=== PATIENT | male | born 1965 | race Caucasian/White ===

== ENCOUNTER 2023-01-06 17:20 | Emergency (ER) | payer BC, OTHER ==
[2023-01-06 17:31] VITALS: PULSE 85; TEMP 98.2
[2023-01-06 18:31] LABS: HCT 44.5 % (39.0-53.0); HGB 15.1 gm/dL (13.0-17.5); MCH 30.4 pg (25.0-35.0); MCHC 33.9 g/dL (31.0-37.0); MCV 89.7 fL (80.0-100.0); Mean Platelet Volume 8.1; Platelet Count 239 k/uL (150-450); RBC 4.96 m/uL (4.30-5.90); RDW 13.2 % (11.5-15.5); WBC 6.1 k/uL (3.8-10.6)
--- NOTE | 2023-01-06 18:44 | ED ---
General Adult HPI - General Chief complaint: Altered Mental Status Stated complaint: ALZHEIMERS OBSERVATION Time Seen by Provider: 01/06/23 17:41 Source: patient, family, police, RN notes reviewed, old records reviewed Mode of arrival: EMS Limitations: altered mental status - History of Present Illness Initial comments: 57-year-old male who is presented for mental health evaluation per patient has known diagnosis of dementia and has had worsening agitation over the past several months. The police and they called to the house innumerable times for b bozena. There's been several medication changes which have not successfully improved the patient's energy level or agitation level. He himself is not able to give any historical details. His is at bedside and local farmer general is also available. Patient has been petitioned for mental health evaluation. - Related Data Allergies Allergy/AdvReac Type Severity Reaction Status Date / Time No Known Allergies Allergy Verified 01/06/23 17:31 Review of Systems ROS Statement: Those systems with pertinent positive or pertinent negative responses have been documented in the HPI. ROS Other: All systems not noted in ROS Statement are negative. Past Medical History Past Medical History: Dementia Additional Past Medical History / Comment(s): Alzheimers General Exam Limitations: altered mental status General appearance: alert, in no apparent distress Head exam: Present: atraumatic, normocephalic Eye exam: Present: normal appearance, PERRL ENT exam: Present: normal exam Neck exam: Present: normal inspection. Absent: tenderness Respiratory exam: Present: normal lung sounds bilaterally. Absent: respiratory distress Cardiovascular Exam: Present: regular rate, normal rhythm GI/Abdominal exam: Present: soft. Absent: distended Extremities exam: Present: normal inspection Neurological exam: Present: alert, CN II-XII intact, normal gait. Absent: oriented X3, motor sensory deficit Psychiatric exam: Present: agitated, anxious Skin exam: Present: warm, dry, intact Course Vital Signs 01/06/23 17:27 Temperature 98.2 F Pulse Rate 85 Respiratory 18 Rate Blood Pressure 154/98 O2 Sat by Pulse 97 Oximetry - Reevaluation(s) Reevaluation #1: 01/06/23 1900 Cleared for EPS Reevaluation #2: 01/06/23 2100 Patient care signed out at shift change awaiting disposition Medical Decision Making - Medical Decision Making Was pt. sent in by a medical professional or institution (Dr., PA, PATENT LEATHER SORTER, urgent care, hospital, or fpc...) When possible be specific @ -No Did you speak to anyone other than the patient for history (EMS, parent, family, police, friend...)? What history was obtained from this source @ -No Did you review nursing and triage notes (agree or disagree)? Why? @ -I reviewed and agree with nursing and triage notes Were old charts reviewed (outside hosp., previous admission, EMS record, old EKG, old radiological studies, urgent care reports/EKG's, fpc records)? Report findings @ -No old charts were reviewed Differential Diagnosis (chest pain, altered mental status, abdominal pain women, abdominal pain men, vaginal bleeding, weakness, fever, dyspnea, syncope, headache, dizziness, GI bleed, back pain, seizure, CVA, palpatations, mental health, musculoskeletal)? @ -not applicable EKG interpreted by me (3pts min.). @ -As above X-rays interpreted by me (1pt min.). @ -None done CT interpreted by me (1pt min.). @ -None done U/S interpreted by me (1pt. min.). @ -None done What testing was considered but not performed or refused? (CT, X-rays, U/S, labs)? Why? @ -None What meds were considered but not given or refused? Why? @ -None Did you discuss the management of the patient with other professionals (professionals i.e. FISH Arriola, [facility] LEATHER SORTER, lab, RT, psych nurse, social media marketer, concrete craftsman, teacher, asset protection officer, shoe parts caser)? Give summary @ Patient patient was evaluated by EPS and ultimately requested discharge and will follow with neurology on Sunday Was smoking cessation discussed for >3mins.? @ -No Was critical care preformed (if so, how long)? @ -No Were there social determinants of health that impacted care today? How? (Homelessness, low income, unemployed, alcoholism, drug addiction, transpo rtation, low edu. Level, literacy, decrease access to med. care, group home, rehab)? @ -No Was there de-escalation of care discussed even if they declined (Discuss DNR or withdrawal of care, Hospice)? DNR status @ -No What co-morbidities impacted this encounter? (DM, HTN, Smoking, COPD, CAD, Cancer, CVA, ARF, Chemo, Hep., AIDS, mental health diagnosis, sleep apnea, morbid obesity)? @ -[Alzheimer dementia Was patient admitted / discharged? Hospital course, mention meds given and route, prescriptions, significant lab abnormalities, going to OR and other pertinent info. @ -[Patient discharged Undiagnosed new problem with uncertain prognosis? @ -No Drug Therapy requiring intensive monitoring for toxicity (Heparin, Nitro, Insulin, Cardizem)? @ -No Were any procedures done? @ -No Diagnosis/symptom? @ Dementia Acute, or Chronic, or Acute on Chronic? @Chronic Uncomplicated (without systemic symptoms) or Complicated (systemic symptoms)? @ -default Side effects of treatment? @ -No Exacerbation, Progression, or Severe Exacerbation? @ -No Poses a threat to life or bodily function? How? (Chest pain, [place], [place], pneumonia, PE, COPD, DKA, ARF, appy, cholecystitis, CVA, Diverticulitis, Homicidal, Suicidal, threat to staff... and all critical care pts) @ -No - Lab Data Result diagrams: 01/06/23 18:14 01/06/23 17:54 Lab Results 01/06/23 01/06/23 01/06/23 Range/Units 17:54 17:54 18:14 WBC 6.1 (3.8-10.6) k/uL RBC 4.96 (4.30-5.90) m/uL Hgb 15.1 (13.0-17.5) gm/dL Hct 44.5 (39.0-53.0) % MCV 89.7 (80.0-100.0) fL MCH 30.4 (25.0-35.0) pg MCHC 33.9 (31.0-37.0) g/dL RDW 13.2 (11.5-15.5) % Plt Count 239 (150-450) k/uL MPV 8.1 Sodium 140 (137-145) mmol/L Potassium 4.1 (3.5-5.1) mmol/L Chloride 106 (98-107) mmol/L Carbon Dioxide 27 (22-30) mmol/L Anion Gap 7 mmol/L BUN 13 (9-20) mg/dL Creatinine 0.72 (0.66-1.25) mg/dL Est GFR (CKD-EPI)AfAm >90 (>60 ml/min/1.73 sqM) Est GFR (CKD-EPI)NonAf >90 (>60 ml/min/1.73 sqM) Glucose 93 (74-99) mg/dL Calcium 9.1 (8.4-10.2) mg/dL Total Bilirubin 0.5 (0.2-1.3) mg/dL AST 33 (17-59) U/L ALT 29 (4-49) U/L Alkaline Phosphatase 63 (38-126) U/L Total Protein 6.9 (6.3-8.2) g/dL Albumin 4.2 (3.5-5.0) g/dL Coronavirus (PCR) Not Detected (Not Detectd) Disposition Clinical Impression: Dementia Disposition: HOME SELF-CARE Condition: Fair Instructions (If sedation given, give patient instructions): Alzheimer Disease (DC), Dementia (ED) Is patient prescribed a controlled substance at d/c from ED?: No Referrals: Bryant Musa MD [Primary Care Provider] - 1-2 days Time of Disposition: 20:05
[2023-01-06] MEDS ORDERED: LORazepam 2 MG/ML INJ IV STA (18:52)
[2023-01-06 19:55] LABS: ALT 29 U/L (4-49); AST 33 U/L (17-59); African American GFR (CKD) >90 (>60 ml/min/1.73 sqM); Albumin 4.2 g/dL (3.5-5.0); Alkaline Phosphatase 63 U/L (38-126); Anion Gap 7 mmol/L; Blood Urea Nitrogen 13 mg/dL (9-20); Calcium 9.1 mg/dL (8.4-10.2); Carbon Dioxide 27 mmol/L (22-30); Chloride 106 mmol/L (98-107); Glucose 93 mg/dL (74-99); Non-African American GFR(CKD) >90 (>60 ml/min/1.73 sqM); Potassium 4.1 mmol/L (3.5-5.1); Sodium 140 mmol/L (137-145); Total Bilirubin 0.5 mg/dL (0.2-1.3); Total Protein 6.9 g/dL (6.3-8.2)
[2023-01-06 20:28] VITALS: BP 144/95; RESP 20
== END 2023-01-06 20:28 | disposition home or self-care (01) ==
LOC: EC 17:20
DX: G30.9 Alzheimer's disease, unspecified (principal); F02.80 Dementia in other diseases classified elsewhere, unspecified severity, without behavioral disturbance, psychotic disturbance, mood disturbance, and anxiety; Z20.822 Contact with and (suspected) exposure to COVID-19
CPT/HCPCS: 96374; 82075; 36415; 80053; 85027; 87635; 99285; J2060; 99284

== ENCOUNTER 2024-05-31 15:50 | Inpatient (IN) | payer BC, OTHER ==
--- NOTE | 2024-05-31 16:00 | ED ---
Altered Mental Status HPI - General Stated Complaint: AMS Time Seen by Provider: 05/31/24 15:52 Source: RN notes reviewed, old records reviewed Mode of arrival: EMS Limitations: altered mental status, physical limitation - History of Present Illness Initial Comments: This is a 58-year-old male to the ER. Patient has underlying significant dementia unable to provide accurate history but per staffing at facility patient's mental health is significantly deteriorated, changed change in mental capacity and responsiveness. Patient is unable to give any history here in the emergency department MD Complaint: altered mental status, decreased responsiveness, weakness -: unknown Severity: moderate Consistency of Symptoms: getting worse Context: history of similar presentation Associated Symptoms: weakness Treatments Prior to Arrival: oxygen - Related Data Home Medications Medication Instructions Recorded Confirmed FLUoxetine HCL [Sarafem] 60 mg PO MOTUWETHFR 05/31/24 05/31/24 Haloperidol Oral Soln [Haldol Oral 2 mg PO DAILY 05/31/24 05/31/24 Soln] Valproic Acid Oral Soln [Depakene 500 mg PO BID 05/31/24 05/31/24 Syrup] Previous Rx's Medication Instructions Recorded Memantine [Namenda] 5 mg PO BID 30 Days #60 tab 06/06/24 Ertapenem [INVanz] 1 gm IVPB DAILY #28 each 06/07/24 Fluconazole [Diflucan] 200 mg PO DAILY 14 Days #14 tab 06/07/24 Allergies Allergy/AdvReac Type Severity Reaction Status Date / Time No Known Allergies Allergy Verified 06/02/24 13:01 Review of Systems ROS Statement: Those systems with pertinent positive or pertinent negative responses have been documented in the HPI. ROS Other: All systems not noted in ROS Statement are negative. Past Medical History Past Medical History: Dementia Additional Past Medical History / Comment(s): Alzheimers General Exam Limitations: altered mental status, physical limitation General appearance: alert, in no apparent distress Head exam: Present: atraumatic, normocephalic, normal inspection Eye exam: Present: normal appearance, PERRL, EOMI. Absent: scleral icterus, conjunctival injection, periorbital swelling ENT exam: Present: normal exam, mucous membranes moist Neck exam: Present: normal inspection. Absent: tenderness, meningismus, lymphadenopathy Respiratory exam: Present: normal lung sounds bilaterally. Absent: respiratory distress, wheezes, rales, rhonchi, stridor Cardiovascular Exam: Present: regular rate, normal rhythm, normal heart sounds. Absent: systolic murmur, diastolic murmur, rubs, gallop, clicks GI/Abdominal exam: Present: soft, normal bowel sounds. Absent: distended, tenderness, guarding, rebound, rigid Extremities exam: Present: normal inspection, full ROM, normal capillary refill. Absent: tenderness, pedal edema, joint swelling, calf tenderness Back exam: Present: normal inspection Neurological exam: Present: alert, oriented X3, CN II-XII intact Psychiatric exam: Present: normal affect, normal mood Skin exam: Present: warm, dry, intact, normal color. Absent: rash Course Vital Signs 05/31/24 05/31/24 05/31/24 16:19 17:18 19:04 Temperature 97.6 F Pulse Rate 72 74 89 Respiratory 18 18 16 Rate Blood Pressure 95/82 111/63 121/84 O2 Sat by Pulse 100 97 99 Oximetry 05/31/24 20:47 Temperature 98.4 F Pulse Rate 89 Respiratory 16 Rate Blood Pressure 103/63 O2 Sat by Pulse 97 Oximetry - Reevaluation(s) Reevaluation #1: 05/31/24 16:32 Medical records reviewed Reevaluation #2: 05/31/24 17:42 No change in symptoms here in the ER Reevaluation #3: 05/31/24 17:42 Patient informed of results questions answered Reevaluation #4: Was pt. sent in by a medical professional or institution (, PA, CAR CUSTOMIZER, urgent care, hospital, or fci...) When possible be specific @ -no Did you speak to anyone other than the patient for history (EMS, parent, family, police, friend...)? What history was obtained from this source @ -no Did you review nursing and triage notes (agree or disagree)? Why? @ -agree Are old charts reviewed (outside hosp., previous admission, EMS record, old EKG, old radiological studies, urgent care reports/EKG's, fci records)? Report findings @ -yes Differential Diagnosis (chest pain, altered mental status, abdominal pain women, abdominal pain men, vaginal bleeding, weakness, fever, dyspnea, syncope, headache, dizziness, GI bleed, back pain, seizure, CVA, palpatations, mental health, musculoskeletal)? @ -prior EKG interpreted by me (3pts min.). @ -yes X-rays interpreted by me (1pt min.). @ -yes negative for acute disease CT interpreted by me (1pt min.). @ -Yes negative for acute disease U/S interpreted by me (1pt. min.). @ -no What testing was considered but not performed or refused? (CT, X-rays, U/S, labs)? Why? @ -none What meds were considered but not given or refused? Why? @ -none Did you discuss the management of the patient with other professionals (professionals i.e. , PA, CAR CUSTOMIZER, lab, RT, psych nurse, social worker aide, sales representative door to door, teacher, jail officer, director of casework)? Give summary @ -no Was smoking cessation discussed for >3mins.? @ -no Was critical care preformed (if so, how long)? @ -no Were there social determinants of health that impacted care today? How? (Homelessness, low income, unemployed, alcoholism, drug addiction, transportation, low edu. Level, literacy, decrease access to med. care, halfway, rehab)? @ -none Was there de-escalation of care discussed even if they declined (Discuss DNR or withdrawal of care, Hospice)? DNR status @ -no What co-morbidities impacted this encounter? (DM, HTN, Smoking, COPD, CAD, Cancer, CVA, ARF, Chemo, Hep., AIDS, mental health diagnosis, sleep apnea, morbid obesity)? @ -none Was patient admitted / discharged? Hospital course, mention meds given and route, prescriptions, significant lab abnormalities, going to OR and other pertinent info. @ - 58 male, patient has had increasing weakness and difficulty living alone to the emergency department with weakness today, patient has significant weakness unable to take care of himself at home unsafe to be at home patient cannot be discharged home as he is unsafe at home Admitted Undiagnosed new problem with uncertain prognosis? @ -no Drug Therapy requiring intensive monitoring for toxicity (Heparin, Nitro, Insulin, Cardizem)? @ -no Were any procedures done? @ -no Diagnosis/symptom? @ -Weakness and debility Acute, or Chronic, or Acute on Chronic? @ -Acute Uncomplicated (without systemic symptoms) or Complicated (systemic symptoms)? @ -Complicated Side effects of treatment? @ -no Exacerbation, Progression, or Severe Exacerbation? @ -exacerbation Poses a threat to life or bodily function? How? (Chest pain, [place], [place], pneumonia, PE, COPD, DKA, ARF, appy, cholecystitis, CVA, Diverticulitis, Homicidal, Suicidal, threat to staff... and all critical care pts) @ -yes severe weakness Reevaluation #5: Differential Altered Mental Status: Hypoglycemia, DKA, hypercapnia, ETOH, overdose, CO poisoning, trauma, myxedema coma, HTN encephalopathy, infection, encephalitis, psychosis, intercranial hemorrhage, hepatic encephalopathy, meningitis, CVA, this is not meant to be an all-inclusive list - Consultations Consultation #1: Spoke with sound who agrees to admit this patient sound Medical Decision Making - Medical Decision Making 58 male, patient has had increasing weakness and difficulty living alone to the emergency department with weakness today, patient has significant weakness unable to take care of himself at home unsafe to be at home patient cannot be discharged home as he is unsafe at home - Lab Data Result diagrams: 06/06/24 04:31 06/06/24 04:24 Lab Results 05/31/24 05/31/24 05/31/24 Range/Units 16:34 16:34 16:34 WBC 13.1 H (3.8-10.6) k/uL RBC 4.24 L (4.30-5.90) m/uL Hgb 13.3 (13.0-17.5) gm/dL Hct 39.9 (39.0-53.0) % MCV 94.1 (80.0-100.0) fL MCH 31.5 (25.0-35.0) pg MCHC 33.4 (31.0-37.0) g/dL RDW 13.4 (11.5-15.5) % Plt Count 191 (150-450) k/uL Estimated Plt Count (Adequate) MPV 8.8 Immature Gran % (Auto) % Absolute Nucleated RBC % Neutrophils % 92 % Lymphocytes % 3 % Monocytes % 3 % Eosinophils % 1 % Basophils % 0 % Immature Gran # (0.00-0.04) X 10*3/uL Neutrophils # 12.0 H (1.3-7.7) k/uL Lymphocytes # 0.4 L (1.0-4.8) k/uL Monocytes # 0.3 (0-1.0) k/uL Eosinophils # 0.1 (0-0.7) k/uL Basophils # 0.0 (0-0.2) k/uL NRBC/100 WBC Diff (0.00-0.01) X 10*3/uL Manual Slide Review PT 11.6 (10.0-12.5) sec INR 1.1 (<1.2) APTT 28.3 (22.0-30.0) sec Sodium (137-145) mmol/L Potassium (3.5-5.1) mmol/L Chloride (98-107) mmol/L Carbon Dioxide (22-30) mmol/L Anion Gap mmol/L BUN (9-20) mg/dL Creatinine (0.66-1.25) mg/dL Est GFR (CKD-EPI) (>=60) Est GFR (CKD-EPI)AfAm (>60 ml/min/1.73 sqM) Est GFR (CKD-EPI)NonAf (>60 ml/min/1.73 sqM) BUN/Creatinine Ratio (12.00-20.00) Ratio Glucose (74-99) mg/dL POC Glucose (mg/dL) (70-110) mg/dL POC Glu Metal Furrer ID Calcium (8.4-10.2) mg/dL Phosphorus (2.5-4.5) mg/dL Magnesium (1.6-2.3) mg/dL Total Bilirubin (0.2-1.3) mg/dL AST (17-59) U/L ALT (4-49) U/L Alkaline Phosphatase (38-126) U/L Ammonia (<30) umol/L Troponin I (0.000-0.034) ng/mL Total Protein (6.3-8.2) g/dL Albumin (3.5-5.0) g/dL Globulin (1.6-3.3) g/dL Albumin/Globulin Ratio (1.60-3.17) Ratio Vitamin B12 (200.0-944.0) pg/mL RBC Folate (280 - 791) ng/mL TSH (0.465-4.680) mIU/L Urine Color Yellow Urine Appearance Clear (Clear) Urine pH 6.0 (5.0-8.0) Ur Specific [place] 1.032 (1.001-1.035) Urine Protein 1+ H (Negative) Urine Glucose (UA) Negative (Negative) Urine Ketones Negative (Negative) Urine Blood Small H (Negative) Urine Nitrite Negative (Negative) Urine Bilirubin Negative (Negative) Urine Urobilinogen 2.0 (<2.0) mg/dL Ur Leukocyte Esterase Negative (Negative) Urine RBC 1 (0-5) /hpf Urine WBC 1 (0-5) /hpf Urine Mucus Moderate H (None) /hpf Urine Opiates Screen Not Detected (NotDetected) Ur Oxycodone Screen Not Detected (NotDetected) Urine Methadone Screen Not Detected (NotDetected) Ur Barbiturates Screen Not Detected (NotDetected) Valproic Acid ug/mL U Tricyclic Antidepress Not Detected (NotDetected) Ur Phencyclidine Scrn Not Detected (NotDetected) Ur Amphetamines Screen Not Detected (NotDetected) U Methamphetamines Scrn Not Detected (NotDetected) U Benzodiazepines Scrn Detected H (NotDetected) Urine Cocaine Screen Not Detected (NotDetected) U Marijuana (THC) Screen Not Detected (NotDetected) Serum Alcohol mg/dL 05/31/24 05/31/24 05/31/24 Range/Units 16:34 16:34 16:34 WBC (3.8-10.6) k/uL RBC (4.30-5.90) m/uL Hgb (13.0-17.5) gm/dL Hct (39.0-53.0) % MCV (80.0-100.0) fL MCH (25.0-35.0) pg MCHC (31.0-37.0) g/dL RDW (11.5-15.5) % Plt Count (150-450) k/uL Estimated Plt Count (Adequate) MPV Immature Gran % (Auto) % Absolute Nucleated RBC % Neutrophils % % Lymphocytes % % Monocytes % % Eosinophils % % Basophils % % Immature Gran # (0.00-0.04) X 10*3/uL Neutrophils # (1.3-7.7) k/uL Lymphocytes # (1.0-4.8) k/uL Monocytes # (0-1.0) k/uL Eosinophils # (0-0.7) k/uL Basophils # (0-0.2) k/uL NRBC/100 WBC Diff (0.00-0.01) X 10*3/uL Manual Slide Review PT (10.0-12.5) sec INR (<1.2) APTT (22.0-30.0) sec Sodium 140 (137-145) mmol/L Potassium 3.9 (3.5-5.1) mmol/L Chloride 103 (98-107) mmol/L Carbon Dioxide 34 H (22-30) mmol/L Anion Gap 3 mmol/L BUN 28 H (9-20) mg/dL Creatinine 0.58 L (0.66-1.25) mg/dL Est GFR (CKD-EPI) (>=60) Est GFR (CKD-EPI)AfAm >90 (>60 ml/min/1.73 sqM) Est GFR (CKD-EPI)NonAf >90 (>60 ml/min/1.73 sqM) BUN/Creatinine Ratio (12.00-20.00) Ratio Glucose 90 (74-99) mg/dL POC Glucose (mg/dL) (70-110) mg/dL POC Glu Metal Furrer ID Calcium 9.2 (8.4-10.2) mg/dL Phosphorus 2.9 (2.5-4.5) mg/dL Magnesium 2.3 (1.6-2.3) mg/dL Total Bilirubin 0.4 (0.2-1.3) mg/dL AST 35 (17-59) U/L ALT 29 (4-49) U/L Alkaline Phosphatase 75 (38-126) U/L Ammonia <9 (<30) umol/L Troponin I <0.012 (0.000-0.034) ng/mL Total Protein 5.0 L (6.3-8.2) g/dL Albumin 2.4 L (3.5-5.0) g/dL Globulin (1.6-3.3) g/dL Albumin/Globulin Ratio (1.60-3.17) Ratio Vitamin B12 (200.0-944.0) pg/mL RBC Folate (280 - 791) ng/mL TSH 1.150 (0.465-4.680) mIU/L Urine Color Urine Appearance (Clear) Urine pH (5.0-8.0) Ur Specific [place] (1.001-1.035) Urine Protein (Negative) Urine Glucose (UA) (Negative) Urine Ketones (Negative) Urine Blood (Negative) Urine Nitrite (Negative) Urine Bilirubin (Negative) Urine Urobilinogen (<2.0) mg/dL Ur Leukocyte Esterase (Negative) Urine RBC (0-5) /hpf Urine WBC (0-5) /hpf Urine Mucus (None) /hpf Urine Opiates Screen (NotDetected) Ur Oxycodone Screen (NotDetected) Urine Methadone Screen (NotDetected) Ur Barbiturates Screen (NotDetected) Valproic Acid ug/mL U Tricyclic Antidepress (NotDetected) Ur Phencyclidine Scrn (NotDetected) Ur Amphetamines Screen (NotDetected) U Methamphetamines Scrn (NotDetected) U Benzodiazepines Scrn (NotDetected) Urine Cocaine Screen (NotDetected) U Marijuana (THC) Screen (NotDetected) Serum Alcohol <10 mg/dL 05/31/24 06/01/24 06/01/24 Range/Units 16:39 05:18 05:18 WBC 12.41 H (3.8-10.6) k/uL RBC 3.82 L (4.30-5.90) m/uL Hgb 11.6 L (13.0-17.5) gm/dL Hct 36.1 L (39.0-53.0) % MCV 94.5 (80.0-100.0) fL MCH 30.4 (25.0-35.0) pg MCHC 32.1 (31.0-37.0) g/dL RDW 14.3 (11.5-15.5) % Plt Count 224 (150-450) k/uL Estimated Plt Count Adequate (Adequate) MPV 12.2 Immature Gran % (Auto) 0.60 % Absolute Nucleated RBC 0 % Neutrophils % 88.6 % Lymphocytes % 4.1 % Monocytes % 6.4 % Eosinophils % 0.1 % Basophils % 0.2 % Immature Gran # 0.08 H (0.00-0.04) X 10*3/uL Neutrophils # 10.98 H (1.3-7.7) k/uL Lymphocytes # 0.51 L (1.0-4.8) k/uL Monocytes # 0.80 (0-1.0) k/uL Eosinophils # 0.01 L (0-0.7) k/uL Basophils # 0.03 (0-0.2) k/uL NRBC/100 WBC Diff 0 (0.00-0.01) X 10*3/uL Manual Slide Review Morph Only PT (10.0-12.5) sec INR (<1.2) APTT (22.0-30.0) sec Sodium 147 H (137-145) mmol/L Potassium 3.7 (3.5-5.1) mmol/L Chloride 110 H (98-107) mmol/L Carbon Dioxide 27.2 (22-30) mmol/L Anion Gap 9.80 mmol/L BUN 21.0 (9-20) mg/dL Creatinine 0.5 L (0.66-1.25) mg/dL Est GFR (CKD-EPI) 117 (>=60) Est GFR (CKD-EPI)AfAm (>60 ml/min/1.73 sqM) Est GFR (CKD-EPI)NonAf (>60 ml/min/1.73 sqM) BUN/Creatinine Ratio 42.00 H (12.00-20.00) Ratio Glucose 79 (74-99) mg/dL POC Glucose (mg/dL) 90 (70-110) mg/dL POC Glu Metal Furrer ID Janae Austin Calcium 8.3 L (8.4-10.2) mg/dL Phosphorus 2.5 (2.5-4.5) mg/dL Magnesium 1.9 (1.6-2.3) mg/dL Total Bilirubin 0.4 (0.2-1.3) mg/dL AST 33 (17-59) U/L ALT 29 (4-49) U/L Alkaline Phosphatase 65 (38-126) U/L Ammonia (<30) umol/L Troponin I (0.000-0.034) ng/mL Total Protein 4.3 L (6.3-8.2) g/dL Albumin 2.3 L (3.5-5.0) g/dL Globulin 2.0 (1.6-3.3) g/dL Albumin/Globulin Ratio 1.15 L (1.60-3.17) Ratio Vitamin B12 745.0 (200.0-944.0) pg/mL RBC Folate (280 - 791) ng/mL TSH (0.465-4.680) mIU/L Urine Color Urine Appearance (Clear) Urine pH (5.0-8.0) Ur Specific [place] (1.001-1.035) Urine Protein (Negative) Urine Glucose (UA) (Negative) Urine Ketones (Negative) Urine Blood (Negative) Urine Nitrite (Negative) Urine Bilirubin (Negative) Urine Urobilinogen (<2.0) mg/dL Ur Leukocyte Esterase (Negative) Urine RBC (0-5) /hpf Urine WBC (0-5) /hpf Urine Mucus (None) /hpf Urine Opiates Screen (NotDetected) Ur Oxycodone Screen (NotDetected) Urine Methadone Screen (NotDetected) Ur Barbiturates Screen (NotDetected) Valproic Acid ug/mL U Tricyclic Antidepress (NotDetected) Ur Phencyclidine Scrn (NotDetected) Ur Amphetamines Screen (NotDetected) U Methamphetamines Scrn (NotDetected) U Benzodiazepines Scrn (NotDetected) Urine Cocaine Screen (NotDetected) U Marijuana (THC) Screen (NotDetected) Serum Alcohol mg/dL 06/01/24 06/01/24 Range/Units 05:18 05:18 WBC (3.8-10.6) k/uL RBC (4.30-5.90) m/uL Hgb (13.0-17.5) gm/dL Hct (39.0-53.0) % MCV (80.0-100.0) fL MCH (25.0-35.0) pg MCHC (31.0-37.0) g/dL RDW (11.5-15.5) % Plt Count (150-450) k/uL Estimated Plt Count (Adequate) MPV Immature Gran % (Auto) % Absolute Nucleated RBC % Neutrophils % % Lymphocytes % % Monocytes % % Eosinophils % % Basophils % % Immature Gran # (0.00-0.04) X 10*3/uL Neutrophils # (1.3-7.7) k/uL Lymphocytes # (1.0-4.8) k/uL Monocytes # (0-1.0) k/uL Eosinophils # (0-0.7) k/uL Basophils # (0-0.2) k/uL NRBC/100 WBC Diff (0.00-0.01) X 10*3/uL Manual Slide Review PT (10.0-12.5) sec INR (<1.2) APTT (22.0-30.0) sec Sodium (137-145) mmol/L Potassium (3.5-5.1) mmol/L Chloride (98-107) mmol/L Carbon Dioxide (22-30) mmol/L Anion Gap mmol/L BUN (9-20) mg/dL Creatinine (0.66-1.25) mg/dL Est GFR (CKD-EPI) (>=60) Est GFR (CKD-EPI)AfAm (>60 ml/min/1.73 sqM) Est GFR (CKD-EPI)NonAf (>60 ml/min/1.73 sqM) BUN/Creatinine Ratio (12.00-20.00) Ratio Glucose (74-99) mg/dL POC Glucose (mg/dL) (70-110) mg/dL POC Glu Metal Furrer ID Calcium (8.4-10.2) mg/dL Phosphorus (2.5-4.5) mg/dL Magnesium (1.6-2.3) mg/dL Total Bilirubin (0.2-1.3) mg/dL AST (17-59) U/L ALT (4-49) U/L Alkaline Phosphatase (38-126) U/L Ammonia (<30) umol/L Troponin I (0.000-0.034) ng/mL Total Protein (6.3-8.2) g/dL Albumin (3.5-5.0) g/dL Globulin (1.6-3.3) g/dL Albumin/Globulin Ratio (1.60-3.17) Ratio Vitamin B12 (200.0-944.0) pg/mL RBC Folate 599 (280 - 791) ng/mL TSH (0.465-4.680) mIU/L Urine Color Urine Appearance (Clear) Urine pH (5.0-8.0) Ur Specific [place] (1.001-1.035) Urine Protein (Negative) Urine Glucose (UA) (Negative) Urine Ketones (Negative) Urine Blood (Negative) Urine Nitrite (Negative) Urine Bilirubin (Negative) Urine Urobilinogen (<2.0) mg/dL Ur Leukocyte Esterase (Negative) Urine RBC (0-5) /hpf Urine WBC (0-5) /hpf Urine Mucus (None) /hpf Urine Opiates Screen (NotDetected) Ur Oxycodone Screen (NotDetected) Urine Methadone Screen (NotDetected) Ur Barbiturates Screen (NotDetected) Valproic Acid 18.1 ug/mL U Tricyclic Antidepress (NotDetected) Ur Phencyclidine Scrn (NotDetected) Ur Amphetamines Screen (NotDetected) U Methamphetamines Scrn (NotDetected) U Benzodiazepines Scrn (NotDetected) Urine Cocaine Screen (NotDetected) U Marijuana (THC) Screen (NotDetected) Serum Alcohol mg/dL - EKG Data -: EKG Interpreted by Me (EKG is sinus 80 KS 142 QRS 94 QTc 425) - Radiology Data Radiology results: report reviewed (CT brain chest x-ray negative for acute disease), image reviewed Disposition Clinical Impression: Altered mental status, Delirium due to general medical condition, Dementia, Weakness Disposition: ADMITTED IP TO THIS [facility] Condition: Stable Is patient prescribed a controlled substance at d/c from ED?: No Time of Disposition: 17:40
[2024-05-31] MEDS: SODIUM CHLORIDE 0.9% 500 ML 500 ML IV ONE (16:37)
[2024-05-31] MEDS: SODIUM CHLORIDE 0.9% 1,000 ML IV ONE ×2 (16:37→18:15)
[2024-05-31 16:41] LABS: Glucose,Whole Blood 90 mg/dL (70-110)
[2024-05-31 16:48] LABS: Basophils % (A) 0 %; Eosinophils # (A) 0.1 k/uL (0-0.7); Eosinophils % (A) 1 %; HCT 39.9 % (39.0-53.0); HGB 13.3 gm/dL (13.0-17.5); Lymphocytes # (A) 0.4 k/uL (1.0-4.8); Lymphocytes % (A) 3 %; MCH 31.5 pg (25.0-35.0); MCHC 33.4 g/dL (31.0-37.0); MCV 94.1 fL (80.0-100.0); Mean Platelet Volume 8.8; Monocytes # (A) 0.3 k/uL (0-1.0); Monocytes % (A) 3 %; Neutrophils % (A) 92 %; Platelet Count 191 k/uL (150-450); RBC 4.24 m/uL (4.30-5.90); RDW 13.4 % (11.5-15.5); WBC 13.1 k/uL (3.8-10.6)
[2024-05-31 16:53] LABS: Appearance,Urine Clear (Clear); Bilirubin,Urine Negative (Negative); Blood,Urine Small (Negative); Color,Urine Yellow; Glucose,Urine (UA) Negative (Negative); Ketones,Urine Negative (Negative); Leukocyte Esterase,Urine Negative (Negative); Mucus,Urine Moderate /hpf; Nitrite,Urine Negative (Negative); Protein,Urine 1+ (Negative); RBC,Urine 1 /hpf (0-5); Specific Gravity,Urine 1.032 (1.001-1.035); WBC,Urine 1 /hpf (0-5)
[2024-05-31 17:00] LABS: ALT 29 U/L (4-49); AST 35 U/L (17-59); African American GFR (CKD) >90 (>60 ml/min/1.73 sqM); Albumin 2.4 g/dL (3.5-5.0); Alcohol <10 mg/dL; Alkaline Phosphatase 75 U/L (38-126); Anion Gap 3 mmol/L; Blood Urea Nitrogen 28 mg/dL (9-20); Calcium 9.2 mg/dL (8.4-10.2); Carbon Dioxide 34 mmol/L (22-30); Chloride 103 mmol/L (98-107); Glucose 90 mg/dL (74-99); Magnesium 2.3 mg/dL (1.6-2.3); Non-African American GFR(CKD) >90 (>60 ml/min/1.73 sqM); Phosphorus 2.9 mg/dL (2.5-4.5); Potassium 3.9 mmol/L (3.5-5.1); Sodium 140 mmol/L (137-145); Total Bilirubin 0.4 mg/dL (0.2-1.3)
--- NOTE | 2024-05-31 17:04 | XR ---
EXAMINATION TYPE: XR chest 2V DATE OF EXAM: 05/31/2024 4:54 PM COMPARISON: None CLINICAL INDICATION: Male, 58 years old with history of altered mental status; MERGED WITH [facility] TECHNIQUE: XR chest 2V Frontal and lateral views of the chest. FINDINGS: Lungs/Pleura: There is no evidence of pleural effusion, focal consolidation, or pneumothorax. Pulmonary vascularity: Unremarkable. Heart/mediastinum: Cardiomediastinal silhouette is unremarkable. Musculoskeletal: No acute osseous pathology. IMPRESSION: No acute cardiopulmonary disease/process. [facility], , 05/31/2024 5:01 PM
[2024-05-31 17:05] LABS: INR 1.1 (<1.2); Partial Thromboplastin Time 28.3 sec (22.0-30.0); Prothrombin Time 11.6 sec (10.0-12.5)
--- NOTE | 2024-05-31 17:07 | CT ---
EXAMINATION TYPE: CT brain wo con DATE OF EXAM: 05/31/2024 4:51 PM COMPARISON: None. CLINICAL INDICATION: Male, 58 years old with history of Altered mental status, AMS TECHNIQUE: Brain: Axial CT images of the brain were obtained with coronal and sagittal reformats created and rev iewed. Contrast used: None. Oral contrast used: None. CT DLP: 1125.4 mGycm, Automated exposure control for dose reduction was used. FINDINGS: Brain: Extra-axial spaces: No abnormal extra-axial fluid collections. Ventricular system: Dilatation in proportion to cerebral atrophy. Cerebral parenchyma: Cerebral atrophy. No acute intraparenchymal hemorrhage or mass effect. The kim -white junction is well differentiated. Scattered hypoattenuating areas are seen within the white mat ter. Cerebellum: Unremarkable. Mass effect: No evidence of midline shift. Intracranial vasculature: Atherosclerotic calcifications of the intracranial vessels. Soft tissues: Normal. Calvarium/osseous structures: No depressed skull fracture. Paranasal sinuses and mastoid air cells: Mild scattered paranasal sinus disease. Visualized orbits: Orbital contents are intact. IMPRESSION: 1. No acute intracranial process. 2. Nonspecific white matter changes, likely secondary to chronic small vessel ischemic disease. [facility], , 05/31/2024 5:05 PM
[2024-05-31 17:13] LABS: Amphetamine Screen,Urine Not Detected (NotDetected); Barbiturate Screen,Urine Not Detected (NotDetected); Benzodiazepines Screen,Urine Detected (NotDetected); Cocaine Screen,Urine Not Detected (NotDetected); Methadone Screen, Urine Not Detected (NotDetected); Opiate Screen,Urine Not Detected (NotDetected); Oxycodone Screen, Urine Not Detected (NotDetected); Phencyclidine Screen,Urine Not Detected (NotDetected); Tricyclic Antidepressant,Urine Not Detected (NotDetected); Urn Cannabinoid Scrn Not Detected (NotDetected)
[2024-05-31] MEDS ORDERED: NALOXONE 0.4 MG/ML 1 ML VIAL IV PRN (18:38)
[2024-05-31] MEDS ORDERED: MORPHINE SULFATE 4 MG/ML SYRINGE IV PRN (18:38)
[2024-05-31] MEDS: SODIUM CHLORIDE 0.9% 1,000 ML IV SCH (19:09)
--- NOTE | 2024-06-01 00:37 | P.HPIM ---
History of Present Illness H&P Date: 06/01/24 Patient is a 58-year-old male with PMH of dementia, possible Alzheimer's disease, is brought to the emergency department via EMS with concerns regarding altered mental status. Patient is unable to provide any meaningful history at this time. History is obtained from patient's Nirmala via telephone call. 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 According to the , he was never diagnosed with Alzheimer's disease and believe that his dementia could also be linked to his exposure to ch emical from car paints which he has been doing since the age of 7. Normally, he is active, generally independent in his ADLs and stays in a happy mood. According to her, he has been more confused, delirious, irritable since he got COVID-19 infection in April 2024. He is also refusing his medications and food resulting in weakness and weight loss. She also noticed mild redness and tenderness on his buttock crease a month ago after he has been struggling to sit because of pain. Since, past few days he has been complaining of more pain with movements. Patient was examined by the physician at the [facility] 3 days ago where he was was prescribed Rocephin. Of note, there is a positive family history of dementia in patient's father however is unsure. No history of polysubstance use. No history of seizure disorder. Laboratory data: WBC 13.1, hemoglobin 13.3, hematocrit 39.9, platelet count 191, PT 11.6, INR 1.1, APTT 28.3, sodium 140, potassium 3.9, chloride 103, bicarb 34, BUN 28, creatinine 0.58, glucose 190, magnesium 2.3, calcium 9.2, AST 35, ALT 29, ALP 75, TSH 1.15. UA is remarkable for proteinuria and mild hematuria UDS positive for benzodiazepine Images: Chest x-ray interpreted independently shows no acute cardiopulmonary process EKG interpreted independently shows normal sinus rhythm. CA interval 142 ms. QRS duration 94 ms. QTc 425. Normal R wave progression. Brain CT shows cerebral atrophy with no acute intraparenchymal hemorrhage or mass effect. Otherwise no acute intracranial process. Vitals: Tmax 98.4 F, pulse rate 89, respiratory rate 16, blood pressure 103/63, oxygen saturation 97% on room air Review of systems: Unable to obtain due to mental status Social history: Tobacco: None Alcohol: Social Recreational drugs: None Family History: Possible dementia in father Physical examination: Vital signs reviewed General: non toxic, no distress, appears at stated age, underweight Derm: 7 cm intergluteal cleft unstageable necrotic ulcer surrounded by moderate to severe erythema associated with purulent discharge and a foul smell Head: atraumatic, normocephalic, symmetric Eyes: EOMI, no lid lag, anicteric sclera, pupils equal round reactive to light ENT: Nose and ears atraumatic Neck: No cervical lymphadenopathy, trachea midline, supple Mouth: no lip lesion, mucus membranes moist Cardiovascular: S1S2 reg, no murmur, positive dorsalis pedis pulse bilateral, no edema Lungs: CTA bilateral, no rhonchi, no rales, no accessory muscle use Abdominal: soft, nontender to palpation, no guarding Ext: muscle strength 5 out of 5 in all 4 extremities grossly, no gross muscle atrophy, no contractures, Neuro: CN II-XI grossly intact, no gross focal neuro deficits Psych: Patient is confused with altered mentation, AO x 0 Assessment/Plan: This is a 58-year-old male with possible history of Alzheimer's/dementia brought to the ER via EMS for altered mental status. History obtained from patient's .. Case was discussed with the Emergency Room provider and decision was made to admit the patient for altered mental status likely due to acute toxic metabolic encephalopathy #Altered mental status likely secondary to toxic metabolic encephalopathy (Infectious versus metabolic versus COVID-19 encephalopathy versus polysubstance use) #Alzheimer's dementia reported by spouse WBC 13.1 Sepsis criteria:05/17 Chest x-ray interpreted independently shows no acute cardiopulmonary process Brain CT shows cerebral atrophy with no acute intraparenchymal hemorrhage or mass effect. Otherwise no acute intracranial process. Consult neurology Patient is currently not at his baseline mentation Fall precautions PT/OT UDS positive for benzodiazepine Patient on valproic acid 500 mg p.o. twice daily and haloperidol 2 mg p.o. daily for agitation; resume meds Check levels of valproic acid Order Vitamin b12 and rbc folate # Intragluteal cleft necrotic ulcer Obtain wound culture Blood culture x 2 sets IV Zosyn 3.375 g IVP every 8 hour and IV vancomycin dosing per pharmacy Consult infectious disease Consult wound care CBC tomorrow am #Suspected contraction alkalosis likely in the setting of dehydration Bicarb 34 IV normal saline at 75 cc/h Continue monitor BMP BMP tomorrow am DVT prophylaxis: Lovenox 40 mg subcu daily GI prophylaxis: Protonix 40 mg IV daily F: IV normal saline at 75 cc/h E: Replete as needed N: Regular A: Patient ambulatory at baseline The patient is admitted with an anticipated more than 2 midnight stay for evaluation of acute metabolic encephalopathy CODE STATUS: Full code Discussed with: Nirmala who is POA Anticipated discharge place: Pending clinical course Dictation was produced using [employer] dictation software. Please excuse any grammatical, word or spelling errors. Past Medical History Past Medical History: Dementia Additional Past Medical History / Comment(s): Alzheimers History of Any Multi-Drug Resistant Organisms: Unobtainable Additional Past Surgical History / Comment(s): eye surgery metal flake removed from eye in past Past Psychological History: Unable to Obtain Smoking Status: Unknown if ever smoked Past Alcohol Use History: Unable to Obtain Past Drug Use History: Unable to Obtain Medications and Allergies Home Medications Medication Instructions Recorded Confirmed Type FLUoxetine HCL [Sarafem] 60 mg PO MOTUWETHFR 05/31/24 05/31/24 History Haloperidol Oral Soln [Haldol Oral 2 mg PO DAILY 05/31/24 05/31/24 History Soln] Valproic Acid Oral Soln [Depakene 500 mg PO BID 05/31/24 05/31/24 History Syrup] cefTRIAXone [Rocephin] 1 gm IM DAILY 05/31/24 05/31/24 History Allergies Allergy/AdvReac Type Severity Reaction Status Date / Time No Known Allergies Allergy Verified 05/31/24 19:05 Physical Exam Vitals: Vital Signs Temp Pulse Pulse Resp BP BP Pulse Ox 05/31/24 23:07 99.2 F 65 107/68 97 05/31/24 20:47 98.4 F 89 16 103/63 97 05/31/24 19:04 89 16 121/84 99 05/31/24 17:18 74 18 111/63 97 05/31/24 16:19 97.6 F 72 18 95/82 100 Intake and Output 05/31/24 05/31/24 06/01/24 14:59 22:59 06:59 Output Total 300 Balance -300 Output: Urine 300 Other: Weight 65.771 kg Results CBC & Chem 7: 05/31/24 16:34 05/31/24 16:34 Labs: Abnormal Lab Results - Last 24 Hours (Table) 05/31/24 05/31/24 05/31/24 Range/Units 16:34 16:34 16:34 WBC 13.1 H (3.8-10.6) k/uL RBC 4.24 L (4.30-5.90) m/uL Neutrophils # 12.0 H (1.3-7.7) k/uL Lymphocytes # 0.4 L (1.0-4.8) k/uL Carbon Dioxide 34 H (22-30) mmol/L BUN 28 H (9-20) mg/dL Creatinine 0.58 L (0.66-1.25) mg/dL Total Protein 5.0 L (6.3-8.2) g/dL Albumin 2.4 L (3.5-5.0) g/dL Urine Protein 1+ H (Negative) Urine Blood Small H (Negative) Urine Mucus Moderate H (None) /hpf U Benzodiazepines Scrn Detected H (NotDetected) Thrombosis Risk Factor Assmnt - Choose All That Apply Any of the Below Risk Factors Present?: Yes Each Factor Represents 1 point: Age 41-60 years Each Risk Factor Represents 3 Points: Family history of DVT/PE Thrombosis Risk Factor Assessment Total Risk Factor Score: 4 Thrombosis Risk Factor Assessment Level: Moderate Risk
[2024-06-01] MEDS ORDERED: VANCOMYCIN IV PER PHARMACY 1 EACH MISC MISCELLANE PRN (01:55)
[2024-06-01] MEDS: PIPERACILLIN-TAZOBACTAM 3.375 GM in SODIUM CHLORIDE 0.9% 100 ML IVPB SCH (03:32)
[2024-06-01] MEDS: VANCOMYCIN 1,500 MG in SODIUM CHLORIDE 0.9% 500 ML 500 ML IVPB ONE (03:49)
[2024-06-01] MEDS: HALOPERIDOL ORAL SOLN 10 MG/5 ML CUP PO SCH (08:43)
[2024-06-01] MEDS: VALPROIC ACID ORAL SOLN 250 MG/5 ML CUP PO SCH (08:44)
[2024-06-01] MEDS: PANTOPRAZOLE 40 MG/10 ML VIAL IV SCH (08:56)
[2024-06-01 11:27] LABS: HCT 36.1 % (39.6-50.0); HGB 11.6 g/dL (13.0-17.0); MCH 30.4 pg (27.0-32.0); MCHC 32.1 g/dL (32.0-37.0); MCV 94.5 FL (80.0-97.0); Mean Platelet Volume 12.2 FL (9.5-12.2); NRBC Per 100 WBC 0 X 10*3/uL (0.00-0.01); Platelet Count 224 X 10*3/uL (140-440); RBC 3.82 X 10*6/uL (4.40-5.60); RDW 14.3 % (11.5-14.5); WBC 12.41 X 10*3/uL (4.50-10.00)
[2024-06-01 12:26] LABS: Basophils # (A) 0.03 X 10*3/uL (0.00-0.10); Basophils % (A) 0.2 %; Eosinophils # (A) 0.01 X 10*3/uL (0.04-0.35); Eosinophils % (A) 0.1 %; Lymphocytes # (A) 0.51 X 10*3/uL (0.90-5.00); Lymphocytes % (A) 4.1 %; Monocytes % (A) 6.4 %; Neutrophils # (A) 10.98 X 10*3/uL (1.80-7.70); Neutrophils % (A) 88.6 %
[2024-06-01 12:53] LABS: ALT 29 U/L (10-49); AST 33 U/L (14-35); Albumin 2.3 g/dL (3.8-4.9); Albumin/Globulin Ratio 1.15 Ratio (1.60-3.17); Alkaline Phosphatase 65 U/L (41-126); Calcium 8.3 mg/dL (8.7-10.3); Carbon Dioxide 27.2 mmol/L (21.6-31.8); Chloride 110 mmol/L (96-109); Glucose 79 mg/dL (70-110); Magnesium 1.9 mg/dL (1.5-2.4); Phosphorus 2.5 mg/dL (2.4-5.1); Potassium 3.7 mmol/L (3.5-5.5); Sodium 147 mmol/L (135-145); Total Bilirubin 0.4 mg/dL (0.3-1.2); Total Protein 4.3 g/dL (6.2-8.2)
[2024-06-01] MEDS: VANCOMYCIN 1,250 MG in SODIUM CHLORIDE 0.9% 250 ML IVPB SCH (12:58)
[2024-06-01] MEDS: SODIUM CHLORIDE 0.45% 1,000 ML IV SCH (15:31)
--- NOTE | 2024-06-01 15:31 | P.CNNES ---
History of Present Illness Consult date: 06/01/24 Reason for Consult: Altered mental status History of Present Illness: The patient is a 58-year-old male who was seen in neurologic consultation on June 01, 2024, in collaboration with Chas Beyer, via teleneurology. History is obtained from the patient's who is present at the bedside at the time of the evaluation. She reports that her has been having difficulty with his memory and thinking for a few years now. He has seen a neurologist and has had testing done. He has been given a preliminary diagnosis of Alzheimer's type dementia. In April 2024, the patient developed a COVID-19 infection. This occurred around Taylor time. At that time, the patient's mental status declined significantly. More recently, the patient has a wound infection which has continued to get worse, despite antibiotic treatment. Again, the patient's mental status has worsened with the worsening infection. Patient's reports that she is unable to care for him at home. Prior to the infections, the patient was able to walk and talk. He reportedly was quite agitated, running up and down stairs. He had been given a prescription for a Haldol as well as valproic acid, for agitation. Patient was able to have a conversation. His reports that he was talking nonstop. The patient was reportedly seen by psychiatry who felt that the patient did not have Alzheimer's type dementia but had mental status changes secondary to history of toxin exposure (paints). More recently, the patient is unable to walk. He is not eating. He is unable to care for himself/his ADLs. CT scan of the brain performed in the emergency department did not reveal any signs of acute hemorrhage or infarct. In my review of these images, I agree that there is no evidence of acute hemorrhage or infarct. There is however a significant degree of cerebral atrophy, out of proportion to the patient's age. Past Medical History Past Medical History: Dementia Additional Past Medical History / Comment(s): Alzheimers History of Any Multi-Drug Resistant Organisms: Unobtainable Additional Past Surgical History / Comment(s): eye surgery metal flake removed from eye in past Past Psychological History: Unable to Obtain Smoking Status: Unknown if ever smoked Past Alcohol Use History: Unable to Obtain Past Drug Use History: Unable to Obtain Medications and Allergies Home Medications Medication Instructions Recorded Confirmed Type FLUoxetine HCL [Sarafem] 60 mg PO MOTUWETHFR 05/31/24 05/31/24 History Haloperidol Oral Soln [Haldol Oral 2 mg PO DAILY 05/31/24 05/31/24 History Soln] Valproic Acid Oral Soln [Depakene 500 mg PO BID 05/31/24 05/31/24 History Syrup] cefTRIAXone [Rocephin] 1 gm IM DAILY 05/31/24 05/31/24 History Allergies Allergy/AdvReac Type Severity Reaction Status Date / Time No Known Allergies Allergy Verified 05/31/24 19:05 Physical Examination - Vital Signs Vital Signs: Vital Signs Temp Pulse Pulse Resp BP BP Pulse Ox 06/01/24 07:21 98.1 F 91 20 96/60 99 06/01/24 02:00 98.7 F 86 16 115/69 93 L 05/31/24 23:07 99.2 F 65 107/68 97 05/31/24 20:47 98.4 F 89 16 103/63 97 05/31/24 19:04 89 16 121/84 99 05/31/24 17:18 74 18 111/63 97 05/31/24 16:19 97.6 F 72 18 95/82 100 Intake and Output 05/31/24 06/01/24 06/01/24 22:59 06:59 14:59 Output Total 300 Balance -300 Output: Urine 300 Other: # Voids 1 Weight 65.771 kg General: Patient is reclining in the bed. He is well-nourished, well-developed and in no acute distress. HEENT: Head is atraumatic, normocephalic. Fundus not visualized. There is no scleral icterus. Mucous membranes are moist. Neck: Supple without carotid bruits. Heart: Regular rate and rhythm Lungs: Clear to auscultation Extremities: Without edema Neurological examination Mental status: Patient is awake and alert. His speech is nonsensical. He is unable to follow any commands. He is unable to state his 's name. He is unable to name objects. Cranial nerves: Pupils are equal at 2 mm and reactive. Visual jarrell are full to confrontation. Extraocular movements grossly intact. There is no nystagmus. There is no obvious facial asymmetry. Hearing is grossly intact. The patient is unable to cooperate with further cranial nerve testing. Motor: Formal strength testing cannot be carried out. The patient is moving all 4 extremities. Sensation: Intact to noxious stimulation. Coordination: Unable to be carried out at this time. Deep tendon reflexes: Unable to be carried out at this time. Plantar responses are equivocal. Gait: Not assessed Results - Laboratory Findings CBC and BMP: 06/01/24 05:18 06/01/24 05:18 Abnormal Lab Findings: Abnormal Labs 05/31/24 05/31/24 05/31/24 16:34 16:34 16:34 WBC 13.1 H RBC 4.24 L Neutrophils # 12.0 H Lymphocytes # 0.4 L Carbon Dioxide 34 H BUN 28 H Creatinine 0.58 L Total Protein 5.0 L Albumin 2.4 L Urine Protein 1+ H Urine Blood Small H Urine Mucus Moderate H U Benzodiazepines Scrn Detected H Assessment and Plan Assessment: 1. Delirium secondary to wound infection, COVID-19 infection, in the setting of baseline dementia 2. Dementia of uncertain etiology 3. Wound infection with elevated white blood cell count Plan: 1. Primary team treatment of wound infection 2. Consider psychiatry evaluation 3. Consider placement 4. Hold sedative/benzodiazepines Thank you for allowing us to participate in the care of this patient Dr. Reed will assume neurologic coverage of this patient as of June 02, 2024 Time with Patient: Greater than 30 (60 minutes were spent caring for this patient today including, obtaining a history, examining the patient, reviewing imaging, chart documentation, labs and creating this note)
--- NOTE | 2024-06-01 16:50 | P.CON ---
Consult Note - . Consult date: 06/01/24 Assessment/Plan:: This is a 58-year-old male evaluated for sacral decubitus ulcer. Patient has underlying significant dementia unable to provide accurate history but per staffing at facility patient's mental health is significantly deteriorated, changed change in mental capacity and responsiveness. Patient is unable to give any history here in the emergency department Review of Systems ROS Statement: Those systems with pertinent positive or pertinent negative responses have been documented in the HPI. ROS Other: All systems not noted in ROS Statement are negative. Past Medical History Past Medical History: Dementia Additional Past Medical History / Comment(s): Alzheimers General Exam Limitations: altered mental status, physical limitation General appearance: alert, in no apparent distress Head exam: Present: atraumatic, normocephalic, normal inspection Eye exam: Present: normal appearance, PERRL, EOMI. Absent: scleral icterus, conjunctival injection, periorbital swelling ENT exam: Present: normal exam, mucous membranes moist Neck exam: Present: normal inspection. Absent: tenderness, meningismus, lymphadenopathy Respiratory exam: Present: normal lung sounds bilaterally. Absent: respiratory distress, wheezes, rales, rhonchi, stridor Cardiovascular Exam: Present: regular rate, normal rhythm, normal heart sounds. Absent: systolic murmur, diastolic murmur, rubs, gallop, clicks GI/Abdominal exam: Present: soft, normal bowel sounds. Absent: distended, tenderness, guarding, rebound, rigid Extremities exam: Present: normal inspection, full ROM, normal capillary refill. Absent: tenderness, pedal edema, joint swelling, calf tenderness Back exam: Present: normal inspection Neurological exam: Present: alert, oriented X3, CN II-XII intact Psychiatric exam: Present: normal affect, normal mood Skin exam: Present: warm, dry, intact, normal color. Absent: rash 58 year old male with Stage IV Sacral Decubitus Ulcer -Will plan for debridement in operating room tomorrow -NPO/midnight Barry Red DO [facility] [phone]
[2024-06-01] MEDS: AMPICILLIN-SULBACTAM 3 GM in SODIUM CHLORIDE 0.9% 100 ML IVPB SCH (17:40)
--- NOTE | 2024-06-01 20:57 | P.CONS ---
History of Present Illness - Reason for Consult Consult date: 06/01/24 Necrotic intergluteal ulcer Requesting physician: Kaushal Guo - Chief Complaint Mental status changes x days - History of Present Illness Patient is a 58-year-old male with a past medical history significant for dementia COVID-19 patient has been brought into the hospital for evaluation of mental status changes as the patient noted to have been more confused delirious seem to have been bedbound and has developed pressure ulcer on sacral area that the pain has been getting worst for more than a month now patient has been complaining of more pain to the sacral area but unable to quantify it any further and did have some foul-smelling but denies any fever patient on presentation to the hospital was afebrile did have 1 low-grade fever of 99.2 last night patient was not tachycardic hypotensive or hypoxic he did have white count 13.1 with a left shift BUN and creatinine has been normal liver isms are normal urine has been negative urine testing was positive for benzo local cultures were obtained did have a chest x-ray that was reported negative for acute pulmonary disease process patient was started on vancomycin and Zosyn has been admitted to hospital infectious disease was consulted for further management of antibiotic therapy most information has been obtained from review the chart talking to nursing staff the patient cannot provide medical history Review of Systems Positive points has been mentioned in HPI complete review could not be obtained because of his underlying mental status Past Medical History Past Medical History: Dementia Additional Past Medical History / Comment(s): Alzheimers History of Any Multi-Drug Resistant Organisms: Unobtainable Additional Past Surgical History / Comment(s): eye surgery metal flake removed from eye in past Past Psychological History: Unable to Obtain Smoking Status: Unknown if ever smoked Past Alcohol Use History: Unable to Obtain Past Drug Use History: Unable to Obtain Medications and Allergies Home Medications Medication Instructions Recorded Confirmed Type FLUoxetine HCL [Sarafem] 60 mg PO MOTUWETHFR 05/31/24 05/31/24 History Haloperidol Oral Soln [Haldol Oral 2 mg PO DAILY 05/31/24 05/31/24 History Soln] Valproic Acid Oral Soln [Depakene 500 mg PO BID 05/31/24 05/31/24 History Syrup] cefTRIAXone [Rocephin] 1 gm IM DAILY 05/31/24 05/31/24 History Allergies Allergy/AdvReac Type Severity Reaction Status Date / Time No Known Allergies Allergy Verified 05/31/24 19:05 Physical Exam Vitals: Vital Signs Temp Pulse Pulse Resp BP BP Pulse Ox 06/01/24 07:21 98.1 F 91 20 96/60 99 06/01/24 02:00 98.7 F 86 16 115/69 93 L 05/31/24 23:07 99.2 F 65 107/68 97 05/31/24 20:47 98.4 F 89 16 103/63 97 05/31/24 19:04 89 16 121/84 99 05/31/24 17:18 74 18 111/63 97 05/31/24 16:19 97.6 F 72 18 95/82 100 Intake and Output 05/31/24 06/01/24 06/01/24 22:59 06:59 14:59 Output Total 300 Balance -300 Output: Urine 300 Other: # Voids 1 Weight 65.771 kg GENERAL DESCRIPTION: Middle-age male lying in bed, no distress. No tachypnea or accessory muscle of respiration use. HEENT: Shows Pallor , no scleral icterus. Oral mucous membrane is dry. NECK: Trachea central, no thyromegaly. LUNGS: Unlabored breathing. Clear to auscultation anteriorly. No wheeze or crac kle. HEART: S1, S2, regular rate and rhythm. No loud murmur ABDOMEN: Soft, no tenderness , guarding or rigidity, no organomegaly EXTREMITIES: No edema of feet. SKIN: Patient did have a unstageable sacral pressure ulcer with fluctuance some foul-smelling NEUROLOGICAL: The patient is awake, but Pleasantly confused orientation could not be determined Results CBC & Chem 7: 06/01/24 05:18 06/02/24 10:44 Labs: Abnormal Lab Results - Last 24 Hours (Table) 05/31/24 05/31/24 05/31/24 Range/Units 16:34 16:34 16:34 WBC 13.1 H (3.8-10.6) k/uL RBC 4.24 L (4.30-5.90) m/uL Hgb (13.0-17.0) g/dL Hct (39.6-50.0) % Neutrophils # 12.0 H (1.3-7.7) k/uL Lymphocytes # 0.4 L (1.0-4.8) k/uL Carbon Dioxide 34 H (22-30) mmol/L BUN 28 H (9-20) mg/dL Creatinine 0.58 L (0.66-1.25) mg/dL Total Protein 5.0 L (6.3-8.2) g/dL Albumin 2.4 L (3.5-5.0) g/dL Urine Protein 1+ H (Negative) Urine Blood Small H (Negative) Urine Mucus Moderate H (None) /hpf U Benzodiazepines Scrn Detected H (NotDetected) 06/01/24 Range/Units 05:18 WBC 12.41 H (3.8-10.6) k/uL RBC 3.82 L (4.30-5.90) m/uL Hgb 11.6 L (13.0-17.0) g/dL Hct 36.1 L (39.6-50.0) % Neutrophils # (1.3-7.7) k/uL Lymphocytes # (1.0-4.8) k/uL Carbon Dioxide (22-30) mmol/L BUN (9-20) mg/dL Creatinine (0.66-1.25) mg/dL Total Protein (6.3-8.2) g/dL Albumin (3.5-5.0) g/dL Urine Protein (Negative) Urine Blood (Negative) Urine Mucus (None) /hpf U Benzodiazepines Scrn (NotDetected) Assessment and Plan (1) Unstageable pressure ulcer of sacral region Current Visit: Yes Status: Acute Code(s): L89.150 - PRESSURE ULCER OF SACRAL REGION, UNSTAGEABLE SNOMED Code(s): 80712881083089957 (2) Leukocytosis Current Visit: Yes Status: Acute Code(s): D72.829 - ELEVATED WHITE BLOOD CELL COUNT, UNSPECIFIED SNOMED Code(s): 632183813 Plan: 1patient with unstageable sacral pressure ulcer with concern for fluctuation possible abscess will need to cover for polymicrobial riaz associated with such infection including gram-positive as well as gram-negative 2leukocytosis likely related to the infected sacral pressure ulcer 3patient benefit from surgical debridement and deep culture for the general surgery should be consulted 4continue with vancomycin pharmacy to dose however switch Zosyn to Unasyn decrease risk of nephrotoxicity We will follow on clinical condition and cultures to further adjust medication i f needed Thank you for this consultation we will follow the patient along with you Dictation was produced using [employer] dictation software. please excuse any grammatical, word or spelling errors. Time with Patient: Greater than 30
[2024-06-02] MEDS: FLUoxetine HCL 20 MG CAP PO SCH (10:19)
[2024-06-02 11:20] LABS: African American GFR (CKD) >90 (>60 ml/min/1.73 sqM); Non-African American GFR(CKD) >90 (>60 ml/min/1.73 sqM)
[2024-06-02 11:21] LABS: African American GFR (CKD) >90 (>60 ml/min/1.73 sqM); Anion Gap 5 mmol/L; Blood Urea Nitrogen 17 mg/dL (9-20); Calcium 8.1 mg/dL (8.4-10.2); Carbon Dioxide 28 mmol/L (22-30); Chloride 110 mmol/L (98-107); Glucose 85 mg/dL (74-99); Non-African American GFR(CKD) >90 (>60 ml/min/1.73 sqM); Potassium 3.3 mmol/L (3.5-5.1); Sodium 143 mmol/L (137-145)
--- NOTE | 2024-06-02 11:57 | P.PN ---
Subjective Progress Note Date: 06/02/24 Principal diagnosis: Reason for follow-up is infected sacral pressure ulcer Patient is a 58-year-old male with a past medical history significant for dementia COVID-19 patient has been brought into the hospital for evaluation of mental status changes as the patient noted to have been more confused delirious and also noticed to have worsening of the wound to the sacral area probably this consultation. On today's evaluation that is 06/02/2023, patient has been afebrile, patient is breathing comfortably and is currently on room air, patient remains to be pleasantly confused not a very good historian no vomiting diarrhea and the changes reported by the nursing staff. Patient did have a creatinine 0.5 point CBC is pending from today culture from the back is currently growing yeast and gram-negative bacilli Objective - Vital Signs Vital signs: Vital Signs Temp 98.2 F 06/02/24 07:39 Pulse 64 06/02/24 07:39 Resp 16 06/02/24 07:39 BP 102/59 06/02/24 07:39 Pulse Ox 93 L 06/02/24 07:39 FiO2 Intake & Output 06/01/24 06/02/24 06/02/24 18:59 06:59 18:59 Output Total 250 Balance -250 Output: Urine 250 Other: Voiding Method External Catheter Incontinent External Catheter # Voids 5 2 - Exam GENERAL DESCRIPTION: Middle-age male lying in bed in no distress RESPIRATORY SYSTEM: Unlabored breathing , decreased breath sounds at bases HEART: S1 S2 regular rate and rhythm , ABDOMEN: Soft , no tenderness, sacral wound is currently dressed EXTREMITIES: No edema feet - Labs CBC & Chem 7: 06/01/24 05:18 06/02/24 10:44 Labs: Abnormal Lab Results - Last 24 Hours (Table) 06/01/24 06/01/24 06/02/24 Range/Units 05:18 05:18 10:44 Immature Gran # 0.08 H (0.00-0.04) X 10*3/uL Neutrophils # 10.98 H (1.80-7.70) X 10*3/uL Lymphocytes # 0.51 L (0.90-5.00) X 10*3/uL Eosinophils # 0.01 L (0.04-0.35) X 10*3/uL Sodium 147 H (135-145) mmol/L Potassium (3.5-5.1) mmol/L Chloride 110 H (96-109) mmol/L Creatinine 0.5 L 0.51 L (0.6-1.5) mg/dL BUN/Creatinine Ratio 42.00 H (12.00-20.00) Ratio Calcium 8.3 L (8.7-10.3) mg/dL Total Protein 4.3 L (6.2-8.2) g/dL Albumin 2.3 L (3.8-4.9) g/dL Albumin/Globulin Ratio 1.15 L (1.60-3.17) Ratio 06/02/24 Range/Units 10:44 Immature Gran # (0.00-0.04) X 10*3/uL Neutrophils # (1.80-7.70) X 10*3/uL Lymphocytes # (0.90-5.00) X 10*3/uL Eosinophils # (0.04-0.35) X 10*3/uL Sodium (135-145) mmol/L Potassium 3.3 L (3.5-5.1) mmol/L Chloride 110 H (96-109) mmol/L Creatinine 0.51 L (0.6-1.5) mg/dL BUN/Creatinine Ratio (12.00-20.00) Ratio Calcium 8.1 L (8.7-10.3) mg/dL Total Protein (6.2-8.2) g/dL Albumin (3.8-4.9) g/dL Albumin/Globulin Ratio (1.60-3.17) Ratio Microbiology - Last 24 Hours (Table) 06/01/24 03:20 Gram Stain - Preliminary Buttock Wound Culture - Preliminary Yeast species Gram Neg Bacilli Assessment and Plan (1) Unstageable pressure ulcer of sacral region Current Visit: Yes Status: Acute Code(s): L89.150 - PRESSURE ULCER OF SACRAL REGION, UNSTAGEABLE SNOMED Code(s): 07515114089888275 (2) Leukocytosis Current Visit: Yes Status: Acute Code(s): D72.829 - ELEVATED WHITE BLOOD CELL COUNT, UNSPECIFIED SNOMED Code(s): 650146842 Plan: 1patient with unstageable sacral pressure ulcer with concern for fluctuation possible abscess will need to cover for polymicrobial riaz associated with such infection including gram-positive as well as gram-negative 2leukocytosis likely related to the infected sacral pressure ulcer 3patient has been eval by general surgery currently waiting for surgical debridement and deep culture discussed again with the nursing staff 4patient to continue with vancomycin pharmacy to dose along with Unasyn while waiting for deep OR culture to be finalized Dictation was produced using [email or web address] dictation software. please excuse any grammatical, word or spelling errors. Time with Patient: Less than 30
[2024-06-02] MEDS: VANCOMYCIN TROUGH DUE 1 EACH MISC MISCELLANE ONE (12:20)
[2024-06-02] MEDS: IV FLUID CONTINUATION 1,000 ML IV ONE (13:13)
[2024-06-02] MEDS: LACTATED RINGERS 1,000 ML BAG IV STA (13:17)
[2024-06-02] MEDS: ONDANSETRON 4 MG/2 ML VIAL IVP PRN (13:17)
[2024-06-02] MEDS: DEXAMETHASONE SOD PHOSPHATE 4 MG/ML 1 ML VIAL IVP STA (13:18)
--- NOTE | 2024-06-02 14:11 | P.PN ---
Subjective Progress Note Date: 06/02/24 58-year-old male with PMH of dementia, possible Alzheimer's disease, is brought to the emergency department via EMS with concerns regarding altered mental status. Patient is unable to provide any meaningful history at this time. History is obtained from patient's Nirmala via telephone call. 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 She also noticed mild redness and tenderness on his buttock crease a month ago after he has been struggling to sit because of pain. In the ED he underwent extensive evaluation. BP 95/82, HR 72, T 97.6F, RR 18, 100% on RA. CBC, Coag panel, CMP significant for WBC 13.1, RBC 4.24, bicarb 34, BUN 28, Cr 0.58, alb 2.4. Trop < 0.012, EKG NSR. Ammonia < 9. Mag 2.3. TSH 1.15. B12 745. CXR neg. CT brain neg. Patient is admitted for further workup and management. Start on Vancomycin and Zosyn for necrotic sacral wound, ID consulted and Zosyn switched to Unasyn. Surgery consulted with plans for debridement on 06/02. Neurology consulted for altered mentation, recommending avoiding sedative medications and consideration for Psyc consult. 06/02 Patient was seen and examined. Limited communications. Appears comfortable. BMP significant for K 3.3, Cl 110, Cr 0.51, Ca 8.1. Vanc trough 13.4. WCx growing GNB and yeast. Antibiotics include Vancomycin and Unasyn. Plans for debridement today. General: non toxic, no distress, appears at stated age Derm: warm, dry Head: atraumatic, normocephalic, symmetric Eyes: EOMI, no lid lag, anicteric sclera Mouth: no lip lesion, mucus membranes moist Cardiovascular: S1S2 reg, no murmur Lungs: CTA bilateral, no rhonchi, no rales , no accessory muscle use Ext: no gross muscle atrophy, no edema, no contractures, necrotic sacral wound dressing c/d/i Neuro: no focal neuro deficits Psych: Alert, oriented x 0 Based on my assessment of this patient, this patient meets a high complexity level of care. Acute metabolic encephalopathy likely secondary to dementia: Worsened with infection. Ammonia, B12, TSH, CT brain within normal limits. Fall precautions. Frequent re-direction. Avoid sedative medications. Valproic acid 500 mg PO BID and Haloperidol 2 mg PO QD. Follow folate. Neurology on board. Sacral wound: Continue Vancomycin dosed per pharmacy. Monitor renal function and trough for toxicity. Continue Unasyn 3g IV TID. Follow WCx. Plans for debridement. ID and Surgery on board. Hypokalemia: KCl 40 meq PO x 1. Recheck tomorrow. CODE STATUS: FULL CODE. DVT Prophylaxis: Lovenox SQ GI Prophylaxis: Protonix IV Designated medical POA if patient is not able to make medical decisions for themselves: I have reviewed the following technology methodology consultant notes: Surgery, Neurology, ID. I have reviewed the results of the following tests: BMP, Vanc trough, WCx. I have ordered the following tests: BMP, Vanc trough in the AM. I have discussed the care of this patient with the following independent historian: I have independently interpreted the following test below: I have discussed the management of this patient with the following physician: Objective - Vital Signs Vital signs: Vital Signs Temp 98.2 F 06/02/24 07:39 Pulse 64 06/02/24 07:39 Resp 16 06/02/24 07:39 BP 102/59 06/02/24 07:39 Pulse Ox 93 L 06/02/24 07:39 FiO2 Intake & Output 06/01/24 06/02/24 06/02/24 18:59 06:59 18:59 Output Total 250 Balance -250 Output: Urine 250 Other: Voiding Method External Catheter Incontinent External Catheter # Voids 5 2 - Labs CBC & Chem 7: 06/01/24 05:18 06/02/24 10:44 Labs: Abnormal Lab Results - Last 24 Hours (Table) 06/01/24 06/01/24 06/02/24 Range/Units 05:18 05:18 10:44 Immature Gran # 0.08 H (0.00-0.04) X 10*3/uL Neutrophils # 10.98 H (1.80-7.70) X 10*3/uL Lymphocytes # 0.51 L (0.90-5.00) X 10*3/uL Eosinophils # 0.01 L (0.04-0.35) X 10*3/uL Sodium 147 H (135-145) mmol/L Potassium (3.5-5.1) mmol/L Chloride 110 H (96-109) mmol/L Creatinine 0.5 L 0.51 L (0.6-1.5) mg/dL BUN/Creatinine Ratio 42.00 H (12.00-20.00) Ratio Calcium 8.3 L (8.7-10.3) mg/dL Total Protein 4.3 L (6.2-8.2) g/dL Albumin 2.3 L (3.8-4.9) g/dL Albumin/Globulin Ratio 1.15 L (1.60-3.17) Ratio 06/02/24 Range/Units 10:44 Immature Gran # (0.00-0.04) X 10*3/uL Neutrophils # (1.80-7.70) X 10*3/uL Lymphocytes # (0.90-5.00) X 10*3/uL Eosinophils # (0.04-0.35) X 10*3/uL Sodium (135-145) mmol/L Potassium 3.3 L (3.5-5.1) mmol/L Chloride 110 H (96-109) mmol/L Creatinine 0.51 L (0.6-1.5) mg/dL BUN/Creatinine Ratio (12.00-20.00) Ratio Calcium 8.1 L (8.7-10.3) mg/dL Total Protein (6.2-8.2) g/dL Albumin (3.8-4.9) g/dL Albumin/Globulin Ratio (1.60-3.17) Ratio Microbiology - Last 24 Hours (Table) 06/01/24 03:20 Gram Stain - Preliminary Buttock Wound Culture - Preliminary Yeast species Gram Neg Bacilli
[2024-06-02] MEDS ORDERED: PROPOFOL 10 MG/ML 20 ML VIAL IV ONE (14:23)
[2024-06-02] MEDS ORDERED: PHENYLEPHRINE-0.9% NACL SYG 1,000 MCG/10 ML SYRINGE ONE (14:23)
[2024-06-02] MEDS ORDERED: fentaNYL (PF) 50 MCG/ML 2 ML AMP ONE (14:23)
[2024-06-02] MEDS: LIDOCAINE 1%-EPI 1:100,000 20 ML VIAL SQ ONE ×2 (14:42→14:43)
[2024-06-02] MEDS: POTASSIUM BICARBONATE/CIT AC 20 MEQ TABLET.EFF PO ONE (16:16)
--- NOTE | 2024-06-02 21:06 | P.OP ---
Date of Procedure: 06/02/24 Preoperative Diagnosis: Infected sacral decubitus ulcer, unstageable Postoperative Diagnosis: Infected stage III decubitus ulcer Procedure(s) Performed: Excisional debridement of sacral decubitus ulcer, measuring 4 x 5 x 3 cm with undermining of 5 cm superiorly and 5 cm inferiorly Anesthesia: MAC Surgeon: Jerica Kiser Pathology: other (Cultures of sacral decubitus ulcer) Condition: stable Disposition: floor Indications for Procedure: 58-year-old male with concern for infected sacral decubitus ulcer. Plan is for surgical debridement and washout of this area with cultures to be obtained. Patient's did provide consent for this procedure after risks, benefits and alternatives were provided. Operative Findings: 4 x 5 x 4 cm sacral decubitus ulcer, stage III with 5 cm of undermining superiorly and inferiorly in the right lower extremity Description of Procedure: Patient was brought to the operating suite and anesthesia did provide sedation. Patient was placed in left lateral cubitus position. Patient was prepped and draped in regular sterile fashion. Excisional debridement was performed with sharp 15 blade scalpel and leathery eschar was removed. Underneath, immediate purulent material was noted and cultures were taken. Sharp excisional debridement was done at all edges of the necrotic tissue until bleeding was noted. The total decubitus ulcer measured 4 x 5 x 4 cm. This is a stage III ulcer up to the deep subcutaneous layer and muscular layer. The undermining was noted superiorly approximately 5 cm and inferiorly towards the right gluteus of approximately 5 cm as well. Copious amounts irrigation was placed in the wound. Packing was placed. Sterile dressing applied. Patient was awakened and taken to postanesthesia care unit in stable condition.
[2024-06-03 04:22] LABS: HCT 34.3 % (39.0-53.0); HGB 11.2 gm/dL (13.0-17.5); MCH 31.1 pg (25.0-35.0); MCHC 32.5 g/dL (31.0-37.0); MCV 95.7 fL (80.0-100.0); Mean Platelet Volume 8.3; Platelet Count 276 k/uL (150-450); RBC 3.58 m/uL (4.30-5.90); RDW 14.1 % (11.5-15.5); WBC 12.2 k/uL (3.8-10.6)
[2024-06-03 04:41] LABS: African American GFR (CKD) >90 (>60 ml/min/1.73 sqM); Anion Gap 2 mmol/L; Blood Urea Nitrogen 18 mg/dL (9-20); Calcium 8.1 mg/dL (8.4-10.2); Carbon Dioxide 30 mmol/L (22-30); Chloride 110 mmol/L (98-107); Glucose 97 mg/dL (74-99); Non-African American GFR(CKD) >90 (>60 ml/min/1.73 sqM); Potassium 3.7 mmol/L (3.5-5.1); Sodium 142 mmol/L (137-145)
[2024-06-03] MEDS: ENOXAPARIN 40 MG/0.4 ML SYRINGE SQ SCH (09:13)
--- NOTE | 2024-06-03 10:08 | P.CONS ---
History of Present Illness - Reason for Consult Consult date: 06/03/24 wound care - History of Present Illness This is a 58-year-old patient being seen on 4 S. for a stage III pressure ulcer. Patient underwent a surgical debridement approximate size of ulceration is 4 x 5 x 3 cm with undermining superior at 5 cm and undermining inferior at 5 cm. Wound edges are not attached to the wound base granulation seen throughout wound bed. Slough and nonviable tissue present. Patient's past medical history significant for dementia Review of systems: Unable to obtain due to mental status Review Of Systems: Constitutional: No fever, no chills, no night sweats. No weight change. No weakness, fatigue or lethargy. No daytime sleepiness. Integumentary:reports wounds, no lesions. No rash or pruritus. No unusual bruising. No change in hair or nails. Assessment: 1. Stage III pressure ulcer of sacrum Plan: 1.Apply absorptive silver rope collagen saline moistened gauze, bordered foam. Change Sunday. Turn patient every 2 hours. Utilize a air- filled cushion while sitting. Patient would benefit from advanced wound care and wound care setting. We would be happy to see him upon discharge. Thank you for the consultation any questions please contact the wound care c enter DNP note has been reviewed and discussed with Dr. Malloy and the impression and plan of care has been directed as dictated. Past Medical History Past Medical History: Dementia Additional Past Medical History / Comment(s): Alzheimers History of Any Multi-Drug Resistant Organisms: Unobtainable Additional Past Surgical History / Comment(s): eye surgery metal flake removed from eye in past Past Psychological History: Unable to Obtain Smoking Status: Unknown if ever smoked Past Alcohol Use History: Unable to Obtain Past Drug Use History: Unable to Obtain Medications and Allergies Home Medications Medication Instructions Recorded Confirmed Type FLUoxetine HCL [Sarafem] 60 mg PO MOTUWETHFR 05/31/24 05/31/24 History Haloperidol Oral Soln [Haldol Oral 2 mg PO DAILY 05/31/24 05/31/24 History Soln] Valproic Acid Oral Soln [Depakene 500 mg PO BID 05/31/24 05/31/24 History Syrup] cefTRIAXone [Rocephin] 1 gm IM DAILY 05/31/24 05/31/24 History Allergies Allergy/AdvReac Type Severity Reaction Status Date / Time No Known Allergies Allergy Verified 06/02/24 13:01 Physical Exam Vitals: Vital Signs Temp Pulse Pulse Resp BP BP Pulse Ox 06/03/24 07:20 98.3 F 63 17 102/60 95 06/03/24 02:00 98 F 63 14 112/66 93 L 06/02/24 20:07 98.9 F 70 18 102/63 93 L 06/02/24 16:29 98.1 F 60 16 114/75 98 06/02/24 15:52 75 17 107/70 95 06/02/24 15:37 74 16 104/70 94 L 06/02/24 15:22 79 16 124/68 97 06/02/24 15:07 98.9 F 84 16 99/67 94 L 06/02/24 13:05 98.0 F 75 18 102/59 96 Intake and Output 06/02/24 06/03/24 06/03/24 22:59 06:59 14:59 Intake Total 100 Output Total 300 350 Balance -200 -350 Intake: IV 100 Output: Urine 300 350 Other: Voiding Method Incontinent External Catheter Weight 65.771 kg Results CBC & Chem 7: 06/03/24 03:50 06/03/24 03:50 Labs: Abnormal Lab Results - Last 24 Hours (Table) 06/02/24 06/02/24 06/03/24 Range/Units 10:44 10:44 03:50 WBC 12.2 H (3.8-10.6) k/uL RBC 3.58 L (4.30-5.90) m/uL Hgb 11.2 L (13.0-17.5) gm/dL Hct 34.3 L (39.0-53.0) % Potassium 3.3 L (3.5-5.1) mmol/L Chloride 110 H (98-107) mmol/L Creatinine 0.51 L 0.51 L (0.66-1.25) mg/dL Calcium 8.1 L (8.4-10.2) mg/dL 06/03/24 Range/Units 03:50 WBC (3.8-10.6) k/uL RBC (4.30-5.90) m/uL Hgb (13.0-17.5) gm/dL Hct (39.0-53.0) % Potassium (3.5-5.1) mmol/L Chloride 110 H (98-107) mmol/L Creatinine 0.52 L (0.66-1.25) mg/dL Calcium 8.1 L (8.4-10.2) mg/dL Microbiology - Last 24 Hours (Table) 06/01/24 03:20 Gram Stain - Final Buttock Wound Culture - Final Jeni albicans Escherichia coli ESBL 06/02/24 15:00 Gram Stain - Preliminary Other - Other 06/01/24 05:18 Blood Culture - Preliminary Blood Assessment and Plan (1) Stage III pressure ulcer of sacral region Current Visit: Yes Status: Acute Code(s): L89.153 - PRESSURE ULCER OF SACRAL REGION, STAGE 3 SNOMED Code(s): 41801834118178
--- NOTE | 2024-06-03 10:47 | P.PN ---
Subjective Progress Note Date: 06/02/24 Patient was initially seen by Dr. Carvajal. Please refer to her note for details. Patient is a 58-year-old male admitted with delirium with a pre-existing history of dementia. Patient has recent history of COVID-19 infection. Now has wound infection. Head CT showed severe atrophy. I personally reviewed CT head, agree with the findings. Patient's has mentioned that patient has memory difficulties going on for a few years now. He has seen neurologist and diagnosis of Alzheimer's type dementia has been made. In April 2024, patient developed a COVID infection. This occurred around [place] time. After that patient's mentation declined significantly. At present patient has a wound infection which has continued to get worse despite antibiotic treatment. His mentation has worsened with worsening infection. Patient's reports that she is unable to care for him at home. Prior to infection the patient was able to walk and talk. He reportedly was quite agitated, running up and down stairs. He has been given prescription of Haldol and valproic acid for agitation. His mentioned that he was talking nonstop. The psychiatrist has seen the patient, who believes patient does not have Alzheimer's type dementia but has mental status change secondary to history of toxin exposure (paints). More recently, patient is unable to walk, not eating. Patient appears to have significant dementia, very confused as per examination below. Objective - Vital Signs Vital signs: Vital Signs Temp 98.1 F 06/02/24 16:29 Pulse 60 06/02/24 16:29 Resp 16 06/02/24 16:29 BP 114/75 06/02/24 16:29 Pulse Ox 98 06/02/24 16:29 FiO2 Intake & Output 06/01/24 06/02/24 06/02/24 18:59 06:59 18:59 Intake Total 400 Output Total 250 20 Balance -250 380 Weight 65.771 kg Intake: IV 400 Output: Urine 250 Estimated Blood Loss 20 Other: Voiding Method External Catheter Incontinent External Catheter # Voids 5 2 - Exam Patient is alert and awake, but has a very vacant look. Patient could not tell me his name, could not tell me the current month or the year. He is oriented x 0. Patient has positive palmomental reflex. He has positive snout reflex. 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 Sometimes he moans with pain. He mumbles. Examination was very limited because of his mentation. - Labs CBC & Chem 7: 06/03/24 03:50 06/03/24 03:50 Labs: Abnormal Lab Results - Last 24 Hours (Table) 06/02/24 06/02/24 Range/Units 10:44 10:44 Potassium 3.3 L (3.5-5.1) mmol/L Chloride 110 H (98-107) mmol/L Creatinine 0.51 L 0.51 L (0.66-1.25) mg/dL Calcium 8.1 L (8.4-10.2) mg/dL Microbiology - Last 24 Hours (Table) 06/01/24 05:18 Blood Culture - Preliminary Blood 06/01/24 03:20 Gram Stain - Preliminary Buttock Wound Culture - Preliminary Yeast species Gram Neg Bacilli Assessment and Plan Assessment: 1. Delirium secondary to wound infection, COVID-19 infection, in the setting of baseline dementia 2. Dementia of uncertain etiology, appears advanced. 3. Wound infection with elevated white blood cell count Plan: 1. Primary team treatment of wound infection and other medical management. 2. Consider psychiatry evaluation 3. Consider placement 4. Hold sedative/benzodiazepines 5. Check EEG. May consider MRI brain if not done in the past. 6. B12 745, RBC folate 599 which is normal. TSH normal 1.15. We will check RPR.
[2024-06-03 11:08] VITALS: BMI 18.6
--- NOTE | 2024-06-03 11:39 | P.PN ---
Subjective Progress Note Date: 06/03/24 Hospital course: Patient is a very pleasant 58-year-old male with a past medical history of dementia. He presented to the emergency department 05/31/2023 secondary to concerns of worsening altered mental status status post COVID-19 infection April 2024. Upon arrival to our facility, patient underwent evaluation in the emergency department. Vital signs upon arrival show blood pressure 95/82, heart rate 72, respiratory rate 18, temp 97.6 F, and SpO2 100% on room air. EKG completed showing normal sinus rhythm at 80 bpm with nonspecific T wave abnormalities. CT brain negative for acute intracranial process showing nonspecific white matter changes likely secondary to chronic small vessel ischemic disease. Chest x-ray negative for acute cardiopulmonary process. Labs completed and reviewed. CBC showing leukocytosis with WBC count of 13.1. Coagulation profile normal findings. BMP showing hypercarbia with bicarb of 34 and prerenal azotemia with BUN of 28. Blood glucose was 90. Magnesium 2.3. Liver profile unremarkable with the exception of hypoalbuminemia with albumin of 2.4. Troponin was negative at less than 0.012. Urinalysis negative for infection. Urine drug screen positive for benzodiazepines otherwise negative. Valproic acid subtherapeutic at 18.1. Patient was found to have a large sacral decubitus ulcer present on arrival. He was admitted under our services with consultation to neurology and general surgery. On 06/02/2024 patient underwent excisional debridement of sacral decubitus ulcer. Patient started on broad-spe ctrum antibiotics and infectious disease was consulted for management. Physical exam: Vital signs reviewed and stable. General: Nontoxic, no distress and appears stated age. Derm: Skin warm and dry, normal coloration for ethnicity. Patient with dressing to sacrum status postdebridement of ulcer on 06/02/2024. Head: Atraumatic, normocephalic and symmetric. Eyes: EOM's intact, no lid lag, and anicteric sclera Mouth: no lip lesions, mucus membranes moist Cardiovascular: regular rate and rhythm with normal S1S2, no murmur, positive posterior tibial pulses bilaterally, and cap refill < 2 seconds. Lungs: Respirations even, regular, and unlabored on room air. Lungs CTA bilaterally, no rhonchi, no rales, no wheezing, and no accessory muscle usage. Abdominal: soft, nontender to palpation, no guarding, no appreciable organomegaly Ext: ROM intact. No gross muscle atrophy, no edema, no contractures Neuro: Speech clear, face symmetrical and CN II-XII grossly intact with no noted focal neuro deficits. GCS 14. Patient with mild resting tremors in upper extremities and face. Psych: Alert and oriented to person only and confused to place, time, and situation. Patient following limited commands. Assessment and Plan of Care: Acute metabolic encephalopathy, unclear cause possibly secondary to infected sacral ulcer resulting in delirium and underlying dementia Large decubitus sacral ulcer Dementia -Neurology following, reviewed documentation in chart. -Neurochecks every 4 hours and maintain fall precautions -Continue Prozac 60 mg daily, Haldol 2 mg daily, and valproic acid 500 mg twice daily. -Follow-up on EEG. -Consult Physical and Occupational Therapy. -Continue IV antibiotics with Invanz 1 g daily and vancomycin 1250 mg IVPB every 8 hours. Close monitoring of renal function and vancomycin trough for any signs of vancomycin associated renal toxicity. -Follow-up on Gram stain and blood culture results. Initial wound culture positive for Jeni albicans and ESBL E. coli. -Infectious disease following. Discontinued Unasyn and started patient on Invanz 1 g daily. -DVT prophylaxis with Lovenox. Data and imaging reviewed: Wound culture positive for Jeni albicans and ESBL E. coli. Morning labs reviewed. CBC showing leukocytosis with WBC count of 12.2 and normocytic anemia with hemoglobin of 11.2. BMP showing hyperchloremia with chloride of 110 otherwise normal findings. Blood glucose 97. Vital signs reviewed. Blood pressure 102/60, heart rate 63, respiratory rate 17, temp 98.3 F, and SpO2 of 95% on room air. CODE STATUS: Full code DVT prophylaxis: Lovenox Anticipated discharge date: Pending clinical course Anticipated discharge place: Pending clinical course Patient was seen independently by Nurse Pracitioner. This document was prepared using [employer] dictation software. Please allow for errors in weaving loom operator, while rare they do occur. Gabriel Gannon NP rendered care for this patient independently, reviewed the findings and plan as documented in the note above and agree with plan. I did not physically speak with or examine the patient on this date. Objective - Vital Signs Vital signs: Vital Signs Temp 98.3 F 06/03/24 07:20 Pulse 63 06/03/24 07:20 Resp 17 06/03/24 07:20 BP 102/60 06/03/24 07:20 Pulse Ox 95 06/03/24 07:20 FiO2 Intake & Output 06/02/24 06/03/24 06/03/24 18:59 06:59 18:59 Intake Total 400 Output Total 320 350 Balance 80 -350 Weight 65.771 kg Intake: IV 400 Output: Urine 300 350 Estimated Blood Loss 20 Other: Voiding Method Incontinent Incontinent External Catheter External Catheter - Labs CBC & Chem 7: 06/03/24 03:50 06/03/24 03:50 Labs: Abnormal Lab Results - Last 24 Hours (Table) 06/02/24 06/02/24 06/03/24 Range/Units 10:44 10:44 03:50 WBC 12.2 H (3.8-10.6) k/uL RBC 3.58 L (4.30-5.90) m/uL Hgb 11.2 L (13.0-17.5) gm/dL Hct 34.3 L (39.0-53.0) % Potassium 3.3 L (3.5-5.1) mmol/L Chloride 110 H (98-107) mmol/L Creatinine 0.51 L 0.51 L (0.66-1.25) mg/dL Calcium 8.1 L (8.4-10.2) mg/dL 06/03/24 Range/Units 03:50 WBC (3.8-10.6) k/uL RBC (4.30-5.90) m/uL Hgb (13.0-17.5) gm/dL Hct (39.0-53.0) % Potassium (3.5-5.1) mmol/L Chloride 110 H (98-107) mmol/L Creatinine 0.52 L (0.66-1.25) mg/dL Calcium 8.1 L (8.4-10.2) mg/dL Microbiology - Last 24 Hours (Table) 06/02/24 15:00 Gram Stain - Preliminary Other - Other 06/01/24 05:18 Blood Culture - Preliminary Blood 06/01/24 03:20 Gram Stain - Preliminary Buttock Wound Culture - Preliminary Yeast species Gram Neg Bacilli
--- NOTE | 2024-06-03 14:13 | P.PN ---
Subjective Progress Note Date: 06/03/24 SURGICAL PROGRESS NOTE CHIEF COMPLAINT: Sacral decubitus ulcer HISTORY OF PRESENT ILLNESS: Patient is postop day #1 status post excisional debridement of sacral decubitus ulcer. Patient lying in bed comfortably. No new complaints. Afebrile. Cultures pending. WBC 12.2 PHYSICAL EXAM: VITAL SIGNS: Reviewed. GENERAL: Well-developed in no acute distress. HEENT: No sclera icterus. Extraocular movements grossly intact. Moist buccal mucosa. Head is atraumatic, normocephalic. ABDOMEN: Soft. Nondistended. Nontender. NEUROLOGIC: Alert and oriented. Cranial nerves II through XII grossly intact. ASSESSMENT: 1. Infected stage III decubitus ulcer PLAN: -Continue local wound care -Continue offloading -Antibiotics per infectious disease Physician Bariatric Program Coordinator note has been reviewed by physician. Signing provider agrees with the documented findings, assessment, and plan of care. Objective - Vital Signs Vital signs: Vital Signs Temp 98.3 F 06/03/24 07:20 Pulse 63 06/03/24 07:20 Resp 17 06/03/24 07:20 BP 102/60 06/03/24 07:20 Pulse Ox 95 06/03/24 07:20 FiO2 Intake & Output 06/02/24 06/03/24 06/03/24 18:59 06:59 18:59 Intake Total 400 Output Total 320 350 Balance 80 -350 Weight 65.771 kg 65.771 kg Intake: IV 400 Output: Urine 300 350 Estimated Blood Loss 20 Other: Voiding Method Incontinent Incontinent Incontinent External Catheter External Catheter External Catheter - Labs CBC & Chem 7: 06/03/24 03:50 06/03/24 03:50 Labs: Abnormal Lab Results - Last 24 Hours (Table) 06/03/24 06/03/24 Range/Units 03:50 03:50 WBC 12.2 H (3.8-10.6) k/uL RBC 3.58 L (4.30-5.90) m/uL Hgb 11.2 L (13.0-17.5) gm/dL Hct 34.3 L (39.0-53.0) % Chloride 110 H (98-107) mmol/L Creatinine 0.52 L (0.66-1.25) mg/dL Calcium 8.1 L (8.4-10.2) mg/dL Microbiology - Last 24 Hours (Table) 06/01/24 05:18 Blood Culture - Preliminary Blood 06/01/24 03:20 Anaerobic Culture - Preliminary Buttock 06/01/24 03:20 Gram Stain - Final Buttock Wound Culture - Final Jeni albicans Escherichia coli ESBL 06/02/24 15:00 Gram Stain - Preliminary Other - Other
--- NOTE | 2024-06-03 15:45 | P.PN ---
Subjective Progress Note Date: 06/03/24 Principal diagnosis: Reason for follow-up is infected sacral pressure ulcer Patient is a 58-year-old male with a past medical history significant for dementia COVID-19 patient has been brought into the hospital for evaluation of mental status changes as the patient noted to have been more confused delirious and also noticed to have worsening of the wound to the sacral area probably this consultation.Patient is status post excisional debridement of his sacral pressure ulcer extending to the deep subcutaneous layer and muscular layer but not involving the bone On today's evaluation that is 06/03/2024, Patient is afebrile this morning patient remains stable on room air in no respiratory distress evaluated good historian no vomiting diarrhea any changes reported by the nursing staff. Patient white count is 12.2, creatinine 0.52 initial culture grew ESBL E. coli and Jeni albicans all cultures are pending Objective - Vital Signs Vital signs: Vital Signs Temp 98.3 F 06/03/24 07:20 Pulse 63 06/03/24 07:20 Resp 17 06/03/24 07:20 BP 102/60 06/03/24 07:20 Pulse Ox 95 06/03/24 07:20 FiO2 Intake & Output 06/02/24 06/03/24 06/03/24 18:59 06:59 18:59 Intake Total 400 Output Total 320 350 Balance 80 -350 Weight 65.771 kg 65.771 kg Intake: IV 400 Output: Urine 300 350 Estimated Blood Loss 20 Other: Voiding Method Incontinent Incontinent Incontinent External Catheter External Catheter External Catheter - Exam GENERAL DESCRIPTION: Middle-age male lying in bed in no distress RESPIRATORY SYSTEM: Unlabored breathing , decreased breath sounds at bases HEART: S1 S2 regular rate and rhythm , ABDOMEN: Soft , no tenderness, sacral wound is deep currently packed with silver dressing per wound care EXTREMITIES: No edema feet - Labs CBC & Chem 7: 06/03/24 03:50 06/03/24 03:50 Labs: Abnormal Lab Results - Last 24 Hours (Table) 06/03/24 06/03/24 Range/Units 03:50 03:50 WBC 12.2 H (3.8-10.6) k/uL RBC 3.58 L (4.30-5.90) m/uL Hgb 11.2 L (13.0-17.5) gm/dL Hct 34.3 L (39.0-53.0) % Chloride 110 H (98-107) mmol/L Creatinine 0.52 L (0.66-1.25) mg/dL Calcium 8.1 L (8.4-10.2) mg/dL Microbiology - Last 24 Hours (Table) 06/01/24 03:20 Gram Stain - Final Buttock Wound Culture - Final Jeni albicans Escherichia coli ESBL 06/02/24 15:00 Gram Stain - Preliminary Other - Other 06/01/24 05:18 Blood Culture - Preliminary Blood Assessment and Plan (1) Unstageable pressure ulcer of sacral region Current Visit: Yes Status: Acute Code(s): L89.150 - PRESSURE ULCER OF SACRAL REGION, UNSTAGEABLE SNOMED Code(s): 37983671600315550 (2) Leukocytosis Current Visit: Yes Status: Acute Code(s): D72.829 - ELEVATED WHITE BLOOD CELL COUNT, UNSPECIFIED SNOMED Code(s): 456185985 Plan: 1patient with unstageable sacral pressure ulcer with concern for fluctuation possible abscess will need to cover for polymicrobial riaz associated with such infection including gram-positive as well as gram-negative 2leukocytosis likely related to the infected sacral pressure ulcer 3patient has been eval by general surgery status post surgical debridement extending down to the muscular layer but not involving the board 4patient initial culture grew ESBL and Jeni OR cultures are pending we will continue vancomycin switch Unasyn to Invanz wait for the deep OR culture to determine discharge antibiotic will need a PICC line Dictation was produced using [employer] dictation software. please excuse any grammatical, word or spelling errors.
[2024-06-03] MEDS: ERTAPENEM 1 GM in SODIUM CHLORIDE 0.9% 50 ML IVPB SCH (16:08)
--- NOTE | 2024-06-03 17:16 | P.PN ---
Subjective Progress Note Date: 06/03/24 06/03/2024: Patient was seen for a follow-up. Patient continues to be very confused, mumbling, delirious. No new change. 06/02/2024: Patient was initially seen by Dr. Carvajal. Please refer to her note for details. Patient is a 58-year-old male admitted with delirium with a pre-existing history of dementia. Patient has recent history of COVID-19 infection. Now has wound infection. Head CT showed severe atrophy. I personally reviewed CT head, agree with the findings. Patient's has mentioned that patient has memory difficulties going on for a few years now. He has seen neurologist and diagnosis of Alzheimer's type dementia has been made. In April 2024, patient developed a COVID infection. This occurred around [place] time. After that patient's mentation declined significantly. At present patient has a wound infection which has continued to get worse despite antibiotic treatment. His mentation has worsened with worsening infection. Patient's reports that she is unable to care for him at home. Prior to infection the patient was able to walk and talk. He reportedly was quite agitated, running up and down stairs. He has been given prescription of Haldol and valproic acid for agitation. His mentioned that he was talking nonstop. The psychiatrist has seen the patient, who believes patient does not have Alzheimer's type dementia but has mental status change secondary to history of toxin exposure (paints). More recently, patient is unable to walk, not eating. Patient appears to have significant dementia, very confused as per examination below. Objective - Vital Signs Vital signs: Vital Signs Temp 98.6 F 06/03/24 14:00 Pulse 63 06/03/24 14:00 Resp 17 06/03/24 14:00 BP 98/56 06/03/24 14:00 Pulse Ox 95 06/03/24 14:00 FiO2 Intake & Output 06/02/24 06/03/24 06/03/24 18:59 06:59 18:59 Intake Total 400 200 Output Total 320 350 400 Balance 80 -350 -200 Weight 65.771 kg 65.771 kg Intake: IV 400 Oral 200 Output: Urine 300 350 400 Estimated Blood Loss 20 Other: Voiding Method Incontinent Incontinent Incontinent External Catheter External Catheter External Catheter - Exam Patient is alert and awake, but has a very vacant look. Patient could not tell me his name, could not tell me the current month or the year. He is oriented x 0. Patient has positive palmomental reflex. He has positive snout reflex. His show host are okay. Sometimes he moans with pain. He mumbles with unintelligible speech. Examination was very limited because of his mentation. Patient's tone is moderate to severely increased bilaterally. home aide was helping him eat his dinner. She states that earlier he was awake and rambling but is eating well. He is more shaky. I did not notice any tremors at rest. Slight tremulousness of outstretched hands. He did not cooperate. - Labs CBC & Chem 7: 06/03/24 14:37 06/04/24 03:11 Labs: Abnormal Lab Results - Last 24 Hours (Table) 06/03/24 06/03/24 Range/Units 03:50 03:50 WBC 12.2 H (3.8-10.6) k/uL RBC 3.58 L (4.30-5.90) m/uL Hgb 11.2 L (13.0-17.5) gm/dL Hct 34.3 L (39.0-53.0) % Chloride 110 H (98-107) mmol/L Creatinine 0.52 L (0.66-1.25) mg/dL Calcium 8.1 L (8.4-10.2) mg/dL Microbiology - Last 24 Hours (Table) 06/01/24 05:18 Blood Culture - Preliminary Blood 06/01/24 03:20 Anaerobic Culture - Preliminary Buttock 06/01/24 03:20 Gram Stain - Final Buttock Wound Culture - Final Jeni albicans Escherichia coli ESBL 06/02/24 15:00 Gram Stain - Preliminary Other - Other Assessment and Plan Assessment: 1. Delirium secondary to wound infection, COVID-19 infection, in the setting of baseline dementia 2. Dementia of uncertain etiology, appears advanced. 3. Wound infection (unstageable pressure ulcer of sacral region) with elevated white blood cell count Plan: 1. Primary team treatment of wound infection and other medical management. 2. Consider psychiatry evaluation 3. Consider placement 4. Hold sedative/benzodiazepines 5. EEG was abnormal due to background slowing of moderate degree. This is suggestive of generalized cerebral dysfunction as can be seen with toxic metabolic encephalopathy or related to diffuse structural brain abnormality or perhaps some neurodegenerative process. Clinical correlation is recommended. No focal, lateralized or epileptiform activity was seen. 6. B12 745, RBC folate 599 which is normal. TSH normal 1.15. We will check RPR. Patient's brought outside records from [facility], in which patient had GABRIEL scan on 12/20/2022, which was incomplete study. MRI of the brain without contrast performed on 03/18/2021 for "memory loss" revealed moderate brain atrophy predominating in the frontal lobe. We will get collateral history from patient's . Patient may benefit from Sinemet. Patient currently not on any cognitive enhancing medication. Patient currently on Invanz for wound infection. ID following.
[2024-06-03 19:09] LABS: Basophils # (A) 0.01 X 10*3/uL (0.00-0.10); Basophils % (A) 0.1 %; Eosinophils # (A) 0.02 X 10*3/uL (0.04-0.35); Eosinophils % (A) 0.2 %; HGB 12.2 g/dL (13.0-17.0); Lymphocytes # (A) 1.61 X 10*3/uL (0.90-5.00); MCHC 31.3 g/dL (32.0-37.0); MCV 95.8 FL (80.0-97.0); Mean Platelet Volume 11.2 FL (9.5-12.2); Monocytes % (A) 7.3 %; NRBC Per 100 WBC 0 X 10*3/uL (0.00-0.01); Neutrophils # (A) 9.53 X 10*3/uL (1.80-7.70); Neutrophils % (A) 77.1 %; Platelet Count 292 X 10*3/uL (140-440); RBC 4.07 X 10*6/uL (4.40-5.60); RBC Morphology Normal (Normal); RDW 14.6 % (11.5-14.5); WBC 12.35 X 10*3/uL (4.50-10.00)
--- NOTE | 2024-06-03 23:47 | EEG ---
ELECTROENCEPHALOGRAM REPORT PREAMBLE: This is a 58-year-old male with dementia with altered mental status. CURRENT MEDICATIONS: 1. Lovenox. 2. Haldol. 3. Protonix. 4. Depakene. 5. Vancomycin. EEG FINDINGS: This is a 21-channel digital EEG recorded with video component, utilizing 10/20 international system with referential and bipolar montages. The recording starts and continues with presence of diffuse, low amplitude, 4 to 5 hertz theta activity is seen diffusely in bihemispheric region. Background does not seem to be reactive to eye opening or closing. The patient was noticed to be mumbling frequently during the study and some movement artifacts were seen as well. Different stages of sleep were not seen. No focal or generalized epileptiform activity was seen. Photic stimulation was not performed. IMPRESSION: Abnormal EEG due to background slowing of moderate degree. This is suggestive of generalized cerebral dysfunction as can be seen with toxic metabolic encephalopathy or related to diffuse structural brain abnormality or perhaps some neurodegenerative process. No focal, lateralized, or epileptiform activity was seen. MMODL / IJN: [id number] /
[2024-06-04 09:16] LABS: BUN/Creat Ratio 38.75 Ratio (12.00-20.00); Blood Urea Nitrogen 15.5 mg/dL (9.0-27.0); Calcium 7.8 mg/dL (8.7-10.3); Carbon Dioxide 27.3 mmol/L (21.6-31.8); Chloride 112 mmol/L (96-109); Glucose 100 mg/dL (70-110); Magnesium 2.1 mg/dL (1.5-2.4); Potassium 3.7 mmol/L (3.5-5.5); Sodium 146 mmol/L (135-145)
--- NOTE | 2024-06-04 11:37 | P.PN ---
Subjective Progress Note Date: 06/04/24 Hospital course: Patient is a very pleasant 58-year-old male with a past medical history of dementia. He presented to the emergency department 05/31/2023 secondary to concerns of worsening altered mental status status post COVID-19 infection April 2024. Upon arrival to our facility, patient underwent evaluation in the emergency department. Vital signs upon arrival show blood pressure 95/82, heart rate 72, respiratory rate 18, temp 97.6 F, and SpO2 100% on room air. EKG completed showing normal sinus rhythm at 80 bpm with nonspecific T wave abnormalities. CT brain negative for acute intracranial process showing nonspecific white matter changes likely secondary to chronic small vessel ischemic disease. Chest x-ray negative for acute cardiopulmonary process. Labs completed and reviewed. CBC showing leukocytosis with WBC count of 13.1. Coagulation profile normal findings. BMP showing hypercarbia with bicarb of 34 and prerenal azotemia with BUN of 28. Blood glucose was 90. Magnesium 2.3. Liver profile unremarkable with the exception of hypoalbuminemia with albumin of 2.4. Troponin was negative at less than 0.012. Urinalysis negative for infection. Urine drug screen positive for benzodiazepines otherwise negative. Valproic acid subtherapeutic at 18.1. Patient was found to have a large sacral decubitus ulcer present on arrival. He was admitted under our services with consultation to neurology and general surgery. On 06/02/2024 patient underwent excisional debridement of sacral decubitus ulcer. Patient started on broad-spe ctrum antibiotics and infectious disease was consulted for management. Wound Culture from infected decubitus sacral ulcer positive for Jeni albicans and ESBL E. coli. Physical exam: Patient seen and fully evaluated at bedside this morning. She is more awake and alert this morning but remains oriented to self only. Previously noted resting tremors in upper extremities and face have resolved. Vital signs reviewed and stable. General: Nontoxic, no distress and appears stated age. Derm: Skin warm and dry, normal coloration for ethnicity. Patient with dressing to sacrum status postdebridement of ulcer on 06/02/2024. Head: Atraumatic, normocephalic and symmetric. Eyes: EOM's intact, no lid lag, and anicteric sclera Mouth: no lip lesions, mucus membranes moist Cardiovascular: regular rate and rhythm with normal S1S2, no murmur, positive po sterior tibial pulses bilaterally, and cap refill < 2 seconds. Lungs: Respirations even, regular, and unlabored on room air. Lungs CTA bilaterally, no rhonchi, no rales, no wheezing, and no accessory muscle usage. Abdominal: soft, nontender to palpation, no guarding, no appreciable organomegaly Ext: ROM intact. No gross muscle atrophy, no edema, no contractures Neuro: Speech clear, face symmetrical and CN II-XII grossly intact with no noted focal neuro deficits. GCS 14. Psych: Alert and oriented to person only and confused to place, time, and situation. Patient following limited commands. Assessment and Plan of Care: Acute metabolic encephalopathy, unclear cause possibly secondary to infected sacral ulcer resulting in delirium and underlying dementia ESBL E. coli and Jeni albicans infection of Large decubitus sacral ulcer Dementia, suspect advanced dementia with acute delirium, secondary to above -Wound Culture from infected decubitus sacral ulcer positive for Jeni albicans and ESBL E. coli. -Blood cultures showing no growth to date. -General Surgery following took patient for excisional debridement of sacral decubitus ulcer on 06/02/2024. -Neurology following, reviewed documentation in chart. -Continue neurochecks every 4 hours and maintain fall precautions -Continue Prozac 60 mg daily, Haldol 2 mg daily, and valproic acid 500 mg twice daily. -EEG reported to be abnormal due to background slowing of moderate degree suggestive of generalized cerebral dysfunction as can be seen with toxic metabolic encephalopathy or related to diffuse structural brain abnormality/neurodegenerative process. No focal, lateralized, or epileptiform activity was reported. -Physical and Occupational Therapy following. -Continue IV antibiotics with Invanz 1 g daily and vancomycin 1250 mg IVPB every 8 hours. Close monitoring of renal function and vancomycin trough for any signs of vancomycin associated renal toxicity. -Follow-up on Gram stain and blood culture results. Initial wound culture p ositive for Jeni albicans and ESBL E. coli. -Infectious disease following. Reviewed documentation in chart. -DVT prophylaxis with Lovenox. Data and imaging reviewed: Wound culture positive for Jeni albicans and ESBL E. coli. Blood culture showing no growth to date. Morning labs reviewed. CBC showing leukocytosis with WBC count of 12.35 and normocytic anemia with hemoglobin of 12.2. BMP showing hyperchloremic hypernatremia with sodium of 146 and chloride of 112. Magnesium 2.1. Vancomycin trough therapeutic at 17.9. Vital signs reviewed. Blood pressure 107/65, heart rate 49, respiratory rate 17, temp 97.2 F, and SpO2 of 97% on room air. CODE STATUS: Full code DVT prophylaxis: Lovenox Anticipated discharge date: Pending clinical course Anticipated discharge place: Pending clinical course Patient was seen independently by Nurse Pracitioner. This document was prepared using [employer] dictation software. Please allow for errors in bobbin coil winder, while rare they do occur. Gabriel Gannon NP rendered care for this patient independently, reviewed the findings and plan as documented in the note above and agree with plan. I did n ot physically speak with or examine the patient on this date. Objective - Vital Signs Vital signs: Vital Signs Temp 97.2 F L 06/04/24 07:45 Pulse 49 L 06/04/24 07:45 Resp 17 06/04/24 07:45 BP 107/65 06/04/24 07:45 Pulse Ox 97 06/04/24 07:45 FiO2 Intake & Output 06/03/24 06/04/24 06/04/24 18:59 06:59 18:59 Intake Total 600 Output Total 400 500 Balance 200 -500 Weight 65.771 kg Intake: Oral 600 Output: Urine 400 500 Other: Voiding Method Incontinent Incontinent External Catheter External Catheter # Voids 1 - Labs CBC & Chem 7: 06/03/24 14:37 06/04/24 03:11 Labs: Abnormal Lab Results - Last 24 Hours (Table) 06/03/24 Range/Units 14:37 WBC 12.35 H (4.50-10.00) X 10*3/uL RBC 4.07 L (4.40-5.60) X 10*6/uL Hgb 12.2 L (13.0-17.0) g/dL Hct 39.0 L (39.6-50.0) % MCHC 31.3 L (32.0-37.0) g/dL RDW 14.6 H (11.5-14.5) % Immature Gran # 0.28 H (0.00-0.04) X 10*3/uL Neutrophils # 9.53 H (1.80-7.70) X 10*3/uL Eosinophils # 0.02 L (0.04-0.35) X 10*3/uL Microbiology - Last 24 Hours (Table) 06/01/24 03:20 Anaerobic Culture - Final Buttock Anaerobic Gm Negative Bacilli Anaerobic Gm Negative Bacilli#2 06/02/24 15:00 Gram Stain - Preliminary Other - Other Wound Culture - Preliminary 06/01/24 05:18 Blood Culture - Preliminary Blood 06/01/24 03:20 Gram Stain - Final Buttock Wound Culture - Final Jeni albicans Escherichia coli ESBL
--- NOTE | 2024-06-04 12:18 | P.PN ---
Subjective Progress Note Date: 06/04/24 Principal diagnosis: Reason for follow-up is infected sacral pressure ulcer Patient is a 58-year-old male with a past medical history significant for dementia COVID-19 patient has been brought into the hospital for evaluation of mental status changes as the patient noted to have been more confused delirious and also noticed to have worsening of the wound to the sacral area probably this consultation.Patient is status post excisional debridement of his sacral pressure ulcer extending to the deep subcutaneous layer and muscular layer but not involving the bone On today's evaluation that is 06/04/2024,the patient has been afebrile patient is breathing comfortably currently on room air patient remains to be pleasantly confused unable to provide reliable history no vomiting or diarrhea has been reported. Patient did have a creatinine 0.4 Vanco trough is 17.9 OR cultures currently pending Objective - Vital Signs Vital signs: Vital Signs Temp 97.2 F L 06/04/24 07:45 Pulse 49 L 06/04/24 07:45 Resp 17 06/04/24 07:45 BP 107/65 06/04/24 07:45 Pulse Ox 97 06/04/24 07:45 FiO2 Intake & Output 06/03/24 06/04/24 06/04/24 18:59 06:59 18:59 Intake Total 600 Output Total 400 500 Balance 200 -500 Weight 65.771 kg Intake: Oral 600 Output: Urine 400 500 Other: Voiding Method Incontinent Incontinent Incontinent External Catheter External Catheter External Catheter # Voids 1 - Exam GENERAL DESCRIPTION: Middle-age male lying in bed in no distress RESPIRATORY SYSTEM: Unlabored breathing , decreased breath sounds at bases HEART: S1 S2 regular rate and rhythm , ABDOMEN: Soft , no tenderness, sacral wound is deep currently packed with silver dressing per wound care EXTREMITIES: No edema feet - Labs CBC & Chem 7: 06/03/24 14:37 06/04/24 03:11 Labs: Abnormal Lab Results - Last 24 Hours (Table) 06/03/24 06/04/24 Range/Units 14:37 03:11 WBC 12.35 H (4.50-10.00) X 10*3/uL RBC 4.07 L (4.40-5.60) X 10*6/uL Hgb 12.2 L (13.0-17.0) g/dL Hct 39.0 L (39.6-50.0) % MCHC 31.3 L (32.0-37.0) g/dL RDW 14.6 H (11.5-14.5) % Immature Gran # 0.28 H (0.00-0.04) X 10*3/uL Neutrophils # 9.53 H (1.80-7.70) X 10*3/uL Eosinophils # 0.02 L (0.04-0.35) X 10*3/uL Sodium 146 H (135-145) mmol/L Chloride 112 H (96-109) mmol/L Creatinine 0.4 L (0.6-1.5) mg/dL BUN/Creatinine Ratio 38.75 H (12.00-20.00) Ratio Calcium 7.8 L (8.7-10.3) mg/dL Microbiology - Last 24 Hours (Table) 06/01/24 03:20 Anaerobic Culture - Final Buttock Anaerobic Gm Negative Bacilli Anaerobic Gm Negative Bacilli#2 06/02/24 15:00 Gram Stain - Preliminary Other - Other Wound Culture - Preliminary 06/01/24 05:18 Blood Culture - Preliminary Blood 06/01/24 03:20 Gram Stain - Final Buttock Wound Culture - Final Jeni albicans Escherichia coli ESBL Assessment and Plan (1) Unstageable pressure ulcer of sacral region Current Visit: Yes Status: Acute Code(s): L89.150 - PRESSURE ULCER OF SACRAL REGION, UNSTAGEABLE SNOMED Code(s): 30138549142606446 (2) Leukocytosis Current Visit: Yes Status: Acute Code(s): D72.829 - ELEVATED WHITE BLOOD CELL COUNT, UNSPECIFIED SNOMED Code(s): 277328609 Plan: 1patient with unstageable sacral pressure ulcer with concern for fluctuation possible abscess will need to cover for polymicrobial riaz associated with such infection including gram-positive as well as gram-negative 2leukocytosis likely related to the infected sacral pressure ulcer 3patient has been eval by general surgery status post surgical debridement extending down to the muscular layer but not involving the bone 4patient initial culture grew ESBL and Jeni OR cultures are pending we will continue vancomycin along with Invanz wait for the deep OR culture to determine discharge antibiotic, will order PICC line Dictation was produced using [employer] software. please excuse any gramm atical, word or spelling errors. Time with Patient: Less than 30
[2024-06-04] MEDS: DEXTROSE 5%-0.45% NACL 1,000 ML IV SCH (12:32)
[2024-06-05 09:11] LABS: Magnesium 2.1 mg/dL (1.5-2.4)
[2024-06-05 09:15] LABS: HCT 33.9 % (39.6-50.0); MCH 30.9 pg (27.0-32.0); MCHC 32.4 g/dL (32.0-37.0); MCV 95.2 FL (80.0-97.0); Mean Platelet Volume 10.7 FL (9.5-12.2); NRBC Per 100 WBC 0 X 10*3/uL (0.00-0.01); Platelet Count 269 X 10*3/uL (140-440); RBC 3.56 X 10*6/uL (4.40-5.60); RDW 13.8 % (11.5-14.5); WBC 6.06 X 10*3/uL (4.50-10.00)
[2024-06-05 10:02] LABS: ALT 21 U/L (10-49); AST 16 U/L (14-35); Albumin/Globulin Ratio 0.95 Ratio (1.60-3.17); Alkaline Phosphatase 55 U/L (41-126); Blood Urea Nitrogen 9.9 mg/dL (9.0-27.0); Calcium 7.5 mg/dL (8.7-10.3); Carbon Dioxide 28.5 mmol/L (21.6-31.8); Chloride 109 mmol/L (96-109); Globulin 2.1 g/dL (1.6-3.3); Glucose 110 mg/dL (70-110); Potassium 3.6 mmol/L (3.5-5.5); Sodium 143 mmol/L (135-145); Total Bilirubin 0.4 mg/dL (0.3-1.2); Total Protein 4.1 g/dL (6.2-8.2)
--- NOTE | 2024-06-05 11:48 | P.PN ---
Subjective Progress Note Date: 06/04/24 06/04/2024: Patient was seen for follow-up. Patient is much more alert and awake. He denies headache. The nurse reports that he spit out his Depakote but was able to take his Haldol. Patient appears pleasant. Please refer to examination below. 06/03/2024: Patient was seen for a follow-up. Patient continues to be very confused, mumbling, delirious. No new change. 06/02/2024: Patient was initially seen by Dr. Carvajal. Please refer to her note for details. Patient is a 58-year-old male admitted with delirium with a pre-existing history of dementia. Patient has recent history of COVID-19 infection. Now has wound infection. Head CT showed severe atrophy. I personally reviewed CT head, agree with the findings. Patient's has mentioned that patient has memory difficulties going on for a few years now. He has seen neurologist and diagnosis of Alzheimer's type dementia has been made. In April 2024, patient developed a COVID infection. This occurred around [place] time. After that patient's mentation declined significantly. At present patient has a wound infection which has continued to get worse despite antibiotic treatment. His mentation has worsened with worsening infection. Patient's reports that she is unable to care for him at home. Prior to infection the patient was able to walk and talk. He reportedly was quite agitated, running up and down stairs. He has been given prescription of Haldol and valproic acid for agitation. His mentioned that he was talking nonstop. The psychiatrist has seen the patient, who believes patient does not have Alzheimer's type dementia but has mental status change secondary to history of toxin exposure (paints). More recently, patient is unable to walk, not eating. Patient appears to have significant dementia, very confused as per examination below. Objective - Vital Signs Vital signs: Vital Signs Temp 98.7 F 06/04/24 13:45 Pulse 60 06/04/24 13:45 Resp 16 06/04/24 13:45 BP 111/64 06/04/24 13:45 Pulse Ox 95 06/04/24 13:45 FiO2 Intake & Output 06/03/24 06/04/24 06/04/24 18:59 06:59 18:59 Intake Total 600 Output Total 400 500 Balance 200 -500 Weight 65.771 kg Intake: Oral 600 Output: Urine 400 500 Other: Voiding Method Incontinent Incontinent Incontinent External Catheter External Catheter External Catheter # Voids 1 - Exam Patient is alert and awake, appears more interactive, makes eye contact and tries to speak. His speech is still with poor content, but sometimes speaks clearly. When I asked "how old are you", patient replied "how old am I?" When I asked where he lives, patient states "I live in ...., Where am I at?". He knows his name Maurilio. Patient's tone is moderately increased bilaterally. No obvious resting tremors noted. - Labs CBC & Chem 7: 06/05/24 04:09 06/05/24 04:09 Labs: Abnormal Lab Results - Last 24 Hours (Table) 06/03/24 06/04/24 Range/Units 14:37 03:11 WBC 12.35 H (4.50-10.00) X 10*3/uL RBC 4.07 L (4.40-5.60) X 10*6/uL Hgb 12.2 L (13.0-17.0) g/dL Hct 39.0 L (39.6-50.0) % MCHC 31.3 L (32.0-37.0) g/dL RDW 14.6 H (11.5-14.5) % Immature Gran # 0.28 H (0.00-0.04) X 10*3/uL Neutrophils # 9.53 H (1.80-7.70) X 10*3/uL Eosinophils # 0.02 L (0.04-0.35) X 10*3/uL Sodium 146 H (135-145) mmol/L Chloride 112 H (96-109) mmol/L Creatinine 0.4 L (0.6-1.5) mg/dL BUN/Creatinine Ratio 38.75 H (12.00-20.00) Ratio Calcium 7.8 L (8.7-10.3) mg/dL Microbiology - Last 24 Hours (Table) 06/01/24 05:18 Blood Culture - Preliminary Blood 06/01/24 03:20 Anaerobic Culture - Final Buttock Anaerobic Gm Negative Bacilli Anaerobic Gm Negative Bacilli#2 06/02/24 15:00 Gram Stain - Preliminary Other - Other Wound Culture - Preliminary Assessment and Plan Assessment: 1. Delirium secondary to wound infection, COVID-19 infection, in the setting of baseline dementia 2. Dementia of uncertain etiology, appears advanced. 3. Wound infection (unstageable pressure ulcer of sacral region) with elevated white blood cell count Plan: 1. Primary team treatment of wound infection and other medical management. 2. Consider psychiatry evaluation 3. Consider placement 4. Hold sedative/benzodiazepines 5. EEG was abnormal due to background slowing of moderate degree. This is suggestive of generalized cerebral dysfunction as can be seen with toxic metabolic encephalopathy or related to diffuse structural brain abnormality or perhaps some neurodegenerative process. Clinical correlation is recommended. No focal, lateralized or epileptiform activity was seen. 6. B12 745, RBC folate 599 which is normal. TSH normal 1.15. We will check RPR. Patient's brought outside records from [facility], in which patient had GABRIEL scan on 12/20/2022, which was incomplete study. MRI of the brain without contrast performed on 03/18/2021 for "memory loss" revealed moderate brain atrophy predominating in the frontal lobe. I spoke to patient's on the phone. She mentions that patient has progressive loss of memory over the last 2 to 3 years. He used to paint since age 11 and did not use any mask or protective device. He stopped painting when he got sick 3 years ago. She is not sure if patient was exposed to these toxins that led to this dementia. She was also exposed to black mold. Patient has previously seen Dr. Garcia at [facility] who diagnosed him with Alzhei addy's dementia. He is also seen neurologist at [facility] in [place]. He was tried on Aricept 10 mg which did not work, therefore it was stopped. Never tried on Namenda. Patient's denies any family history of dementia and his parents or grandparents. We will try Namenda 5 mg twice daily. Patient's will try to bring the results of PET scan. We will consider lumbar puncture, if cleared by ID. Patient may benefit from Sinemet. Patient currently on Invanz for wound infection. ID following.
[2024-06-05] MEDS: MEMANTINE 5 MG TAB PO SCH (12:13)
[2024-06-05] MEDS: FLUCONAZOLE 100 MG TAB PO SCH (12:13)
--- NOTE | 2024-06-05 12:16 | P.PN ---
Subjective Progress Note Date: 06/05/24 Principal diagnosis: Reason for follow-up is infected sacral pressure ulcer Patient is a 58-year-old male with a past medical history significant for dementia COVID-19 patient has been brought into the hospital for evaluation of mental status changes as the patient noted to have been more confused delirious and also noticed to have worsening of the wound to the sacral area probably this consultation.Patient is status post excisional debridement of his sacral pressure ulcer extending to the deep subcutaneous layer and muscular layer but not involving the bone On today's evaluation that is 06/05/2024,the patient remains to be afebrile, patient is on room air not requiring supplemental oxygen and does not seem to be any distress patient is sleepy comfortable no other changes reported by nursing staff. Patient white count 6.06, creatinine 0.5 OR culture now growing Jeni albicans Objective - Vital Signs Vital signs: Vital Signs Temp 96.8 F L 06/05/24 07:35 Pulse 55 L 06/05/24 07:35 Resp 16 06/05/24 07:35 BP 111/72 06/05/24 07:35 Pulse Ox 96 06/05/24 07:35 FiO2 Intake & Output 06/04/24 06/05/24 06/05/24 18:59 06:59 18:59 Output Total 625 900 Balance -625 -900 Output: Urine 625 900 Other: Voiding Method Incontinent Incontinent External Catheter External Catheter # Bowel Movements 0 - Exam GENERAL DESCRIPTION: Middle-age male lying in bed in no distress RESPIRATORY SYSTEM: Unlabored breathing , decreased breath sounds at bases HEART: S1 S2 regular rate and rhythm , ABDOMEN: Soft , no tenderness, sacral wound is deep currently packed with silver dressing per wound care EXTREMITIES: No edema feet - Labs CBC & Chem 7: 06/05/24 04:09 06/05/24 04:09 Labs: Abnormal Lab Results - Last 24 Hours (Table) 06/05/24 06/05/24 Range/Units 04:09 04:09 RBC 3.56 L (4.40-5.60) X 10*6/uL Hgb 11.0 L (13.0-17.0) g/dL Hct 33.9 L (39.6-50.0) % Creatinine 0.5 L (0.6-1.5) mg/dL Calcium 7.5 L (8.7-10.3) mg/dL Total Protein 4.1 L (6.2-8.2) g/dL Albumin 2.0 L (3.8-4.9) g/dL Albumin/Globulin Ratio 0.95 L (1.60-3.17) Ratio Microbiology - Last 24 Hours (Table) 06/02/24 15:00 Anaerobic Culture - Preliminary Other - Other 06/02/24 15:00 Gram Stain - Final Other - Other Wound Culture - Final Jeni albicans 06/01/24 05:18 Blood Culture - Preliminary Blood 06/01/24 03:20 Anaerobic Culture - Final Buttock Anaerobic Gm Negative Bacilli Anaerobic Gm Negative Bacilli#2 Assessment and Plan (1) Unstageable pressure ulcer of sacral region Current Visit: Yes Status: Acute Code(s): L89.150 - PRESSURE ULCER OF SACRAL REGION, UNSTAGEABLE SNOMED Code(s): 78187692887302439 (2) Leukocytosis Current Visit: Yes Status: Acute Code(s): D72.829 - ELEVATED WHITE BLOOD CELL COUNT, UNSPECIFIED SNOMED Code(s): 935670570 Plan: 1patient with unstageable sacral pressure ulcer with concern for fluctuation possible abscess will need to cover for polymicrobial riaz associated with such infection including gram-positive as well as gram-negative 2leukocytosis likely related to the infected sacral pressure ulcer 3patient has been eval by general surgery status post surgical debridement extending down to the muscular layer but not involving the bone 4patient initial culture grew ESBL and Jeni OR cultures are currently growing Jeni albicans we will continue with Invanz add oral Diflucan and discontinue vancomycin Dictation was produced using [email or web address] dictation software. please excuse any grammatical, word or spelling errors.
--- NOTE | 2024-06-05 14:48 | P.PN ---
Subjective Progress Note Date: 06/05/24 Hospital course: Patient is a very pleasant 58-year-old male with a past medical history of dementia. He presented to the emergency department 05/31/2023 secondary to concerns of worsening altered mental status status post COVID-19 infection April 2024. Upon arrival to our facility, patient underwent evaluation in the emergency department. Vital signs upon arrival show blood pressure 95/82, heart rate 72, respiratory rate 18, temp 97.6 F, and SpO2 100% on room air. EKG completed showing normal sinus rhythm at 80 bpm with nonspecific T wave abnormalities. CT brain negative for acute intracranial process showing nonspecific white matter changes likely secondary to chronic small vessel ischemic disease. Chest x-ray negative for acute cardiopulmonary process. Labs completed and reviewed. CBC showing leukocytosis with WBC count of 13.1. Coagulation profile normal findings. BMP showing hypercarbia with bicarb of 34 and prerenal azotemia with BUN of 28. Blood glucose was 90. Magnesium 2.3. Liver profile unremarkable with the exception of hypoalbuminemia with albumin of 2.4. Troponin was negative at less than 0.012. Urinalysis negative for infection. Urine drug screen positive for benzodiazepines otherwise negative. Valproic acid subtherapeutic at 18.1. Patient was found to have a large sacral decubitus ulcer present on arrival. He was admitted under our services with consultation to neurology and general surgery. On 06/02/2024 patient underwent excisional debridement of sacral decubitus ulcer. Patient started on broad-spe ctrum antibiotics and infectious disease was consulted for management. Wound Culture from infected decubitus sacral ulcer positive for Jeni albicans and ESBL E. coli. Physical exam: Patient seen and fully evaluated at bedside this morning. Patient's mentation unchanged. He remains alert to self only. Repeating swear words similar to a Tourette's pattern. No noted tremors today. Vital signs reviewed and stable. General: Nontoxic, no distress and appears stated age. Derm: Skin warm and dry, normal coloration for ethnicity. Patient with dressing to sacrum status postdebridement of ulcer on 06/02/2024. Head: Atraumatic, normocephalic and symmetric. Eyes: EOM's intact, no lid lag, and anicteric sclera Mouth: no lip lesions, mucus membranes moist Cardiovascular: regular rate and rhythm with normal S1S2, no murmur, positive posterior tibial pulses bilaterally, and cap refill < 2 seconds. Lungs: Respirations even, regular, and unlabored on room air. Lungs CTA bilaterally, no rhonchi, no rales, no wheezing, and no accessory muscle usage. Abdominal: soft, nontender to palpation, no guarding, no appreciable organomegaly Ext: ROM intact. No gross muscle atrophy, no edema, no contractures Neuro: Speech clear, face symmetrical, GCS 14. Pt continuously repeating swear words similar to a Tourette's pattern. No noted tremors today. Psych: Alert and oriented to person only and confused to place, time, and situation. Patient following very limited commands. Assessment and Plan of Care: Acute metabolic encephalopathy, unclear cause possibly secondary to infected sa cral ulcer resulting in delirium and underlying dementia ESBL E. coli and Jeni albicans infection of Large decubitus sacral ulcer Dementia, suspect advanced dementia with acute delirium, secondary to above -Wound Culture from infected decubitus sacral ulcer positive for Jeni albicans and ESBL E. coli. -Blood cultures showing no growth to date. -General Surgery following took patient for excisional debridement of sacral decubitus ulcer on 06/02/2024. -Infectious disease following. Discussed plan of care. Discontinued vancomycin and starting patient on Diflucan 200 mg daily in addition to Invanz 1 g daily. -Neurology following, starting patient on Namenda 5 mg twice daily -Continue neurochecks every 4 hours and maintain fall precautions -Continue Prozac 60 mg daily, Haldol 2 mg daily, and valproic acid 500 mg twice daily. -EEG reported to be abnormal due to background slowing of moderate degree suggestive of generalized cerebral dysfunction as can be seen with toxic metabolic encephalopathy or related to diffuse structural brain abnormality/neurodegenerative process. No focal, lateralized, or epileptiform activity was reported. -Physical and Occupational Therapy following. -Continue IV antibiotics with Invanz 1 g daily along with Diflucan 200 mg daily. -Midline was placed in anticipation of discharge on IV antibiotics Data and imaging reviewed: Wound culture positive for Jeni albicans and ESBL E. coli. Blood culture showing no growth to date. Morning labs reviewed. CBC showing resolution of leukocytosis with WBC count of 6.06. Hemoglobin remained stable at 11.0. BMP unremarkable. Blood glucose 110. Magnesium 2.1. Liver profile unremarkable with the exception of hypoalbuminemia with albumin of 2.0. Syphilis treponema nonreactive. Vital signs reviewed. Blood pressure 111/72, heart rate 55, respiratory rate 16, temp 96.8 F axillary and SpO2 of 96% on room air. CODE STATUS: Full code DVT prophylaxis: Lovenox Anticipated discharge date: Pending clinical course Anticipated discharge place: Pending clinical course, patient will likely need SNF placement vs long-term care facility Patient was seen independently by Nurse Pracitioner. This document was prepared using [employer] dictation software. Please allow for errors in dice table person, while rare they do occur. Gabriel Gannon NP rendered care for this patient independently, reviewed the findings and plan as documented in the note above and agree with plan. I did not physically speak with or examine the patient on this date. Objective - Vital Signs Vital signs: Vital Signs Temp 96.8 F L 06/05/24 07:35 Pulse 55 L 06/05/24 07:35 Resp 16 06/05/24 07:35 BP 111/72 06/05/24 07:35 Pulse Ox 96 06/05/24 07:35 FiO2 Intake & Output 06/04/24 06/05/24 06/05/24 18:59 06:59 18:59 Output Total 625 900 Balance -625 -900 Output: Urine 625 900 Other: Voiding Method Incontinent Incontinent External Catheter External Catheter # Bowel Movements 0 - Labs CBC & Chem 7: 06/05/24 04:09 06/05/24 04:09 Labs: Abnormal Lab Results - Last 24 Hours (Table) 06/05/24 Range/Units 04:09 RBC 3.56 L (4.40-5.60) X 10*6/uL Hgb 11.0 L (13.0-17.0) g/dL Hct 33.9 L (39.6-50.0) % Microbiology - Last 24 Hours (Table) 06/02/24 15:00 Anaerobic Culture - Preliminary Other - Other 06/02/24 15:00 Gram Stain - Final Other - Other Wound Culture - Final Jeni albicans 06/01/24 05:18 Blood Culture - Preliminary Blood 06/01/24 03:20 Anaerobic Culture - Final Buttock Anaerobic Gm Negative Bacilli Anaerobic Gm Negative Bacilli#2
[2024-06-06 05:23] LABS: ALT 29 U/L (4-49); AST 27 U/L (17-59); African American GFR (CKD) >90 (>60 ml/min/1.73 sqM); Albumin/Globulin Ratio 0.8; Alkaline Phosphatase 58 U/L (38-126); Anion Gap 3 mmol/L; Blood Urea Nitrogen 9 mg/dL (9-20); Calcium 7.7 mg/dL (8.4-10.2); Carbon Dioxide 27 mmol/L (22-30); Chloride 106 mmol/L (98-107); Globulin 2.4 g/dL; Glucose 76 mg/dL (74-99); Magnesium 2.3 mg/dL (1.6-2.3); Non-African American GFR(CKD) >90 (>60 ml/min/1.73 sqM); Potassium 3.8 mmol/L (3.5-5.1); Sodium 136 mmol/L (137-145); Total Bilirubin 0.8 mg/dL (0.2-1.3); Total Protein 4.4 g/dL (6.3-8.2)
[2024-06-06 07:38] VITALS: RESP 18
[2024-06-06 08:30] LABS: HCT 35.5 % (39.6-50.0); HGB 11.4 g/dL (13.0-17.0); MCH 30.2 pg (27.0-32.0); MCHC 32.1 g/dL (32.0-37.0); MCV 94.2 FL (80.0-97.0); Mean Platelet Volume 10.7 FL (9.5-12.2); NRBC Per 100 WBC 0 X 10*3/uL (0.00-0.01); Platelet Count 299 X 10*3/uL (140-440); RBC 3.77 X 10*6/uL (4.40-5.60); RDW 13.6 % (11.5-14.5); WBC 6.42 X 10*3/uL (4.50-10.00)
--- NOTE | 2024-06-06 09:27 | P.PN ---
Subjective Progress Note Date: 06/05/24 06/05/2024: Patient was seen for a follow-up. Patient is sleeping at this time. He appears comfortable. 06/04/2024: Patient was seen for follow-up. Patient is much more alert and awake. He denies headache. The nurse reports that he spit out his Depakote but was able to take his Haldol. Patient appears pleasant. Please refer to examination below. 06/03/2024: Patient was seen for a follow-up. Patient continues to be very confused, mumbling, delirious. No new change. 06/02/2024: Patient was initially seen by Dr. Carvajal. Please refer to her note for details. Patient is a 58-year-old male admitted with delirium with a pre-existing history of dementia. Patient has recent history of COVID-19 infection. Now has wound infection. Head CT showed severe atrophy. I personally reviewed CT head, agree with the findings. Patient's has mentioned that patient has memory difficulties going on for a few years now. He has seen neurologist and diagnosis of Alzheimer's type dementia has been made. In April 2024, patient developed a COVID infection. This occurred around [place] time. After that patient's mentation declined significantly. At present patient has a wound infection which has continued to get worse despite antibiotic treatment. His mentation has worsened with worsening infection. Patient's reports that she is unable to care for him at home. Prior to infection the patient was able to walk and talk. He reportedly was quite agitated, running up and down stairs. He has been given pr escription of Haldol and valproic acid for agitation. His mentioned that he was talking nonstop. The psychiatrist has seen the patient, who believes patient does not have Alzheimer's type dementia but has mental status change secondary to history of toxin exposure (paints). More recently, patient is unable to walk, not eating. Patient appears to have significant dementia, very confused as per examination below. Objective - Vital Signs Vital signs: Vital Signs Temp 98 F 06/05/24 14:05 Pulse 64 06/05/24 14:05 Resp 16 06/05/24 14:05 BP 107/67 06/05/24 14:05 Pulse Ox 95 06/05/24 14:05 FiO2 Intake & Output 06/04/24 06/05/24 06/05/24 18:59 06:59 18:59 Output Total 625 900 Balance -625 -900 Weight 65.771 kg Output: Urine 625 900 Other: Voiding Method Incontinent Incontinent External Catheter External Catheter # Bowel Movements 0 - Exam 06/05/2024: Patient is sleeping. Tried to wake him up, but he is not waking up. Will defer detailed examination. 06/04/2024: Patient is alert and awake, appears more interactive, makes eye contact and tries to speak. His speech is still with poor content, but sometimes speaks clearly. When I asked "how old are you", patient replied "how old am I?" When I asked where he lives, patient states "I live in ...., Where am I at?". He knows his name Maurilio. Patient's tone is moderately increased bilaterally. No obvious resting tremors noted. - Labs CBC & Chem 7: 06/06/24 04:31 06/06/24 04:24 Labs: Abnormal Lab Results - Last 24 Hours (Table) 06/05/24 06/05/24 Range/Units 04:09 04:09 RBC 3.56 L (4.40-5.60) X 10*6/uL Hgb 11.0 L (13.0-17.0) g/dL Hct 33.9 L (39.6-50.0) % Creatinine 0.5 L (0.6-1.5) mg/dL Calcium 7.5 L (8.7-10.3) mg/dL Total Protein 4.1 L (6.2-8.2) g/dL Albumin 2.0 L (3.8-4.9) g/dL Albumin/Globulin Ratio 0.95 L (1.60-3.17) Ratio Microbiology - Last 24 Hours (Table) 06/02/24 15:00 Anaerobic Culture - Preliminary Other - Other 06/02/24 15:00 Gram Stain - Final Other - Other Wound Culture - Final Jeni albicans 06/01/24 05:18 Blood Culture - Preliminary Blood Assessment and Plan Assessment: 1. Delirium secondary to wound infection, COVID-19 infection, in the setting of baseline dementia 2. Dementia of uncertain etiology, appears advanced. 3. Wound infection (unstageable pressure ulcer of sacral region) with elevated white blood cell count Plan: 1. Primary team treatment of wound infection and other medical management. 2. Consider psychiatry evaluation 3. Consider placement 4. Hold sedative/benzodiazepines 5. EEG was abnormal due to background slowing of moderate degree. This is suggestive of generalized cerebral dysfunction as can be seen with toxic metabolic encephalopathy or related to diffuse structural brain abnormality or perhaps some neurodegenerative process. Clinical correlation is recommended. No focal, lateralized or epileptiform activity was seen. 6. B12 745, RBC folate 599 which is normal. TSH normal 1.15. RPR negative. Patient's brought outside records from [facility], in which patient had GABRIEL scan on 12/20/2022, which was incomplete study. MRI of the brain without contrast performed on 03/18/2021 for "memory loss" revealed moderate brain atrophy predominating in the frontal lobe. I spoke to patient's on the phone. She mentions that patient has progressive loss of memory over the last 2 to 3 years. He used to paint since age 11 and did not use any mask or protective device. He stopped painting when he got sick 3 years ago. She is not sure if patient was exposed to these toxins that led to this dementia. He was also exposed to black mold. Patient has previously seen Dr. Garcia at [facility] who diagnosed him with Alzheimer's dementia. He is also seen neurologist at [facility] in [place]. He was tried on Aricept 10 mg which did not work, therefore it was stopped. Never tried on Namenda. Patient's denies any family history of dementia in his parents or grandparents. Patient started on Namenda 5 mg twice daily. We will consider lumbar puncture, if cleared by ID. Patient may benefit from Sinemet. Patient on Depakote, level 18.1. Patient currently on Invanz and Diflucan for wound infection. ID following.
[2024-06-06] MEDS ORDERED: VANCOMYCIN TROUGH DUE 1 EACH MISC MISCELLANE ONE (11:00)
--- NOTE | 2024-06-06 14:17 | P.PN ---
Subjective Progress Note Date: 06/06/24 Hospital course: Patient is a very pleasant 58-year-old male with a past medical history of Alzheimer's dementia and mental status change status post exposure to t oxins/paints. He presented to the emergency department 05/31/2023 secondary to concerns of worsening altered mental status status post COVID-19 infection April 2024. Upon arrival to our facility, patient underwent evaluation in the emergency department. Vital signs upon arrival show blood pressure 95/82, heart rate 72, respiratory rate 18, temp 97.6 F, and SpO2 100% on room air. EKG completed showing normal sinus rhythm at 80 bpm with nonspecific T wave abnormalities. CT brain negative for acute intracranial process showing nonspecific white matter changes likely secondary to chronic small vessel ischemic disease. Chest x-ray negative for acute cardiopulmonary process. Labs completed and reviewed. CBC showing leukocytosis with WBC count of 13.1. Coagulation profile normal findings. BMP showing hypercarbia with bicarb of 34 and prerenal azotemia with BUN of 28. Blood glucose was 90. Magnesium 2.3. Liver profile unremarkable with the exception of hypoalbuminemia with albumin of 2.4. Troponin was negative at less than 0.012. Urinalysis negative for infection. Urine drug screen positive for benzodiazepines otherwise negative. Valproic acid subtherapeutic at 18.1. Patient was found to have a large sacral decubitus ulcer present on arrival. He was admitted under our services with consultation to neurology and general surgery. On 06/02/2024 patient underwent excisional debridement of sacral decubitus ulcer. Patient started on broad- spectrum antibiotics and infectious disease was consulted for management. Wound Culture from infected decubitus sacral ulcer positive for Jeni albicans and ESBL E. coli. Physical exam: Patient seen and fully evaluated at bedside this morning. Remains alert to self only but is speaking in more sentences this morning compared to yesterday. He continues to repeat words in almost a Tourette's pattern but also speaking in more fluent sentences this morning. Plan is for discharge to [facility]. Currently awaiting insurance authorization. Vital signs reviewed and stable. General: Nontoxic, no distress and appears stated age. Derm: Skin warm and dry, normal coloration for ethnicity. Patient with dressing to sacrum status postdebridement of ulcer on 06/02/2024. Head: Atraumatic, normocephalic and symmetric. Eyes: EOM's intact, no lid lag, and anicteric sclera Mouth: no lip lesions, mucus membranes moist Cardiovascular: regular rate and rhythm with normal S1S2, no murmur, positive posterior tibial pulses bilaterally, and cap refill < 2 seconds. Lungs: Respirations even, regular, and unlabored on room air. Lungs CTA bilaterally, no rhonchi, no rales, no wheezing, and no accessory muscle usage. Abdominal: soft, nontender to palpation, no guarding, no appreciable organomegaly Ext: ROM intact. No gross muscle atrophy, no edema, no contractures Neuro: Speech clear, face symmetrical, GCS 14. Pt continuously repeating swear words similar to a Tourette's pattern. No noted tremors today. Psych: Alert and oriented to person only and confused to place, time, and situation. Patient following very limited commands. Assessment and Plan of Care: Acute metabolic encephalopathy, unclear cause possibly secondary to infected sacral ulcer resulting in delirium and underlying dementia ESBL E. coli and Jeni albicans infection of Large decubitus sacral ulcer Dementia, suspect advanced dementia with acute delirium, secondary to above -Wound Culture from infected decubitus sacral ulcer positive for Jeni albicans and ESBL E. coli. -Blood cultures showing no growth to date. -General Surgery following took patient for excisional debridement of sacral decubitus ulcer on 06/02/2024. -Infectious disease following. Discussed plan of care. Patient to be discharged to SNF on Diflucan 200 mg daily and Invanz 1 g daily. -Neurology following, starting patient on Namenda 5 mg twice daily. Discussed plan of care with Dr. Reed who plans on discussing with infectious disease possibility of spinal tap to look for an underlying cause of pt's advanced dementia. -Continue neurochecks every 4 hours and maintain fall precautions -Continue Prozac 60 mg daily, Haldol 2 mg daily, and valproic acid 500 mg twice daily. -EEG reported to be abnormal due to background slowing of moderate degree suggestive of generalized cerebral dysfunction as can be seen with toxic metabolic encephalopathy or related to diffuse structural brain abnormality/neurodegenerative process. No focal, lateralized, or epileptiform activity was reported. -Physical and Occupational Therapy following. -Continue IV antibiotics with Invanz 1 g daily along with Diflucan 200 mg daily. -Midline was placed in anticipation of discharge on IV antibiotics Data and imaging reviewed: Wound culture positive for Jeni albicans and ESBL E. coli. Blood culture showing no growth to date. Morning labs reviewed. CBC showing stable hemoglobin of 11.4. BMP remains unremarkable. Liver profile normal findings with exception of hypoalbuminemia with albumin of 2.0. Blood glucose was 76 this morning. Vital signs reviewed. Blood pressure 107/70, heart rate 71, respiratory rate 18, temp 97.5 F, and SpO2 of 94% on room air. CODE STATUS: Full code DVT prophylaxis: Lovenox Anticipated discharge date: Pending insurance authorization Anticipated discharge place: Pending clinical course, patient will likely need SNF placement vs long-term care facility Patient was seen independently by Nurse Pracitioner. This document was prepared using [employer] dictation software. Please allow for errors in permit specialist, while rare they do occur. Gabriel Gannon NP rendered care for this patient independently, reviewed the findings and plan as documented in the note above and agree with plan. I did not physically speak with or examine the patient on this date. Objective - Vital Signs Vital signs: Vital Signs Temp 97.5 F L 06/06/24 07:38 Pulse 71 06/06/24 07:38 Resp 18 06/06/24 07:38 BP 107/70 06/06/24 07:38 Pulse Ox 90 L 06/06/24 07:38 FiO2 Intake & Output 06/05/24 06/06/24 06/06/24 18:59 06:59 18:59 Output Total 750 650 Balance -750 -650 Weight 65.771 kg Output: Urine 750 650 Other: Voiding Method Incontinent Incontinent External Catheter External Catheter # Voids 2 - Labs CBC & Chem 7: 06/06/24 04:31 06/06/24 04:24 Labs: Abnormal Lab Results - Last 24 Hours (Table) 06/05/24 06/06/24 06/06/24 Range/Units 04:09 04:24 04:31 RBC 3.77 L (4.40-5.60) X 10*6/uL Hgb 11.4 L (13.0-17.0) g/dL Hct 35.5 L (39.6-50.0) % Sodium 136 L (137-145) mmol/L Creatinine 0.5 L 0.54 L (0.6-1.5) mg/dL Calcium 7.5 L 7.7 L (8.7-10.3) mg/dL Total Protein 4.1 L 4.4 L (6.2-8.2) g/dL Albumin 2.0 L 2.0 L (3.8-4.9) g/dL Albumin/Globulin Ratio 0.95 L (1.60-3.17) Ratio Microbiology - Last 24 Hours (Table) 06/02/24 15:00 Anaerobic Culture - Final Other - Other Anaerobic Gm Negative Bacilli Anaerobic Gm Negative Bacilli#2
--- NOTE | 2024-06-06 15:23 | P.PN ---
Subjective Progress Note Date: 06/06/24 Principal diagnosis: Reason for follow-up is infected sacral pressure ulcer Patient is a 58-year-old male with a past medical history significant for dementia COVID-19 patient has been brought into the hospital for evaluation of mental status changes as the patient noted to have been more confused delirious and also noticed to have worsening of the wound to the sacral area probably this consultation.Patient is status post excisional debridement of his sacral pressure ulcer extending to the deep subcutaneous layer and muscular layer but not involving the bone On today's evaluation that is 06/06/2024, the patient continues to be afebrile, the patient is on room air and breathing comfortably, the Pt seemed slightly more awake and alert, not available historian no vomiting diarrhea and the changes reported by the nursing staff. Patient white count 6.42, creatinine 0.54 all culture mostly with anaerobes and Jeni albicans Objective - Vital Signs Vital signs: Vital Signs Temp 97.5 F L 06/06/24 07:38 Pulse 71 06/06/24 07:38 Resp 18 06/06/24 07:38 BP 107/70 06/06/24 07:38 Pulse Ox 90 L 06/06/24 07:38 FiO2 Intake & Output 06/05/24 06/06/24 06/06/24 18:59 06:59 18:59 Output Total 750 650 Balance -750 -650 Weight 65.771 kg Output: Urine 750 650 Other: Voiding Method Incontinent Incontinent Incontinent External Catheter External Catheter External Catheter # Voids 2 - Exam GENERAL DESCRIPTION: Middle-age male lying in bed in no distress RESPIRATORY SYSTEM: Unlabored breathing , decreased breath sounds at bases HEART: S1 S2 regular rate and rhythm , ABDOMEN: Soft , no tenderness, sacral wound is deep currently packed with silver dressing per wound care EXTREMITIES: No edema feet - Labs CBC & Chem 7: 06/06/24 04:31 06/06/24 04:24 Labs: Abnormal Lab Results - Last 24 Hours (Table) 06/06/24 06/06/24 Range/Units 04:24 04:31 RBC 3.77 L (4.40-5.60) X 10*6/uL Hgb 11.4 L (13.0-17.0) g/dL Hct 35.5 L (39.6-50.0) % Sodium 136 L (137-145) mmol/L Creatinine 0.54 L (0.66-1.25) mg/dL Calcium 7.7 L (8.4-10.2) mg/dL Total Protein 4.4 L (6.3-8.2) g/dL Albumin 2.0 L (3.5-5.0) g/dL Microbiology - Last 24 Hours (Table) 06/02/24 15:00 Anaerobic Culture - Final Other - Other Anaerobic Gm Negative Bacilli Anaerobic Gm Negative Bacilli#2 Assessment and Plan (1) Unstageable pressure ulcer of sacral region Current Visit: Yes Status: Acute Code(s): L89.150 - PRESSURE ULCER OF SACRAL REGION, UNSTAGEABLE SNOMED Code(s): 26837552347176605 (2) Leukocytosis Current Visit: Yes Status: Acute Code(s): D72.829 - ELEVATED WHITE BLOOD CELL COUNT, UNSPECIFIED SNOMED Code(s): 851356366 Plan: 1patient with unstageable sacral pressure ulcer with concern for fluctuation possible abscess will need to cover for polymicrobial riaz associated with such infection including gram-positive as well as gram-negative 2leukocytosis likely related to the infected sacral pressure ulcer 3patient has been eval by general surgery status post surgical debridement extending down to the muscular layer but not involving the bone 4patient initial culture grew ESBL and Jeni OR cultures are currently growing Jeni albicans 5patient is currently being treated with Invanz add oral Diflucan plan is for at least 4-week course of antibiotic therapy depending upon his clinical response Dictation was produced using [employer] dictation software. please excuse any grammatical, word or spelling errors. Time with Patient: Less than 30
[2024-06-07 03:38] VITALS: PULSE 70; TEMP 98.2
[2024-06-07 09:10] VITALS: BP 129/86
--- NOTE | 2024-06-07 09:33 | P.PN ---
Subjective Progress Note Date: 06/06/24 06/06/2024: Patient was seen for a follow-up. Patient is awake, smiling for no reason. Patient states unintelligible speech, like "crazy Daniel ". "If I will stop". 06/05/2024: Patient was seen for a follow-up. Patient is sleeping at this time. He appears comfortable. 06/04/2024: Patient was seen for follow-up. Patient is much more alert and awake. He denies headache. The nurse reports that he spit out his Depakote but was able to take his Haldol. Patient appears pleasant. Please refer to examination below. 06/03/2024: Patient was seen for a follow-up. Patient continues to be very confused, mumbling, delirious. No new change. 06/02/2024: Patient was initially seen by Dr. Carvajal. Please refer to her note for details. Patient is a 58-year-old male admitted with delirium with a pre-existing history of dementia. Patient has recent history of COVID-19 infection. Now has wound infection. Head CT showed severe atrophy. I personally reviewed CT head, agree with the findings. Patient's has mentioned that patient has memory difficulties going on for a few years now. He has seen neurologist and diagnosis of Alzheimer's type dementia has been made. In April 2024, patient developed a COVID infection. This occurred around Taylor time. After that patient's mentation declined significantly. At present patient has a wound infection which has continued to get worse despite antibiotic treatment. His mentation has worsened with worsening infection. Patient's reports that she is unable to care for him at home. Prior to infection the patient was able to walk and talk. He reportedly was quite agitated, running up and down stairs. He has been given prescription of Haldol and valproic acid for agitation. His mentioned that he was talking nonstop. The psychiatrist has seen the patient, who believes patient does not have Alzheimer's type dementia but has mental status change secondary to history of toxin exposure (paints). More recently, patient is u nable to walk, not eating. Patient appears to have significant dementia, very confused as per examination below. Objective - Vital Signs Vital signs: Vital Signs Temp 97.5 F L 06/06/24 14:00 Pulse 85 06/06/24 14:00 Resp 18 06/06/24 14:00 BP 114/72 06/06/24 14:00 Pulse Ox 91 L 06/06/24 14:00 FiO2 Intake & Output 06/05/24 06/06/24 06/06/24 18:59 06:59 18:59 Output Total 750 650 Balance -750 -650 Weight 65.771 kg Output: Urine 750 650 Other: Voiding Method Incontinent Incontinent Incontinent External Catheter External Catheter External Catheter # Voids 2 - Exam Patient is alert and awake. Smiling, mumbling, sometimes speaks clear words otherwise nonsensical speech. Patient does have sacral decubitus ulcer. The lumbar spine area is clear. Patient's tone is moderately increased bilaterally. No obvious resting tremors noted. - Labs CBC & Chem 7: 06/06/24 04:31 06/06/24 04:24 Labs: Abnormal Lab Results - Last 24 Hours (Table) 06/06/24 06/06/24 Range/Units 04:24 04:31 RBC 3.77 L (4.40-5.60) X 10*6/uL Hgb 11.4 L (13.0-17.0) g/dL Hct 35.5 L (39.6-50.0) % Sodium 136 L (137-145) mmol/L Creatinine 0.54 L (0.66-1.25) mg/dL Calcium 7.7 L (8.4-10.2) mg/dL Total Protein 4.4 L (6.3-8.2) g/dL Albumin 2.0 L (3.5-5.0) g/dL Microbiology - Last 24 Hours (Table) 06/01/24 05:18 Blood Culture - Final Blood 06/02/24 15:00 Anaerobic Culture - Final Other - Other Anaerobic Gm Negative Bacilli Anaerobic Gm Negative Bacilli#2 Assessment and Plan Assessment: 1. Delirium secondary to wound infection, COVID-19 infection, in the setting of baseline dementia 2. Dementia of uncertain etiology, appears advanced. 3. Wound infection (unstageable pressure ulcer of sacral region) with elevated white blood cell count Plan: 1. Primary team treatment of wound infection and other medical management. 2. Consider psychiatry evaluation 3. Consider placement 4. Hold sedative/benzodiazepines 5. EEG was abnormal due to background slowing of moderate degree. This is zapata ggestive of generalized cerebral dysfunction as can be seen with toxic metabolic encephalopathy or related to diffuse structural brain abnormality or perhaps some neurodegenerative process. Clinical correlation is recommended. No focal, lateralized or epileptiform activity was seen. 6. B12 745, RBC folate 599 which is normal. TSH normal 1.15. RPR negative. Patient's brought outside records from [facility], in which patient had GABRIEL scan on 12/20/2022, which was incomplete study. MRI of the brain without contrast performed on 03/18/2021 for "memory loss" revealed moderate brain atrophy predominating in the frontal lobe. I spoke to patient's on the phone. She mentions that patient has progressive loss of memory over the last 2 to 3 years. He used to paint since age 11 and did not use any mask or protective device. He stopped painting when he got sick 3 years ago. She is not sure if patient was exposed to these toxins that led to this dementia. He was also exposed to black mold. Patient has previously seen Dr. Garcia at [facility] who diagnosed him with Alzheimer's dementia. He is also seen neurologist at [facility] in [place]. He was tried on Aricept 10 mg which did not work, therefore it was stopped. Never tried on Namenda. Patient's denies any family history of dementia in his parents or grandparents. Patient started on Namenda 5 mg twice daily. Patient has received Lovenox 40 mg subcu today. Cannot have lumbar puncture today. We will perform an LP in the morning. Patient's gave the consent. Patient may benefit from Sinemet. Patient on Depakote, level 18.1. Patient currently on Invanz and Diflucan for wound infection. ID following.
[2024-06-07] MEDS ORDERED: LIDOCAINE 1% INJ 10MG/ML (20 ML MDV) SQ PRN (10:46)
--- NOTE | 2024-06-07 13:49 | P.PN ---
Subjective Progress Note Date: 06/07/24 Principal diagnosis: Reason for follow-up is infected sacral pressure ulcer Patient is a 58-year-old male with a past medical history significant for dementia COVID-19 patient has been brought into the hospital for evaluation of mental status changes as the patient noted to have been more confused delirious and also noticed to have worsening of the wound to the sacral area probably this consultation.Patient is status post excisional debridement of his sacral pressure ulcer extending to the deep subcutaneous layer and muscular layer but not involving the bone On today's evaluation that is 06/07/2024, patient did not have any fever and is currently breathing comfortably on room air in no distress patient was sleepy did not pass any question no vomiting diarrhea and the consult reported by the nursing staff. No new lab has been repeated today culture predominantly with anaerobes Jeni and ESBL E. coli Objective - Vital Signs Vital signs: Vital Signs Temp 98.2 F 06/07/24 02:00 Pulse 70 06/07/24 02:00 Resp 18 06/07/24 07:53 BP 129/86 06/07/24 07:53 Pulse Ox 80 L 06/07/24 02:00 FiO2 Intake & Output 06/06/24 06/07/24 06/07/24 18:59 06:59 18:59 Intake Total 900 Output Total 1800 Balance 900 -1800 Intake: Intake, IV Titration 900 Amount Dextrose 5%-0.45% NaCl 1, 900 000 ml @ 75 mls/hr IV . [id number] [facility] Rx#:[id number] Output: Urine 1800 Other: Voiding Method Incontinent External Catheter External Catheter # Bowel Movements 1 - Exam GENERAL DESCRIPTION: Middle-age male lying in bed in no distress RESPIRATORY SYSTEM: Unlabored breathing , decreased breath sounds at bases HEART: S1 S2 regular rate and rhythm , ABDOMEN: Soft , no tenderness, sacral wound is deep currently packed with silver dressing per wound care EXTREMITIES: No edema feet - Labs CBC & Chem 7: 06/06/24 04:31 06/06/24 04:24 Labs: Microbiology - Last 24 Hours (Table) 06/01/24 05:18 Blood Culture - Final Blood Assessment and Plan (1) Unstageable pressure ulcer of sacral region Current Visit: Yes Status: Acute Code(s): L89.150 - PRESSURE ULCER OF SACRAL REGION, UNSTAGEABLE SNOMED Code(s): 38503552953592805 (2) Leukocytosis Current Visit: Yes Status: Acute Code(s): D72.829 - ELEVATED WHITE BLOOD CELL COUNT, UNSPECIFIED SNOMED Code(s): 435402706 Plan: 1patient with unstageable sacral pressure ulcer with concern for fluctuation possible abscess will need to cover for polymicrobial riaz associated with such infection including gram-positive as well as gram-negative 2leukocytosis likely related to the infected sacral pressure ulcer 3patient has been eval by general surgery status post surgical debridement extending down to the muscular layer but not involving the bone 4patient initial culture grew ESBL and Jeni OR cultures are currently growing Jeni albicans and anaerobes 5patient will be advised a 4-week course of Invanz and 2-week course of oral Diflucan on discharge, this was discussed with MARINE ELECTRICIAN APPRENTICE for admitting team working on discharge Dictation was produced using iversity dictation software. please excuse any grammatical, word or spelling errors. Time with Patient: Less than 30
--- NOTE | 2024-06-07 14:18 | P.DS ---
Providers Date of admission: 06/02/24 10:01 Expected date of discharge: 06/07/24 Attending physician: Ofe Santiago MD Consults: 05/31/24 18:38 Consult Physician Routine Consulting Provider: Rosanna Carvajal Consult Reason/Comments: ams Do you want consulting provider notified?: Yes 06/01/24 02:14 Consult Physician Routine Consulting Provider: Radha Lema Consult Reason/Comments: necrotic intergluteal ulcer Do you want consulting provider notified?: Yes Primary care physician: Supriya Galarza [facility] Hospital Course: Discharge Diagnosis: Acute metabolic encephalopathy, believed to be secondary to infected sacral ulcer resulting in delirium with underlying dementia. ESBL E. coli and Jeni albicans infection of Large decubitus sacral ulcer. Dementia, suspect advanced dementia with acute delirium, secondary to above. Hospital course: Patient is a very pleasant 58-year-old male with a past medical history of Alzheimer's dementia and mental status change status post exposure to toxins/paints. He presented to the emergency department 05/31/2023 secondary to concerns of worsening altered mental status status post COVID-19 infection April 2024. Upon arrival to our facility, patient underwent evaluation in the emergency department. Vital signs upon arrival show blood pressure 95/82, heart rate 72, respiratory rate 18, temp 97.6 F, and SpO2 100% on room air. EKG completed showing normal sinus rhythm at 80 bpm with nonspecific T wave abnormalities. CT brain negative for acute intracranial process showing nonspecific white matter changes likely secondary to chronic small vessel ischemic disease. Chest x-ray negative for acute cardiopulmonary process. Labs completed and reviewed. CBC showing leukocytosis with WBC count of 13.1. Coagulation profile normal findings. BMP showing hypercarbia with bicarb of 34 and prerenal azotemia with BUN of 28. Blood glucose was 90. Magnesium 2.3. Liver profile unremarkable with the exception of hypoalbuminemia with albumin of 2.4. Troponin was negative at less than 0.012. Urinalysis negative for infection. Urine drug screen positive for benzodiazepines otherwise negative. Valproic acid subtherapeutic at 18.1. Patient was found to have a large sacral decubitus ulcer present on arrival. He was admitted under our services with consultation to neurology and general surgery. On 06/02/2024 patient underwent excisional debridement of sacral decubitus ulcer. Patient started on broad- spectrum antibiotics and infectious disease was consulted for management. Wound Culture from infected decubitus sacral ulcer positive for Jeni albicans and ESBL E. coli. Patient maintained on Invanz 1 g daily and Diflucan 200 mg daily. PICC line was placed and patient received authorization to go to [facility]. Patient is medically optimized and per infectious disease instructions prescription was sent for Invanz 1 g daily x 28 days and Diflucan 200 mg x 14 days. Physical exam: Vital signs reviewed and stable. General: Nontoxic, no distress and appears stated age. Derm: Skin warm and dry, normal coloration for ethnicity. Patient with dressing to sacrum status postdebridement of ulcer on 06/02/2024. Head: Atraumatic, normocephalic and symmetric. Eyes: EOM's intact, no lid lag, and anicteric sclera Mouth: no lip lesions, mucus membranes moist Cardiovascular: regular rate and rhythm with normal S1S2, no murmur, positive posterior tibial pulses bilaterally, and cap refill < 2 seconds. Lungs: Respirations even, regular, and unlabored on room air. Lungs CTA bilaterally, no rhonchi, no rales, no wheezing, and no accessory muscle usage. Abdominal: soft, nontender to palpation, no guarding, no appreciable organomegaly Ext: ROM intact. No gross muscle atrophy, no edema, no contractures Neuro: Speech clear, face symmetrical, GCS 14. Pt continuously repeating swear words similar to a Tourette's pattern. No noted tremors today. Psych: Alert and oriented to person only and confused to place, time, and situation. Patient following very limited commands. A total of 35 minutes of time were spent preparing this complex discharge summary. Pt was discharged on 06/07/2024 at 2:19 PM. Patient was seen independently by Nurse Practitioner. This document was prepared using [employer] dictation software. Please allow for errors in enologist while rare they do occur. Gabriel Gannon NP rendered care for this patient independently, reviewed the findings and plan as documented in the note above. I did not physically speak with or examine the patient on this date. Patient Condition at Discharge: Stable Plan - Discharge Summary Discharge Rx Participant: No New Discharge Prescriptions: New Fluconazole [Diflucan] 200 mg PO DAILY 14 Days #14 tab Memantine [Namenda] 5 mg PO BID 30 Days #60 tab Ertapenem [INVanz] 1 gm IVPB DAILY #28 each Continue FLUoxetine HCL [Sarafem] 60 mg PO MOTUWETHFR Valproic Acid Oral Soln [Depakene Syrup] 500 mg PO BID Haloperidol Oral Soln [Haldol Oral Soln] 2 mg PO DAILY Discontinued cefTRIAXone [Rocephin] 1 gm IM DAILY Discharge Medication List FLUoxetine HCL [Sarafem] 60 mg PO MOTUWETHFR 05/31/24 [History] Haloperidol Oral Soln [Haldol Oral Soln] 2 mg PO DAILY 05/31/24 [History] Valproic Acid Oral Soln [Depakene Syrup] 500 mg PO BID 05/31/24 [History] Memantine [Namenda] 5 mg PO BID 30 Days #60 tab 06/06/24 [Rx] Ertapenem [INVanz] 1 gm IVPB DAILY #28 each 06/07/24 [Rx] Fluconazole [Diflucan] 200 mg PO DAILY 14 Days #14 tab 06/07/24 [Rx] Follow up Appointment(s)/Referral(s): Manan Teran [NON-STAFF] - As Needed ProviderCATERINA [NON-STAFF] - 1-2 Days Radha Lema MD [STAFF PHYSICIAN] - 1 Week Patient Instructions/Handouts: How to Prevent Pressure Injuries (DC), Extended Spectrum Beta Lactamase (GEN), Altered Mental Status (ED), Encephalopathy (DC), Chronic Wounds (DC) Activity/Diet/Wound Care/Special Instructions: Activity: As tolerated. Requires assistance, please turn and offload off of sacral ulcer. Diet: Regular diet. Encourage proteien supplement such as Ensure or Premeire Protein 3x daily between meals. Special Instructions: Wound Care : Apply absorptive silver rope collagen saline moistened gauze, bordered foam. Change Tuesdays, , and Saturdays and as needed if contaminated. Check depakote level in one week due to currently being on depakote along with IV Invanz IV antibiotics with Invanz being managed by infectious disease physician, Dr. Lema per his instructions prescription was provided for Invanz 1 g daily x 4 weeks (28 days) along with fluconazole 200 mg daily x 10 days.. Thank you for allowing us to participate in your care, it was truly a pleasure having you for our patient!!! Discharge Disposition: TRANSFER TO SNF/ECF
[2024-06-07 15:11] LABS: Appearance,CSF Clear; CSF Tube Number 2
[2024-06-07 15:15] LABS: Glucose,CSF 41 mg/dL (40-70); Total Protein,CSF 126 mg/dL (12-60)
[2024-06-07 15:42] LABS: Nucleated Cells, CSF 1 u/L (0-5); Red Blood Cell,CSF 32 u/L (0-10)
[2024-06-07 15:43] LABS: Red Blood Cell, CSF Crenated 0 %; Red Blood Cell, CSF Fresh 100 %
--- NOTE | 2024-06-08 10:56 | P.PN ---
Subjective Progress Note Date: 06/07/24 06/07/2024: Patient was seen for follow-up. Patient's Nirmala was also present. Patient is alert and awake, smiling. When he saw the nurse coming, states "There she is !". When I asked who she is, states "#2". Patient then rambles and often makes no sense with poor content. 06/06/2024: Patient was seen for a follow-up. Patient is awake, smiling for no reason. Patient states unintelligible speech, like "crazy Daniel ". "If I will stop". 06/05/2024: Patient was seen for a follow-up. Patient is sleeping at this time. He appears comfortable. 06/04/2024: Patient was seen for follow-up. Patient is much more alert and a wake. He denies headache. The nurse reports that he spit out his Depakote but was able to take his Haldol. Patient appears pleasant. Please refer to examination below. 06/03/2024: Patient was seen for a follow-up. Patient continues to be very confused, mumbling, delirious. No new change. 06/02/2024: Patient was initially seen by Dr. Carvajal. Please refer to her note for details. Patient is a 58-year-old male admitted with delirium with a pre-existing history of dementia. Patient has recent history of COVID-19 infection. Now has wound i nfection. Head CT showed severe atrophy. I personally reviewed CT head, agree with the findings. Patient's has mentioned that patient has memory difficulties going on for a few years now. He has seen neurologist and diagnosis of Alzheimer's type dementia has been made. In April 2024, patient developed a COVID infection. This occurred around Taylor time. After that patient's mentation declined significantly. At present patient has a wound infection which has continued to get worse despite antibiotic treatment. His mentation has worsened with worsening infection. Patient's reports that she is unable to care for him at home. Prior to infection the patient was able to walk and talk. He reportedly was quite agitated, running up and down stairs. He has been given prescription of Haldol and valproic acid for agitation. His mentioned that he was talking nonstop. The psychiatrist has seen the patient, who believes patient does not have Alzheimer's type dementia but has mental status change secondary to history of toxin exposure (paints). More recently, patient is unable to walk, not eating. Patient appears to have significant dementia, very confused as per examination below. Objective - Vital Signs Vital signs: Vital Signs Temp 98.2 F 06/07/24 02:00 Pulse 70 06/07/24 02:00 Resp 18 06/07/24 07:53 BP 129/86 06/07/24 07:53 Pulse Ox 80 L 06/07/24 02:00 FiO2 Intake & Output 06/06/24 06/07/24 06/07/24 18:59 06:59 18:59 Intake Total 900 Output Total 1800 Balance 900 -1800 Intake: Intake, IV Titration 900 Amount Dextrose 5%-0.45% NaCl 1, 900 000 ml @ 75 mls/hr IV . [id number] [facility] Rx#:[id number] Output: Urine 1800 Other: Voiding Method Incontinent External Catheter External Catheter # Bowel Movements 1 - Exam Patient is alert and awake. Smiling, mumbling, sometimes speaks clear words otherwise nonsensical speech. Patient does have sacral decubitus ulcer. The lumbar spine area is clear. Patient's tone is moderately increased bilaterally. No obvious resting tremors noted. - Labs CBC & Chem 7: 06/06/24 04:31 06/06/24 04:24 Labs: Microbiology - Last 24 Hours (Table) 06/01/24 05:18 Blood Culture - Final Blood Assessment and Plan Assessment: 1. Delirium secondary to wound infection, COVID-19 infection, in the setting of baseline dementia 2. Advanced dementia, possible Alzheimer's type. Rule out other causes like CJD. 3. Wound infection (unstageable pressure ulcer of sacral region) with elevated white blood cell count Plan: 1. Primary team treatment of wound infection and other medical management. Patient on Invanz and Diflucan. 2. Consider psychiatry evaluation 3. Consider placement 4. Hold sedative/benzodiazepines 5. EEG was abnormal due to background slowing of moderate degree. This is suggestive of generalized cerebral dysfunction as can be seen with toxic metabolic encephalopathy or related to diffuse structural brain abnormality or perhaps some neurodegenerative process. Clinical correlation is recommended. No focal, lateralized or epileptiform activity was seen. 6. B12 745, RBC folate 599 which is normal. TSH normal 1.15. RPR negative. Patient's brought outside records from [facility], in which patient had GABRIEL scan on 12/20/2022, which was incomplete study. MRI of the brain without contrast performed on 03/18/2021 for "memory loss" revealed moderate brain atrophy predominating in the frontal lobe. Patient also had a PET scan of the brain done at [facility], the result of which is unavailable. I spoke to patient's on the phone. She mentions that patient has progressive loss of memory over the last 2 to 3 years. He used to paint since age 11 and did not use any mask or protective device. He stopped painting when he got sick 3 years ago. She is not sure if patient was exposed to these toxins that led to this dementia. He was also exposed to black mold. Patient has previously seen Dr. Garcia at [facility] who diagnosed him with Alzheimer's dementia. He is also seen neurologist at [facility] in [place]. He was tried on Aricept 10 mg which did not work, therefore it was stopped. Never tried on Namenda. Patient's denies any family history of dementia in his parents or grandparents. Patient started on Namenda 5 mg twice daily, tolerating it well. Lumbar puncture will be performed today. Patient may benefit from Sinemet. Patient on Depakote, level 18.1. Addendum: Cerebrospinal fluid showed: WBC 1, RBC 32, CSF protein 126 (12-60), CSF glucose 41 (40-70). Gram stain showed rare polymorphonuclear leukocytes. No organisms seen. Discussed with ID, patient cleared for discharge. Elevated proteins is of unclear etiology. Awaiting protein 143-3, comprehensive viral detection We will also add CSF for cryptococcal antigen, fungal cultures and MS panel.
--- NOTE | 2024-06-08 11:28 | P.PCN ---
Date of Procedure: 06/07/24 Preoperative Diagnosis: Dementia, rule out CJD Postoperative Diagnosis: Advanced dementia, rule out CJD Procedure(s) Performed: Lumbar puncture Anesthesia: local Surgeon: Bharati Reed Estimated Blood Loss (ml): 0 Condition: stable Disposition: floor Indications for Procedure: Rule out meningitis, encephalitis, CJD Description of Procedure: Informed consent was obtained from patient's . Very detailed risks and benefits of the procedure, and the indication of procedure was explained to them in the presence of nurse. She was informed of the risk of infection, bleeding, numbness, back pain, and the features of post spinal headache and the treatment. Patient was placed in the left lateral recumbent position. The procedure was performed under strict aseptic conditions. L4 lumbar space was identified and marked. Low back region was sterilized with ChloraPrep and then with Betadine, and anesthetized with 1% lidocaine. A spinal needle 20-gauge, 3.5 inch inserted at L4 lumbar space. I was able to enter subarachnoid space in 2nd pass. The spinal fluid was very mildly traumatic, but then cleared up in the second and subsequent tubes. Opening pressure was not checked. About 7-8 cc of spinal fluid was collected in 4 tubes. The flow of spinal fluid was extremely slow, therefore took at least 15 minutes to collect the fluid. Stylette was reintroduced, spinal needle withdrawn. Band-Aid applied. Patient was recommended to lay flat for half an hour. Patient tolerated the procedure very well.
== END 2024-06-07 18:57 | DRG 570 ==
LOC: EC 15:50 → 4SSUR 18:38 → OBSVTOIN 06-02 10:01
PROVIDERS: ADMIT Internal Medicine; ATTEND Internal Medicine
PROC: 0JB70ZZ Excision of Back Subcutaneous Tissue and Fascia, Open Approach (ICD-10-PCS; principal; 2024-06-02 11:05)
PROC: 4A10X4Z Monitoring of Central Nervous Electrical Activity, External Approach (ICD-10-PCS; 2024-06-03)
PROC: 05HB33Z Insertion of Infusion Device into Right Basilic Vein, Percutaneous Approach (ICD-10-PCS; 2024-06-03)
PROC: 009U3ZX Drainage of Spinal Canal, Percutaneous Approach, Diagnostic (ICD-10-PCS; 2024-06-07)
PROC: B01B1ZZ Fluoroscopy of Spinal Cord using Low Osmolar Contrast (ICD-10-PCS; 2024-06-07)
DX: L89.153 Pressure ulcer of sacral region, stage 3 (principal); G93.41 Metabolic encephalopathy; F05 Delirium due to known physiological condition; E88.09 Other disorders of plasma-protein metabolism, not elsewhere classified; E87.6 Hypokalemia; D72.829 Elevated white blood cell count, unspecified; B96.20 Unspecified Escherichia coli [E. coli] as the cause of diseases classified elsewhere; B37.2 Candidiasis of skin and nail; G30.9 Alzheimer's disease, unspecified; F13.90 Sedative, hypnotic, or anxiolytic use, unspecified, uncomplicated; F02.80 Dementia in other diseases classified elsewhere, unspecified severity, without behavioral disturbance, psychotic disturbance, mood disturbance, and anxiety; Z86.16 Personal history of COVID-19; Z79.899 Other long term (current) drug therapy
CPT/HCPCS: 36415; 36573; 70450; 71046; 80048; 80053; 80164; 80202; 80306; 80320; 81001; 82040; 82042; 82140; 82565; 82607; 82747; 82784; 82945; 83735; 83916; 84100; 84157; 84443; 84484; 85025; 85027; 85610; 85730; 86780; 87040; 87070; 87075; 87077; 87102; 87186; 87205; 87496; 87498; 87529; 87798; 89050; 93005; 95816; 96360; 96361; 99285

== ENCOUNTER 2024-11-16 00:08 | Observation (INO) | payer OTHER ==
[2024-11-16 00:45] LABS: Glucose,Whole Blood 107 mg/dL (70-110)
[2024-11-16 00:46] LABS: Basophils # (A) 0.06 10*3/uL (0.00-0.10); Basophils % (A) 1.0 %; Eosinophils # (A) 0.11 10*3/uL (0.04-0.35); Eosinophils % (A) 1.8 %; HCT 43.6 % (39.6-50.0); HGB 15.3 g/dL (13.0-17.0); Lymphocytes # (A) 1.49 10*3/uL (0.90-5.00); Lymphocytes % (A) 24.1 %; MCH 30.8 pg (27.0-32.0); MCHC 35.1 g/dL (32.0-37.0); MCV 87.7 fL (80.0-97.0); Monocytes # (A) 0.48 10*3/uL (0.20-1.00); Monocytes % (A) 7.8 %; Neutrophils # (A) 4.04 10*3/uL (1.80-7.70); Neutrophils % (A) 65.1 %; Platelet Count 206 10*3/uL (140-440); RBC 4.97 10*6/uL (4.40-5.60); RDW 12.2 % (11.5-14.5); WBC 6.19 10*3/uL (4.50-10.00)
--- NOTE | 2024-11-16 00:53 | ED ---
Altered Mental Status HPI - General Chief Complaint: Altered Mental Status Stated Complaint: AMS Time Seen by Provider: 11/16/24 00:19 Source: EMS Mode of arrival: EMS Limitations: altered mental status - History of Present Illness Initial Comments: This patient is a 59-year-old man reportedly with history of dementia, here to have evaluation for altered mental status. The history is from the patient's who states that he has been less active than usual. She states that he will often sit and stare off. He has recently had medication change. The patient is given valproic acid reportedly for mood and this was increased to 7.5 mL twice per day he was previously taking 5 mL twice per day. Patient's states that he also had possibly fallen. She states that he was sitting on the edge of a tub, she went to get something and heard him cry out. When she came back he was hanging onto the edge of the tub and he was sitting with his butto cks lowered over the edge. She is not believe he fell back but states that it is possible he did. MD Complaint: altered mental status -: days(s) Consistency of Symptoms: getting worse Context: change in medication Associated Symptoms: denies other symptoms - Related Data Home Medications Medication Instructions Recorded Confirmed FLUoxetine HCL [Sarafem] 60 mg PO MOTUWETHFR 05/31/24 11/16/24 Valproic Acid Oral Soln [Depakene 375 mg PO BID 05/31/24 11/16/24 Syrup] Ammonium Lactate [Amlactin] 1 applic TOPICAL DAILY 11/16/24 11/16/24 Memantine [Namenda] 5 mg PO DAILY 11/16/24 11/16/24 Nystatin 100,000 Unit/gm Powd 1 applic TOPICAL BID PRN 11/16/24 11/16/24 [Mycostatin Powder] Allergies Allergy/AdvReac Type Severity Reaction Status Date / Time No Known Allergies Allergy Verified 06/02/24 13:01 Review of Systems ROS Statement: Those systems with pertinent positive or pertinent negative responses have been documented in the HPI. ROS Other: All systems not noted in ROS Statement are negative. Constitutional: Denies: fever, chills Respiratory: Denies: cough, dyspnea Cardiovascular: Denies: orthopnea, edema, syncope Gastrointestinal: Denies: vomiting, diarrhea, constipation Genitourinary: Denies: hematuria Musculoskeletal: Denies: joint swelling, arthralgia Skin: Denies: rash Neurological: Denies: weakness Past Medical History Past Medical History: Dementia Additional Past Medical History / Comment(s): Alzheimers History of Any Multi-Drug Resistant Organisms: Unobtainable Date of last positivie culture/infection: 06/01/24 MDRO Source:: buttock Additional Past Surgical History / Comment(s): eye surgery metal flake removed from eye in past Past Psychological History: Unable to Obtain Smoking Status: Unknown if ever smoked Past Alcohol Use History: Unable to Obtain Past Drug Use History: Unable to Obtain General Exam Limitations: altered mental status General appearance: alert, in no apparent distress Head exam: Present: atraumatic, normocephalic, normal inspection Eye exam: Present: normal appearance, PERRL. Absent: scleral icterus, conjunctival injection, nystagmus Neck exam: Present: normal inspection, full ROM. Absent: tenderness Respiratory exam: Present: normal lung sounds bilaterally. Absent: respiratory distress, wheezes, rales, rhonchi, stridor, accessory muscle use Cardiovascular Exam: Present: normal rhythm, bradycardia, normal heart sounds. Absent: systolic murmur, diastolic murmur, rubs, gallop GI/Abdominal exam: Present: soft. Absent: distended, tenderness, guarding, rebound, rigid, mass Extremities exam: Present: normal inspection, full ROM, normal capillary refill. Absent: tenderness Back exam: Present: normal inspection. Absent: CVA tenderness (R), CVA tenderness (L), vertebral tenderness Neurological exam: Present: alert. Absent: motor sensory deficit Skin exam: Present: warm, dry, intact, normal color. Absent: rash Course Vital Signs 11/16/24 11/16/24 11/16/24 00:10 02:10 03:14 Temperature 96.6 F L Pulse Rate 56 L 73 68 Pulse Rate [ Pulse Oximetery ] Respiratory 18 18 16 Rate Blood Pressure 111/92 111/72 115/68 Blood Pressure [Right Arm] O2 Sat by Pulse 97 100 94 L Oximetry 11/16/24 11/16/24 11/16/24 05:00 08:53 10:06 Temperature 97.8 F Pulse Rate 59 L 57 L Pulse Rate [ 63 Pulse Oximetery ] Respiratory 17 18 16 Rate Blood Pressure 115/74 131/86 Blood Pressure 127/76 [Right Arm] O2 Sat by Pulse 98 92 L Oximetry Medical Decision Making - Medical Decision Making The patient had CT of the brain that I interpreted as negative for acute intracranial hemorrhage, negative for mass effect or midline shift. The patient had chest x-ray that I interpreted as negative for acute infiltrate, pneumothorax, congestive heart failure Was pt. sent in by a medical professional or institution (F[facility] Arriola, LOGISTICS PROJECT MANAGER, urgent care, hospital, or jail...) When possible be specific @ -[Yes, patient sent from [facility] for further evaluation Did you speak to anyone other than the patient for history (EMS, parent, family, police, friend...)? What history was obtained from this source @ -[No] Did you review nursing and triage notes (agree or disagree)? Why? @ -[I reviewed and agree with nursing and triage notes] Were old charts reviewed (outside hosp., previous admission, EMS record, old EKG, old radiological studies, urgent care reports/EKG's, jail records)? Report findings @ -[No old charts were reviewed] Differential Diagnosis (chest pain, altered mental status, abdominal pain women, abdominal pain men, vaginal bleeding, weakness, fever, dyspnea, syncope, headache, dizziness, GI bleed, back pain, seizure, CVA, palpatations, mental health, musculoskeletal)? @ -[Differential Altered Mental Status: Hypoglycemia, DKA, hypercapnia, ETOH, overdose, CO poisoning, trauma, myxedema coma, HTN encephalopathy, infection, encephalitis, psychosis, intercranial hemorrhage, hepatic encephalopathy, meningitis, CVA, this is not meant to be an all-inclusive list EKG interpreted by me (3pts min.). @ -[I interpreted as above] X-rays interpreted by me (1pt min.). @ -[I interpreted as above CT interpreted by me (1pt min.). @ -[I interpreted as above U/S interpreted by me (1pt. min.). @ -[None done] What testing was considered but not performed or refused? (CT, X-rays, U/S, labs)? Why? @ -[None] What meds were considered but not given or refused? Why? @ -[None] Did you discuss the management of the patient with other professionals (professionals i.e. FISH Arriola, LOGISTICS PROJECT MANAGER, lab, RT, psych nurse, social media intern, python programmer, teacher, chemistry technical officer, machine adjuster leader case trim)? Give summary @ -[No] Was smoking cessation discussed for >3mins.? @ -[No] Was critical care preformed (if so, how long)? @ -[No] Were there social determinants of health that impacted care today? How? (Homelessness, low income, unemployed, alcoholism, drug addiction, transportation, low edu. Level, literacy, decrease access to med. care, [place] [facility], rehab)? @ -[No] Was there de-escalation of care discussed even if they declined (Discuss DNR or withdrawal of care, Hospice)? DNR status @ -[No] What co-morbidities impacted this encounter? (DM, HTN, Smoking, COPD, CAD, Cancer, CVA, ARF, Chemo, Hep., AIDS, mental health diagnosis, sleep apnea, morbid obesity)? @ -[None] Was patient admitted / discharged? Hospital course, mention meds given and route, prescriptions, significant lab abnormalities, going to OR and other pertinent info. @ -[Patient is 59-year-old man with history of dementia brought to have further evaluation for altered mental status. Patient will be admitted for further e valuation and treatment. Undiagnosed new problem with uncertain prognosis? @ -[No] Drug Therapy requiring intensive monitoring for toxicity (Heparin, Nitro, Insulin, Cardizem)? @ -[No] Were any procedures done? @ -[No] Diagnosis/symptom? @ -[Acute altered mental status Acute, or Chronic, or Acute on Chronic? @ -[Acute Uncomplicated (without systemic symptoms) or Complicated (systemic symptoms)? @ -[Uncomplicated Side effects of treatment? @ -[No] Exacerbation, Progression, or Severe Exacerbation? @ -[No] Poses a threat to life or bodily function? How? (Chest pain, [place], [place], pneumonia, PE, COPD, DKA, ARF, appy, cholecystitis, CVA, Diverticulitis, Homicidal, Suicidal, threat to staff... and all critical care pts) @ -[No] All treatments are based on ideal body weight as in ED triage - Lab Data Result diagrams: 11/16/24 00:39 11/16/24 00:39 Lab Results 11/16/24 11/16/24 11/16/24 Range/Units 00:39 00:39 00:39 WBC 6.19 (4.50-10.00) 10*3/uL RBC 4.97 (4.40-5.60) 10*6/uL Hgb 15.3 (13.0-17.0) g/dL Hct 43.6 (39.6-50.0) % MCV 87.7 (80.0-97.0) fL MCH 30.8 (27.0-32.0) pg MCHC 35.1 (32.0-37.0) g/dL Plt Count 206 (140-440) 10*3/uL MPV 10.2 (9.5-12.2) fL Immature Gran % (Auto) 0.2 % Neutrophils % 65.1 % Lymphocytes % 24.1 % Monocytes % 7.8 % Eosinophils % 1.8 % Basophils % 1.0 % Immature Gran # 0.01 (0.00-0.04) 10*3/uL Neutrophils # 4.04 (1.80-7.70) 10*3/uL Lymphocytes # 1.49 (0.90-5.00) 10*3/uL Monocytes # 0.48 (0.20-1.00) 10*3/uL Eosinophils # 0.11 (0.04-0.35) 10*3/uL Basophils # 0.06 (0.00-0.10) 10*3/uL PT 11.4 (10.0-12.5) sec INR 1.0 (<1.2) APTT 23.2 (22.0-30.0) sec Sodium 142 (137-145) mmol/L Potassium 3.5 (3.5-5.1) mmol/L Chloride 107 (98-107) mmol/L Carbon Dioxide 23 (22-30) mmol/L Anion Gap 12 mmol/L BUN 16 (9-20) mg/dL Creatinine 0.73 (0.66-1.25) mg/dL Est GFR (CKD-EPI)AfAm >90 (>60 ml/min/1.73 sqM) Est GFR (CKD-EPI)NonAf >90 (>60 ml/min/1.73 sqM) Glucose 89 (74-99) mg/dL POC Glucose (mg/dL) (70-110) mg/dL POC Glu Customer Resolution Specialist ID Calcium 9.8 (8.4-10.2) mg/dL Magnesium (1.6-2.3) mg/dL Total Bilirubin 0.7 (0.2-1.3) mg/dL AST 23 (17-59) U/L ALT 24 (4-49) U/L Alkaline Phosphatase 61 (38-126) U/L Ammonia (<30) umol/L Troponin I (0.000-0.034) ng/mL Total Protein 6.8 (6.3-8.2) g/dL Albumin 4.3 (3.5-5.0) g/dL TSH (0.465-4.680) mIU/L Urine Color Urine Appearance (Clear) Urine pH (5.0-8.0) Ur Specific [place] (1.001-1.035) Urine Protein (Negative) Urine Glucose (UA) (Negative) Urine Ketones (Negative) Urine Blood (Negative) Urine Nitrite (Negative) Urine Bilirubin (Negative) Urine Urobilinogen (<2.0) mg/dL Ur Leukocyte Esterase (Negative) Urine Opiates Screen (NotDetected) Ur Oxycodone Screen (NotDetected) Urine Methadone Screen (NotDetected) Ur Barbiturates Screen (NotDetected) Valproic Acid ug/mL U Tricyclic Antidepress (NotDetected) Ur Phencyclidine Scrn (NotDetected) Ur Amphetamines Screen (NotDetected) U Methamphetamines Scrn (NotDetected) U Benzodiazepines Scrn (NotDetected) Urine Cocaine Screen (NotDetected) U Marijuana (THC) Screen (NotDetected) Serum Alcohol <10 mg/dL 11/16/24 11/16/24 11/16/24 Range/Units 00:39 00:39 00:39 WBC (4.50-10.00) 10*3/uL RBC (4.40-5.60) 10*6/uL Hgb (13.0-17.0) g/dL Hct (39.6-50.0) % MCV (80.0-97.0) fL MCH (27.0-32.0) pg MCHC (32.0-37.0) g/dL Plt Count (140-440) 10*3/uL MPV (9.5-12.2) fL Immature Gran % (Auto) % Neutrophils % % Lymphocytes % % Monocytes % % Eosinophils % % Basophils % % Immature Gran # (0.00-0.04) 10*3/uL Neutrophils # (1.80-7.70) 10*3/uL Lymphocytes # (0.90-5.00) 10*3/uL Monocytes # (0.20-1.00) 10*3/uL Eosinophils # (0.04-0.35) 10*3/uL Basophils # (0.00-0.10) 10*3/uL PT (10.0-12.5) sec INR (<1.2) APTT (22.0-30.0) sec Sodium (137-145) mmol/L Potassium (3.5-5.1) mmol/L Chloride (98-107) mmol/L Carbon Dioxide (22-30) mmol/L Anion Gap mmol/L BUN (9-20) mg/dL Creatinine (0.66-1.25) mg/dL Est GFR (CKD-EPI)AfAm (>60 ml/min/1.73 sqM) Est GFR (CKD-EPI)NonAf (>60 ml/min/1.73 sqM) Glucose (74-99) mg/dL POC Glucose (mg/dL) (70-110) mg/dL POC Glu Customer Resolution Specialist ID Calcium (8.4-10.2) mg/dL Magnesium (1.6-2.3) mg/dL Total Bilirubin (0.2-1.3) mg/dL AST (17-59) U/L ALT (4-49) U/L Alkaline Phosphatase (38-126) U/L Ammonia <9 (<30) umol/L Troponin I <0.012 (0.000-0.034) ng/mL Total Protein (6.3-8.2) g/dL Albumin (3.5-5.0) g/dL TSH (0.465-4.680) mIU/L Urine Color Urine Appearance (Clear) Urine pH (5.0-8.0) Ur Specific [place] (1.001-1.035) Urine Protein (Negative) Urine Glucose (UA) (Negative) Urine Ketones (Negative) Urine Blood (Negative) Urine Nitrite (Negative) Urine Bilirubin (Negative) Urine Urobilinogen (<2.0) mg/dL Ur Leukocyte Esterase (Negative) Urine Opiates Screen (NotDetected) Ur Oxycodone Screen (NotDetected) Urine Methadone Screen (NotDetected) Ur Barbiturates Screen (NotDetected) Valproic Acid 67.3 ug/mL U Tricyclic Antidepress (NotDetected) Ur Phencyclidine Scrn (NotDetected) Ur Amphetamines Screen (NotDetected) U Methamphetamines Scrn (NotDetected) U Benzodiazepines Scrn (NotDetected) Urine Cocaine Screen (NotDetected) U Marijuana (THC) Screen (NotDetected) Serum Alcohol mg/dL 11/16/24 11/16/24 11/16/24 Range/Units 00:39 00:42 01:35 WBC (4.50-10.00) 10*3/uL RBC (4.40-5.60) 10*6/uL Hgb (13.0-17.0) g/dL Hct (39.6-50.0) % MCV (80.0-97.0) fL MCH (27.0-32.0) pg MCHC (32.0-37.0) g/dL Plt Count (140-440) 10*3/uL MPV (9.5-12.2) fL Immature Gran % (Auto) % Neutrophils % % Lymphocytes % % Monocytes % % Eosinophils % % Basophils % % Immature Gran # (0.00-0.04) 10*3/uL Neutrophils # (1.80-7.70) 10*3/uL Lymphocytes # (0.90-5.00) 10*3/uL Monocytes # (0.20-1.00) 10*3/uL Eosinophils # (0.04-0.35) 10*3/uL Basophils # (0.00-0.10) 10*3/uL PT (10.0-12.5) sec INR (<1.2) APTT (22.0-30.0) sec Sodium (137-145) mmol/L Potassium (3.5-5.1) mmol/L Chloride (98-107) mmol/L Carbon Dioxide (22-30) mmol/L Anion Gap mmol/L BUN (9-20) mg/dL Creatinine (0.66-1.25) mg/dL Est GFR (CKD-EPI)AfAm (>60 ml/min/1.73 sqM) Est GFR (CKD-EPI)NonAf (>60 ml/min/1.73 sqM) Glucose (74-99) mg/dL POC Glucose (mg/dL) 107 (70-110) mg/dL POC Glu Customer Resolution Specialist ID Irma Taylor Calcium (8.4-10.2) mg/dL Magnesium 2.0 (1.6-2.3) mg/dL Total Bilirubin (0.2-1.3) mg/dL AST (17-59) U/L ALT (4-49) U/L Alkaline Phosphatase (38-126) U/L Ammonia (<30) umol/L Troponin I (0.000-0.034) ng/mL Total Protein (6.3-8.2) g/dL Albumin (3.5-5.0) g/dL TSH 4.500 (0.465-4.680) mIU/L Urine Color Urine Appearance (Clear) Urine pH (5.0-8.0) Ur Specific [place] (1.001-1.035) Urine Protein (Negative) Urine Glucose (UA) (Negative) Urine Ketones (Negative) Urine Blood (Negative) Urine Nitrite (Negative) Urine Bilirubin (Negative) Urine Urobilinogen (<2.0) mg/dL Ur Leukocyte Esterase (Negative) Urine Opiates Screen Not Detected (NotDetected) Ur Oxycodone Screen Not Detected (NotDetected) Urine Methadone Screen Not Detected (NotDetected) Ur Barbiturates Screen Not Detected (NotDetected) Valproic Acid ug/mL U Tricyclic Antidepress Not Detected (NotDetected) Ur Phencyclidine Scrn Not Detected (NotDetected) Ur Amphetamines Screen Not Detected (NotDetected) U Methamphetamines Scrn Not Detected (NotDetected) U Benzodiazepines Scrn Detected H (NotDetected) Urine Cocaine Screen Not Detected (NotDetected) U Marijuana (THC) Screen Not Detected (NotDetected) Serum Alcohol mg/dL 11/16/24 Range/Units 01:35 WBC (4.50-10.00) 10*3/uL RBC (4.40-5.60) 10*6/uL Hgb (13.0-17.0) g/dL Hct (39.6-50.0) % MCV (80.0-97.0) fL MCH (27.0-32.0) pg MCHC (32.0-37.0) g/dL Plt Count (140-440) 10*3/uL MPV (9.5-12.2) fL Immature Gran % (Auto) % Neutrophils % % Lymphocytes % % Monocytes % % Eosinophils % % Basophils % % Immature Gran # (0.00-0.04) 10*3/uL Neutrophils # (1.80-7.70) 10*3/uL Lymphocytes # (0.90-5.00) 10*3/uL Monocytes # (0.20-1.00) 10*3/uL Eosinophils # (0.04-0.35) 10*3/uL Basophils # (0.00-0.10) 10*3/uL PT (10.0-12.5) sec INR (<1.2) APTT (22.0-30.0) sec Sodium (137-145) mmol/L Potassium (3.5-5.1) mmol/L Chloride (98-107) mmol/L Carbon Dioxide (22-30) mmol/L Anion Gap mmol/L BUN (9-20) mg/dL Creatinine (0.66-1.25) mg/dL Est GFR (CKD-EPI)AfAm (>60 ml/min/1.73 sqM) Est GFR (CKD-EPI)NonAf (>60 ml/min/1.73 sqM) Glucose (74-99) mg/dL POC Glucose (mg/dL) (70-110) mg/dL POC Glu Customer Resolution Specialist ID Calcium (8.4-10.2) mg/dL Magnesium (1.6-2.3) mg/dL Total Bilirubin (0.2-1.3) mg/dL AST (17-59) U/L ALT (4-49) U/L Alkaline Phosphatase (38-126) U/L Ammonia (<30) umol/L Troponin I (0.000-0.034) ng/mL Total Protein (6.3-8.2) g/dL Albumin (3.5-5.0) g/dL TSH (0.465-4.680) mIU/L Urine Color Yellow Urine Appearance Clear (Clear) Urine pH 5.5 (5.0-8.0) Ur Specific [place] 1.022 (1.001-1.035) Urine Protein Negative (Negative) Urine Glucose (UA) Negative (Negative) Urine Ketones 1+ H (Negative) Urine Blood Negative (Negative) Urine Nitrite Negative (Negative) Urine Bilirubin Negative (Negative) Urine Urobilinogen <2.0 (<2.0) mg/dL Ur Leukocyte Esterase Negative (Negative) Urine Opiates Screen (NotDetected) Ur Oxycodone Screen (NotDetected) Urine Methadone Screen (NotDetected) Ur Barbiturates Screen (NotDetected) Valproic Acid ug/mL U Tricyclic Antidepress (NotDetected) Ur Phencyclidine Scrn (NotDetected) Ur Amphetamines Screen (NotDetected) U Methamphetamines Scrn (NotDetected) U Benzodiazepines Scrn (NotDetected) Urine Cocaine Screen (NotDetected) U Marijuana (THC) Screen (NotDetected) Serum Alcohol mg/dL - EKG Data -: EKG Interpreted by Me EKG shows normal: sinus rhythm, axis (Normal), intervals (Normal), QRS complexes (Normal), ST-T waves Rate: bradycardia (Rate 58 bpm) Disposition Clinical Impression: Altered mental status Disposition: ADMITTED IP TO THIS [facility] Condition: Stable Is patient prescribed a controlled substance at d/c from ED?: No
[2024-11-16 01:02] LABS: ALT 24 U/L (4-49); AST 23 U/L (17-59); African American GFR (CKD) >90 (>60 ml/min/1.73 sqM); Albumin 4.3 g/dL (3.5-5.0); Alkaline Phosphatase 61 U/L (38-126); Anion Gap 12 mmol/L; Blood Urea Nitrogen 16 mg/dL (9-20); Calcium 9.8 mg/dL (8.4-10.2); Carbon Dioxide 23 mmol/L (22-30); Chloride 107 mmol/L (98-107); Glucose 89 mg/dL (74-99); Non-African American GFR(CKD) >90 (>60 ml/min/1.73 sqM); Potassium 3.5 mmol/L (3.5-5.1); Sodium 142 mmol/L (137-145); Total Protein 6.8 g/dL (6.3-8.2)
[2024-11-16 01:07] LABS: INR 1.0 (<1.2); Partial Thromboplastin Time 23.2 sec (22.0-30.0); Prothrombin Time 11.4 sec (10.0-12.5)
--- NOTE | 2024-11-16 01:56 | CT ---
EXAM: CT Head Without Intravenous Contrast CLINICAL HISTORY: ITS.REASON CT Reason: Altered mental status TECHNIQUE: Axial computed tomography images of the head/brain without intravenous contrast. CTDI is 49.2 mGy and DLP is 1112.4 mGy-cm. This CT exam was performed using one or more of the following dose reduction techniques: automated exposure control, adjustment of the mA and/or kV according to patient size, and/or use of iterative reconstruction technique. COMPARISON: No relevant prior studies available. FINDINGS: No acute intracranial hemorrhage. No midline shift or mass effect. The territorial kim-white matter differentiation is maintained throughout. Age-related cerebral volume loss. Periventricular and subcortical white matter hypoattenuation, consistent with chronic microangiopathy. The visualized orbits appear grossly unremarkable. The calvarium is intact. The visualized paranasal sinuses and mastoid air cells are grossly clear. IMPRESSION: No acute intracranial hemorrhage, midline shift, or mass effect.
[2024-11-16 02:27] LABS: Bilirubin,Urine Negative (Negative); Blood,Urine Negative (Negative); Color,Urine Yellow; Glucose,Urine (UA) Negative (Negative); Ketones,Urine 1+ (Negative); Leukocyte Esterase,Urine Negative (Negative); Nitrite,Urine Negative (Negative); PH, Urine 5.5 (5.0-8.0); Protein,Urine Negative (Negative); Specific Gravity,Urine 1.022 (1.001-1.035); Urobilinogen,Urine <2.0 mg/dL (<2.0)
--- NOTE | 2024-11-16 02:36 | XR ---
EXAM: XR Chest, 1 View CLINICAL HISTORY: ITS.REASON XR Reason: altered mental status TECHNIQUE: Frontal view of the chest. COMPARISON: No relevant prior studies available. FINDINGS: Lungs: Unremarkable. No consolidation. Pleural space: Unremarkable. No pneumothorax. Heart: Unremarkable. No cardiomegaly. Mediastinum: Unremarkable. Bones/joints: Unremarkable. IMPRESSION: No consolidation.
[2024-11-16 03:00] LABS: Barbiturate Screen,Urine Not Detected (NotDetected); Benzodiazepines Screen,Urine Detected (NotDetected); Opiate Screen,Urine Not Detected (NotDetected); Oxycodone Screen, Urine Not Detected (NotDetected); Phencyclidine Screen,Urine Not Detected (NotDetected); Tricyclic Antidepressant,Urine Not Detected (NotDetected); Urn Cannabinoid Scrn Not Detected (NotDetected)
[2024-11-16] MEDS ORDERED: NALOXONE 0.4 MG/ML 1 ML VIAL IV PRN (06:03)
[2024-11-16] MEDS: SODIUM CHLORIDE 0.9% 1,000 ML IV SCH (07:28)
[2024-11-16 09:22] LABS: Magnesium 2.0 mg/dL (1.6-2.3)
[2024-11-16 10:08] VITALS: BP 127/76; PULSE 63; RESP 16; TEMP 97.8
[2024-11-16] MEDS ORDERED: NYSTATIN 100,000 UNIT/GM POWD 15 GM TOPICAL PRN (10:44)
--- NOTE | 2024-11-16 10:44 | P.HPIM ---
History of Present Illness H&P Date: 11/16/24 History of Presenting Illness: Patient is a 59-year-old male with a past medical history of Alzheimer's dementia. He presented to our facility secondary to reports of worsening mentation. Per documentation in chart patient's stated patient has been less active than normal, often sit and stare off, and exhibiting increased confusion over the past few days. She does state that patient's Depakote was recently increased secondary to mood changes. Patient currently alert to self only and unable to provide any history answering only few yes or no questions. He denies having any pain or complaints and frequently giggling when spoken to. He denies having any pain or discomfort. Patient's reportedly just left facility a short while ago and therefore information obtained was obtained from the nursing staff, ED physician, and chart. Vital signs upon arrival to our facility show blood pressure 2, heart rate 56, respiratory rate 18, temp 96.6 F axillary, and SpO2 of 97% on room air. [id number] glucose 107. EKG completed showing sinus bradycardia 58 bpm with no significant T wave or ST abnormality showing no signs of acute ischemia upon personal review and interpretation. CT brain negative for acute intracranial process reporting age-related cerebral volume loss with periventricular and subcortical white matter hypoattentuation consistent with chronic microangiography. Chest x-ray negative for acute cardiopulmonary process. CBC, coagulation profile and CMP were unremarkable. Magnesium normal findings at 2.0. Troponin was negative at less than 0.012. TSH was 4.500. Urinalysis positive for ketones negative for blood or infection. Urine drug screen positive for benzodiazepines. Serum alcohol negative at less than 10. Valproic acid therapeutic at 67.3. Ammonia level normal at less than 9. Patient admitted under our services with consultation to neurology. Review of systems: Pertinent positives and negatives as discussed in HPI, a complete review of systems was performed and all other systems are negative. Physical exam: Vital signs reviewed and stable. General: Nontoxic, no distress and appears stated age. Derm: Skin warm and dry, normal coloration for ethnicity. Head: Atraumatic, normocephalic and symmetric. Eyes: EOM's intact, no lid lag, and anicteric sclera Mouth: no lip lesions, mucus membranes moist Cardiovascular: regular rate and rhythm with normal S1S2, no murmur, positive posterior tibial pulses bilaterally, and cap refill < 2 seconds. Lungs: Respirations even, regular, and unlabored on room air. Lungs CTA bilaterally, no rhonchi, no rales, no wheezing, and no accessory muscle usage. Abdominal: soft, nontender to palpation, no guarding, no appreciable organomegaly Ext: No gross muscle atrophy, no edema, no contractures. Moving all extremities independently only following limited commands unable to assess strength but movements appear symmetrical and equal. Neuro/Psych: Patient alert to self only. Only able to follow minimal commands such as raise arms or squeeze hands but loses focus quickly. Patient smiling and giggling throughout exam and when spoken to or asked questions. Speech was minimal and slightly garbled. Assessment and Plan of Care: Acute alteration in mental status, unclear cause possibly secondary to acute delirium resulting from adverse side effect of increased dose of Depakote vs worsening dementia vs other neurologic/psychiatric disorder Alzheimer's dementia -CT brain negative for acute intracranial process reporting age-related cerebral volume loss with periventricular and subcortical white matter hypoattentuation consistent with chronic microangiography. -Maintain safe and supportive care with assistance and redirection as needed. -Neurochecks every 4 hours. -Fall precautions -Consult to neurology, appreciate recommendations -Depakote level therapeutic at 67.3, at this time we will continue scheduled dose of valproic acid pending evaluation and further recommendations from neurologist. -TSH, magnesium, blood glucose levels, urinalysis, and ammonia levels all normal values showing no abnormalities. Urine drug screen positive for benzodiazepines. -Continue home medication regimen with Prozac 60 mg 5 days weekly (////), Namenda 5 mg daily, and valproic acid 375 mg twice daily. Data and imaging reviewed: As stated above in HPI CODE STATUS: Full code DVT prophylaxis: Lovenox Discussed with: Pt, RN, and ED physician Anticipated discharge date: Pending clinical course Anticipated discharge place: Home Patient was seen independently by Nurse Practitioner. This document was prepared using [employer] dictation software. Please allow for errors in test rider while rare they do occur. Gabriel Gannon NP rendered care for this patient independently, reviewed the f indings and plan as documented in the note above and agree with plan. I did not physically speak with or examine the patient on this date. Past Medical History Past Medical History: Dementia Additional Past Medical History / Comment(s): Alzheimers History of Any Multi-Drug Resistant Organisms: Unobtainable Date of last positivie culture/infection: 06/01/24 MDRO Source:: buttock Additional Past Surgical History / Comment(s): eye surgery metal flake removed from eye in past Past Psychological History: Unable to Obtain Smoking Status: Unknown if ever smoked Past Alcohol Use History: Unable to Obtain Past Drug Use History: Unable to Obtain Medications and Allergies Home Medications Medication Instructions Recorded Confirmed Type FLUoxetine HCL [Sarafem] 60 mg PO MOTUWETHFR 05/31/24 11/16/24 History Valproic Acid Oral Soln [Depakene 375 mg PO BID 05/31/24 11/16/24 History Syrup] Ammonium Lactate [Amlactin] 1 applic TOPICAL DAILY 11/16/24 11/16/24 History Memantine [Namenda] 5 mg PO DAILY 11/16/24 11/16/24 History Nystatin 100,000 Unit/gm Powd 1 applic TOPICAL BID PRN 11/16/24 11/16/24 History [Mycostatin Powder] Allergies Allergy/AdvReac Type Severity Reaction Status Date / Time No Known Allergies Allergy Verified 06/02/24 13:01 Physical Exam Vitals: Vital Signs Temp Pulse Resp BP Pulse Ox 11/16/24 05:00 59 L 17 115/74 11/16/24 03:14 68 16 115/68 94 L 11/16/24 02:10 73 18 111/72 100 11/16/24 00:10 96.6 F L 56 L 18 111/92 97 Intake and Output 11/15/24 11/16/24 11/16/24 22:59 06:59 14:59 Other: Weight 68.039 kg Results CBC & Chem 7: 11/16/24 00:39 11/16/24 00:39 Labs: Abnormal Lab Results - Last 24 Hours (Table) 11/16/24 11/16/24 Range/Units 01:35 01:35 Urine Ketones 1+ H (Negative) U Benzodiazepines Scrn Detected H (NotDetected)
[2024-11-16] MEDS: MEMANTINE 5 MG TAB PO SCH (12:50)
[2024-11-16] MEDS: AMMONIUM LACTATE 12% LOTION 225 GM BTL TOPICAL SCH (12:51)
[2024-11-16] MEDS: VALPROIC ACID ORAL SOLN 250 MG/5 ML CUP PO SCH (12:51)
--- NOTE | 2024-11-16 14:04 | P.DS ---
Providers Date of admission: 11/16/24 06:03 Expected date of discharge: 11/16/24 Attending physician: Rin Lindsay MD Primary care physician: Kevin Farmer MD Hospital Course: Discharge Diagnosis: Acute alteration in mental status, unclear cause possibly secondary to acute delirium resulting from adverse side effect of increased dose of Depakote vs worsening dementia vs other neurologic/psychiatric disorder. Patient is reportedly at baseline mentation. Alzheimer's dementia. Chronic slow healing pressure ulcer of sacrum/coccyx. Hospital Course: Patient is a 59-year-old male with a past medical history of Alzheimer's dementia. He presented to our facility secondary to reports of worsening mentation. Per documentation in chart patient's stated patient has been less active than normal, often sit and stare off, and exhibiting increased confusion over the past few days. She does state that patient's Depakote was recently increased secondary to mood changes. Patient currently alert to self only and unable to provide any history answering only few yes or no questions. He denies having any pain or complaints and frequently giggling when spoken to. He denies having any pain or discomfort. Patient's reportedly just left facility a short while ago and therefore information obtained was obtained from the nursing staff, ED physician, and chart. Vital signs upon arrival to our facility show blood pressure 2, heart rate 56, respiratory rate 18, temp 96.6 F axillary, and SpO2 of 97% on room air. [id number] glucose 107. EKG completed showing sinus bradycardia 58 bpm with no significant T wave or ST abnormality showing no signs of acute ischemia upon personal review and interpretation. CT brain negative for acute intracranial process reporting age-related cerebral volume loss with periventricular and subcortical white matter hypoattentuation consistent with chronic microangiography. Chest x-ray negative for acute cardiopulmonary process. CBC, coagulation profile and CMP were unremarkable. Magnesium normal findings at 2.0. Troponin was negative at less than 0.012. TSH was 4.500. Urinalysis positive for ketones negative for blood or infection. Urine drug screen positive for benzodiazepines. Serum alcohol negative at less than 10. Valproic acid therapeutic at 67.3. Ammonia level normal at less than 9. Patient admitted under our services with consultation to neurology. Called and spoke with patient's primary care team at [facility] regarding patient's admission to the hospital and current mental status. Addressed in detail with Charles GRIFFITHS that patient is alert to self only, staring off giggling and smiling throughout examination and not following many commands. Charles GRIFFITHS at [facility] informed me that this is the baseline and has been at this baseline for approximately 7 to 8 months and is unchanged. Called to notify neurologist stating patient is at his baseline mentation and neurology consult to be canceled at this time. Called and discussed all testing and imaging results in detail with patient's at 1:56 PM along with recommendations for outpatient follow-up with neurologist and neuropsychiatrist for further evaluation of Mr. Mancilla's advanced dementia. Called and discussed discharge plans with patient's PCP at [facility] and they are in agreement with discharge planning with no further recommendations at this time. Physical exam: Vital signs reviewed and stable. General: Nontoxic, no distress and appears stated age. Derm: Skin warm and dry, normal coloration for ethnicity. Head: Atraumatic, normocephalic and symmetric. Eyes: EOM's intact, no lid lag, and anicteric sclera Mouth: no lip lesions, mucus membranes moist Cardiovascular: regular rate and rhythm with normal S1S2, no murmur, positive posterior tibial pulses bilaterally, and cap refill < 2 seconds. Lungs: Respirations even, regular, and unlabored on room air. Lungs CTA bilaterally, no rhonchi, no rales, no wheezing, and no accessory muscle usage. Abdominal: soft, nontender to palpation, no guarding, no appreciable organomegaly Ext: No gross muscle atrophy, no edema, no contractures. Moving all extremities independently only following limited commands unable to assess strength but movements appear symmetrical and equal. Neuro/Psych: Patient alert to self only. Only able to follow minimal commands such as raise arms or squeeze hands but loses focus quickly. Patient smiling and giggling throughout exam and when spoken to or asked questions. Speech was minimal and slightly garbled and repetitive. A total of 34 minutes of time were spent preparing this complex discharge summary. Pt was discharged on 11/16/2024 at 2:03 PM Patient was seen independently by Nurse Practitioner. This document was prepared using [employer] dictation software. Please allow for errors in medical transcription radiology while rare they do occur. Gabriel Gannon NP rendered care for this patient independently, reviewed the findings and plan as documented in the note above. I did not physically speak with or examine the patient on this date. Patient Condition at Discharge: Stable Plan - Discharge Summary New Discharge Prescriptions: Continue FLUoxetine HCL [Sarafem] 60 mg PO MOTUWETHFR Valproic Acid Oral Soln [Depakene Syrup] 375 mg PO BID Ammonium Lactate [Amlactin] 1 applic TOPICAL DAILY Nystatin 100,000 Unit/gm Powd [Mycostatin Powder] 1 applic TOPICAL BID PRN PRN Reason: Rash Memantine [Namenda] 5 mg PO DAILY Discharge Medication List FLUoxetine HCL [Sarafem] 60 mg PO MOTUWETHFR 05/31/24 [History] Valproic Acid Oral Soln [Depakene Syrup] 375 mg PO BID 05/31/24 [History] Ammonium Lactate [Amlactin] 1 applic TOPICAL DAILY 11/16/24 [History] Memantine [Namenda] 5 mg PO DAILY 11/16/24 [History] Nystatin 100,000 Unit/gm Powd [Mycostatin Powder] 1 applic TOPICAL BID PRN 11/16/24 [History] Follow up Appointment(s)/Referral(s): Kevin Farmer MD [Primary Care Provider] - 1-2 days Patient Instructions/Handouts: Fall Prevention for Older Adults (DC), Altered Mental Status (ED) Activity/Diet/Wound Care/Special Instructions: Activity: Secondary to advanced Alzheimer's dementia, patient requires 24-hour supervision. Maintain fall precautions. Diet: Heart healthy and carb consistent diet. Special Instructions: Take all of your medications as directed and remember to keep all of your doctor's appointments and follow-up as needed. As discussed with patient's via telephone conversation with discharge instructions it is highly recommended that patient follow-up with both a neurologist and neuropsychiatrist for further cognitive testing and management of this advanced dementia. Thank you for allowing us to participate in your care, it was truly a pleasure having you for our patient!!! Discharge Disposition: HOME SELF-CARE
[2024-11-17] MEDS ORDERED: ENOXAPARIN 40 MG/0.4 ML SYRINGE SQ SCH (09:00)
== END 2024-11-16 15:52 | disposition home or self-care (01) ==
LOC: EC 00:08 → 6NMEDSUR 06:03
PROVIDERS: ADMIT Internal Medicine; ATTEND Internal Medicine
DX: I10 Essential (primary) hypertension (principal)
CPT/HCPCS: 96361 ×2; 96360; 99285; 11730; 36415; 93005; 80164; 80053; 84443; 82140; 83735; 84484; 85025; 85610; 85730; 81003; 80306; 80320; 71045; 70450; G0378 ×2